=== PATIENT | male | born 1965 | race Caucasian/White ===

== ENCOUNTER → 2023-01-14 | Outpatient (CLI) | payer OTHER ==
--- NOTE | 2023-01-14 11:31 | CA ---
Exercise Stress Test Report Name: Anup Carson Exam Date: 01/14/2023 09:12 Exam Location: [place] Stress Ht (in): 67 Wt (lb): 200 BSA: 2.02 Ordering Phys: Mansoor Ramon DO Referring Phys: BO, Technologist: Mansoor Carlos Age: 57 Gender: M : 1965 Procedure CPT: Indications: R07.9 CHEST PAIN, UNSPECIFIED ICD-10 Codes: Patient History: Medications: METAMUCIL Meds past 24 hrs: Pretest Chest Pain: STRESS TEST Solomon Protocol Exercise Duration (min:sec): 09:[address] Depressions (mm): 1.5 Angina Score: 0 Keene Score: 2.33 Resting HR (bpm): 112 Peak HR (bpm): 177 Resting BP (mmHg): 122 / 81 Peak BP (mmHg): 143 / 79 MPHR: 165 Target HR: 140 % MPHR: 107 METS: 11.8 Total Dose: Peak Dose: Atropine: Double Product: 42840 BP Response: Stress Termination: Fatigue,TARGET HR REACHED/MAX EXERTION Stress Symptoms: FATIGUE Stress Summary: ECG ANALYSIS Resting ECG: Sinus rhythm. Normal conduction. No arrhythmias. Normal repolarization. Stress EC.[address] downsloping change. His EKG changes persisted in recovery CONCLUSIONS 1. Good exercise tolerance 2. Moderately Positive echocardiographic stress testing with 1.[address] segment depression that persisted in recovery ST segment changes consistent with ischemia. Dr. Maryse Mixon MD (Electronically Signed) Final Date: 14 Jan 2023 11:30
== END | disposition home or self-care (01) ==
LOC: RADNMMAIN 08:34
PROVIDERS: ATTEND Family Medicine
DX: F32.A Depression, unspecified (principal); R07.9 Chest pain, unspecified; I49.9 Cardiac arrhythmia, unspecified
CPT/HCPCS: 93017

== ENCOUNTER → 2023-05-09 | Day surgery (SDC) | payer OTHER ==
[2023-05-06 12:02] VITALS: BMI 30.5
[~2023-05-09] MED LIST: ALPRAZolam 0.25 MG TAB PO PRN; ALPRAZolam 0.5 MG TAB PO PRN; ASPIRIN 325 MG TAB PO STA; ASPIRIN 81 MG PO SCH; ATORVASTATIN 80 MG TAB PO SCH; ATORVASTATIN 80 MG TAB PO STA; HEPARIN SODIUM 1,000 UN/ML (10ML VL) IV ONE; HEPARIN SODIUM,PORCINE (1 ML) 2,500 UNIT in SODIUM CHLORIDE 0.9% 250 ML IRRIGATION PRN; HEPARIN SODIUM,PORCINE 10,000 UNIT in SODIUM CHLORIDE 0.9% 1,000 ML IRRIGATION PRN; IOPAMIDOL-370 100ML BTL INJ ONE; LIDOCAINE 1% INJ 10MG/ML (5 ML VIAL-PF) SQ ONE; METOPROLOL TARTRATE 25 MG TAB PO SCH; NITROGLYCERIN SL TABS 0.4 MG TAB SUBLINGUAL PRN; NON FORMULARY DRUG (Tirzepatide [Mounjaro] 2.5 MG/0.5 ML Pen.Injctr) SQ SCH; RX INFO: IV CONTRAST WAS GIVEN 1 EACH MISC MISCELLANE PRN; SODIUM CHLORIDE 0.9% 1,000 ML IV SCH; SODIUM CHLORIDE 0.9% 1,000 ML in EMPTY BAG 1 BAG IV SCH; VERAPAMIL SYRINGE (5 MG/10 ML) INTRAARTER ONE; fentaNYL (PF) 50 MCG/ML 2 ML AMP IVP ONE
[2023-05-09 08:05] LABS: Glucose,Whole Blood 168 mg/dL (70-110)
--- NOTE | 2023-05-09 08:59 | P.CARDCATH ---
Date of Procedure: 05/09/23 Description of Procedure: Cardiac Catheterization: The patient is a 57-year-old male with a known history of diabetes, hyperlipidemia who has been complaining of progressive dyspnea on exertion. He had an abnormal stress test. Recommendations were made regarding cardiac catheterization, the risks and the complications were discussed with the patient who is in full understanding and agreement. Procedure Description: Patient was brought to cathode builder in fasting semi-sedated state after receiving Fentanyl and Benadryl achieiving moderate conscious sedated state. Using Xylocaine Anesthesia and Seldinger technique, a 6-Kittitian sheath was introduced in the right radial artery . Subsequently, selective coronary angiography was performed using a 5-Kittitian 3.5 bend Mana catheter. Multiple views of the coronary artery including hemiaxial views were obtained. The 5-Kittitian pigtail catheter was used to cross the aortic valve and LVEDP was calculated. Following that, catheter and sheath were removed. Hemostasis was obtained with deployment of TR band . There was no immediate complication. Patient was returned to room in stable condition. Of note, the patient received a total of 5000 units of intravenous heparin as well as intra-arterial verapamil. Findings: Fluoroscopy: Calcification of the left main and LAD was noted Left main: This is a large size vessel, trifurcating into left circumflex, ramus intermedius and LAD, the distal left main has 30-40 % plaque LAD: This is a large size vessel, reaching to the apex giving rise to small diagonal branch. The proximal LAD has a 90% stenosis there is another plaque of 95% stenosis in the midsegment and another one in the mid distal segment of 90%. Left circumflex: This is a small nondominant vessel giving rise to small obtuse marginal branch and the third obtuse marginal branch is small in caliber and subtotally occluded Ramus intermedius: This is a large branching vessel, the proximal segment of the ramus intermedius has a 90% stenosis in one of the branch has a 99% stenosis there is single-vessel has no high-grade stenosis RCA: This is a large size vessel, bifurcating into PDA and PLV, dominant. The right coronary artery proximally has a 70% stenosis, the midsegment has an eccentric 85-90% stenosis and distally has a 99% stenosis. Left Ventriculogram: Not performed Hemodynamics: There was no gradient across the aortic valve , LVEDP was 20-25 mmHg Conclusion: 1. Calcified left main and proximal LAD 2. Severe triple-vessel disease 3. Right dominance 4. Mildly elevated LVEDP Recommendations: In view of the findings, the multivessel disease, the history of diabetes I have recommended to proceed with evaluation for CABG. The findings and the recommendations were discussed with the patient and the family and they were in full understanding and agreement. Duration of sedation is 17 minutes.
--- NOTE | 2023-05-09 10:01 | P.GSCN ---
History of Present Illness Consult date: 05/09/23 Reason for Consult: Multivessel CAD Requesting physician: Maryse Mixon History of present illness: This is a 57 year old male patient who follow outpatient with Dr. Hemanth Sy for primary care. He has a previous medical history of type 2 diabetes, hyperlipidemia, and is a lifelong nonsmoker. 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 For the last 1-1.5 years the patient reports a noticeable decrease in his activity level with increased exertional dyspnea. He denies any chest pain or pressure, dizziness, diaphoresis, palpitations, or any other symptomatology. Initially he thought this was just part of getting older, however it has been affecting his quality of life so he presented to his primary care physician who recommended a stress test. The stress test revealsed 1.[address] segment depression which persisted long into recovery suggesting ischemia. Due to this finding he was sent to Dr. Mixon who recommended echocardiogram and heart catheterization. Echocardiogram was completed in the cardiology office on 05/06/2023, results are not yet available to us. Heart catheterization was completed today demonstrating distal left main stenosis 30-40%, proximal LAD stenosis 90%, mid to distal LAD 95-90%, small nondominant left circumflex with subtotally occluded third obtuse marginal branch, 90% proximal ramus stenosis with a 99% branch lesion, proximal RCA stenosis 70%, mid RCA stenosis 85-90%, and distal RCA stenosis 99%. Left ventriculogram was completed with no gradient across the aortic valve, LVEDP 20- 25 mmHg. Due to findings on heart catheterization consultation was placed to cardiothoracic surgery for surgical revascularization recommendations. Review of Systems Review of systems was completed and was negative except as noted - Cardiovascular Reports as per HPI, Reports decreased exercise tolerance, Reports dyspnea on exertion Past Medical History Past Medical History: Coronary Artery Disease (CAD), Diabetes Mellitus, Hyperlipidemia Additional Past Medical History / Comment(s): hx of covid x2, remains unvaccinated History of Any Multi-Drug Resistant Organisms: None Reported Additional Past Surgical History / Comment(s): right cataract, wisdom teeth. Past Anesthesia/Blood Transfusion Reactions: No Reported Reaction Past Psychological History: No Psychological Hx Reported Smoking Status: Never smoker Past Alcohol Use History: Occasional Additional Past Alcohol Use History / Comment(s): Drinks approximately 1 drink 5 times per week Past Drug Use History: None Reported - Past Family History Mother Family Medical History: Congestive Heart Failure (CHF), Diabetes Mellitus Additional Family Medical History / Comment(s): Mom Father Family Medical History: Hypertension Medications and Allergies Home Medications Medication Instructions Recorded Confirmed Type Aspirin [Adult Low Dose Aspirin EC] 81 mg PO DAILY 05/06/23 05/09/23 History Metoprolol Tartrate [Lopressor] 25 mg PO BID 05/06/23 05/09/23 History Rosuvastatin Calcium [Crestor] 40 mg PO DAILY 05/06/23 05/09/23 History Tirzepatide [Mounjaro] 2.5 mg SQ SA 05/06/23 05/09/23 History Allergies Allergy/AdvReac Type Severity Reaction Status Date / Time No Known Allergies Allergy Verified 05/06/23 11:49 Surgical - Exam CONSTITUTIONAL: Awake and alert, appears comfortable, cooperative, well- developed, well-nourished, no pain, no acute distress EYES: Pupils equal, round, reactive to light, normal ocular movement ENT: Moist mucous membranes without oral lesions present NECK: No masses, no bruits, trachea midline RESPIRATORY: Lungs sounds clear to auscultation bilaterally. Respirations even, nonlabored. Currently on room air with oxygen saturation 99%. Strong cough. No chest wall deformities. No clubbing or cyanosis present CARDIOVASCULAR: S1, S2 present. Regular rate and rhythm, sinus rhythm on telemetry. Palpable peripheral pulses bilaterally. No edema present. No calf pain or tenderness noted. No significant lower extremity varicosities noted. Left radial Jonathan's test less than 8 seconds. Right radial T band in place GASTROINTESTINAL: Abdomen soft, nontender, nondistended without masses or organomegaly noted. There is no rebound or guarding present. Active bowel soun ds present 4 quadrants. GENITOURINARY: Deferred INTEGUMENTARY: Skin is warm and dry with evidence of good perfusion. NEUROLOGIC: Cranial nerves II through XII intact, normal coordination, no o bvious motor or sensory deficits, speech is normal MUSKULOSKELETAL: Able to move all extremities, strength equal bilaterally, normal posture PSYCHIATRIC: Alert and oriented to person place and time, appropriate affect, intact judgment and insight Results - Labs Abnormal Lab Results - Last 24 Hours (Table) 05/09/23 Range/Units 08:01 POC Glucose (mg/dL) 168 H (70-110) mg/dL - Imaging Additional studies: Heart catheterization films reviewed Assessment and Plan Assessment: Triple-vessel coronary artery disease Dyspnea on exertion, secondary to above Hyperlipidemia, cholesterol 330, triglycerides 184, LDL 242, recently started on Crestor Type 2 diabetes, hemoglobin A1c 9.7%, recently started on Mounjaro Lifetime nonsmoker Plan: The patient was seen and examined in the extended stay unit with present. Chart/diagnostics were reviewed. The case will be discussed in detail with Dr. Mcdaniel. The usual perioperative course of open heart surgery was discussed in detail with the patient and his , risks and benefits were reviewed, all questions were answered. Preoperative testing was initiated. Once completed will calculate STS risk score and discuss with the patient. Recommend continuing aspirin, statin, beta zhou therapy. Cardiology office called for echocardiogram report. More recommendations to follow regarding surgical revascularization once seen by surgeon. Thank you Dr. Mixon for this consult. I have personally seen and examined the patient, performed the documentation and the assessment and plan as written. Number of minutes spent on the visit: 30. MARÍA ELENA Danielle Attending Addendum: The patient was seen and evaluated with the DATA ENTRY MACHINE OPERATOR above. Agree with her assessment and plan. This is a 57 year-old active M with a hx of DM who presents for elective cardiac cath for anginal equivalent symptomology over the last 1.5 years. He is found to have significant 3v CAD. He is a good candidate for CABG, which was recommended. We will perform all pre-operative testing now and plan for myocardial revascularization within the next week or so. I spent 45 minutes reviewing the data and discussing plan of care with the patient and the care team. Time with Patient: Greater than 30
--- NOTE | 2023-05-09 11:06 | US ---
EXAMINATION TYPE: US carotid duplex BILAT DATE OF EXAM: 05/09/2023 COMPARISON: NONE CLINICAL INDICATION: Male, 57 years old with history of preop cardiac surgery; pre open heart TECHNIQUE: Carotid duplex ultrasound examination. Indirect Doppler criteria was utilized. FINDINGS: EXAM MEASUREMENTS: RIGHT: Peak Systolic Velocity (PSV) cm/sec ----- Right CCA: 74.0 ----- Right ICA: 88.4 ----- Right ECA: 110.0 ICA/CCA ratio: 1.2 RIGHT: End Diastole cm/sec ----- Right CCA: 17.2 ----- Right ICA: 28.1 ----- Right ECA: 13.2 LEFT: Peak Systolic Velocity (PSV) cm/sec ----- Left CCA: 68.9 ----- Left ICA: 108.0 ----- Left ECA: 108.0 ICA/CCA ratio: 1.6 LEFT: End Diastole cm/sec ----- Left CCA: 21.2 ----- Left ICA: 33.1 ----- Left ECA: 10.3 VERTEBRALS (direction of flow): Right Vertebral: Antegrade Left Vertebral: Antegrade Rhythm: Normal BOLT THREADER NOTES: Mild homogeneous plaque with no significant stenosis IMPRESSION: Mild plaque without hemodynamically significant stenosis. Criteria for Assigning % of Stenosis / Diameter reduction (Estimation based on the indirect measurements of the internal carotid artery velocities (ICA PSV). 1. Normal (no stenosis)=ICA PSV < 125 cm/s: ratio < 2.0: ICA EDV<40 cm/s. 2. Less than 50% stenosis=ICA PSV < 125 cm/s: ratio < 2.0: ICA EDV<40 cm/s. 3. 50 to 69% stenosis=ICA PSV of 125 to 230 cm/s: ration 2.0 ? 4.0: ICA EDV 40-100 cm/s. 4. Greater than 70% stenosis to near occlusion= ICA PSV > 230 cm/s: ratio > 4.0: ICA EDV > 100 cm/s. 5. Near occlusion= ICA PSV velocities may be low or undetectable: variable ratio and ICA EDV. 6. Total occlusion=unable to detect flow.
--- NOTE | 2023-05-09 11:10 | US ---
EXAMINATION TYPE: Pre-Operative Non-Invasive Evaluation of the hand for Potential Radial Artery Sruthi bethea, Measurements only DATE OF EXAM: 05/09/2023 10:35 AM CLINICAL INDICATION: Male, 57 years old with history of measurements only; pre open heart SIDE PERFORMED: Left TECHNIQUE: Radial artery is measured utilizing real time linear array sonography. Dominant hand: Right Duplex Findings: Radial Artery: Color flow seen Measurements in mm, transverse view: Left Radial: Proximal: 4.1 x 3.5 mm Mid: 2.2 x 2.2 mm Distal: 2.8 x 3.2 mm IMPRESSION: 1. Left radial measurements listed above. 2. Performing surgeon to determine viability as conduit.
--- NOTE | 2023-05-09 11:10 | US ---
EXAMINATION TYPE: US vein mapping BILAT DATE OF EXAM: 05/09/2023 10:35 AM COMPARISON: NONE CLINICAL INDICATION: Male, 57 years old with history of preop cardiac surgery; pre op SIDE PERFORMED: Bilateral TECHNIQUE: Lower extremity saphenous vein is examined and measured utilizing real time linear array sonography. DUPLEX FINDINGS: Greater Saphenous: Color flow seen Measurements in mm: Right Greater Saphenous: Groin: 5.4 x 6.8 mm High Thigh: 4.0 x 3.9 mm Mid Thigh: 2.1 x 2.4 mm Above Knee: 2.4 x 2.9 mm Knee: 2.2 x 3.0 mm Below Knee: 2.3 x 3.7 mm Mid Calf: 1.7 x 1.8 mm At Ankle: 2.4 x 2.9 mm Left Greater Saphenous: Groin: 5.2 x 5.5 mm High Thigh: 3.1 x 3.8 mm Mid Thigh: 3.7 x 4.1 mm Above Knee: 4.0 x 4.6 mm Knee: 4.3 x 4.6 mm Below Knee: 5.4 x 5.7 mm Mid Calf: 1.9 x 2.4 mm At Ankle: 3.3 x 4.1 mm IMPRESSION: 1. Bilateral GSV measurements listed above. 2. Performing surgeon to determine viability as conduit.
[2023-05-09 12:07] VITALS: BP 135/81; PULSE 78; RESP 16; TEMP 97.8
--- NOTE | 2023-05-09 12:09 | CT ---
EXAMINATION TYPE: CT chest wo con CT DLP: 450 mGycm, Automated exposure control for dose reduction was used. DATE OF EXAM: 05/09/2023 11:59 AM COMPARISON: None CLINICAL INDICATION:Male, 57 years old with history of eval ascending aorta for calcification; PHH, a bnormal CVL study TECHNIQUE: Multiple axial images were obtained through the chest without IV contrast. Lack of IV or o ral contrast limits evaluation of solid and hollow organ viscera. . Coronal and sagittal reformats re viewed. FINDINGS: LUNGS/ PLEURA: No pleural effusion, focal consolidation, or pneumothorax. No pulmonary nodule or mass . AIRWAY: Patent and unremarkable.. HEART: Size within normal limits. No pericardial effusion. Mild to moderate three-vessel coronary art pablo atherosclerotic disease. Minimal aortic valvular calcifications. Minimal aortic arch calcificatio ns. MEDIASTINUM: No evidence of adenopathy. VASCULATURE: No aortic aneurysm. MUSCULOSKELETAL: Mild disc degeneration changes are present throughout the thoracolumbar spine. No ac yakelin osseous abnormality. SOFT TISSUES/LYMPH NODES: Bilateral gynecomastia. LOWER NECK: No significant findings. UPPER ABDOMEN: Contrast demonstrated within both collecting systems from prior heart catheter. IMPRESSION: 1. No acute thoracic process. 2. Mild to moderate three-vessel coronary artery atherosclerotic disease.
[2023-05-09 12:45] LABS: HCT 40.9 % (39.0-53.0); HGB 14.3 gm/dL (13.0-17.5); MCH 28.3 pg (25.0-35.0); MCV 80.7 fL (80.0-100.0); Mean Platelet Volume 10.5; Platelet Count 159 k/uL (150-450); RBC 5.06 m/uL (4.30-5.90); RDW 12.1 % (11.5-15.5); WBC 7.5 k/uL (3.8-10.6)
[2023-05-09 13:17] LABS: African American GFR (CKD) >90 (>60 ml/min/1.73 sqM); Anion Gap 9 mmol/L; Blood Urea Nitrogen 16 mg/dL (9-20); Calcium 8.6 mg/dL (8.4-10.2); Carbon Dioxide 26 mmol/L (22-30); Chloride 104 mmol/L (98-107); Glucose 140 mg/dL (74-99); Non-African American GFR(CKD) >90 (>60 ml/min/1.73 sqM); Sodium 139 mmol/L (137-145)
[2023-05-09 13:27] LABS: Partial Thromboplastin Time 24.7 sec (22.0-30.0); Prothrombin Time 10.4 sec (9.0-12.0)
--- NOTE | 2023-05-09 14:06 | XR ---
EXAMINATION TYPE: XR chest 2V DATE OF EXAM: 05/09/2023 COMPARISON: NONE HISTORY: Shortness of breath TECHNIQUE: Frontal and lateral views of the chest are obtained. FINDINGS: Scattered senescent parenchymal changes noted. Hyperinflation compatible with COPD. No evidence for infiltrate. No evidence for atelectasis. Heart size is stable. Mediastinal structures are stable and grossly unremarkable. No evidence for hilar prominence. Degenerative changes dorsal spine. IMPRESSION: 1. No evidence for acute pulmonary disease.
[2023-05-09 20:25] LABS: Chol/HDL Ratio 3.16 Ratio; LDL Cholesterol,Calculated 73.2 mg/dL (0.0-131.0); VLDL Calculation 17.66 mg/dL (5.00-40.00)
[2023-05-09 22:52] LABS: Hepatitis A Antibody IgM Nonreactive; Hepatitis B Core IgM Nonreactive; Hepatitis B Surface Antigen Nonreactive; Hepatitis C IgG Antibody Nonreactive
== END | disposition home or self-care (01) ==
LOC: CATHCVL 07:44
PROVIDERS: ATTEND Internal Medicine Interventional Cardiology
DX: I25.10 Atherosclerotic heart disease of native coronary artery without angina pectoris (principal); E11.9 Type 2 diabetes mellitus without complications; E78.5 Hyperlipidemia, unspecified; F10.90 Alcohol use, unspecified, uncomplicated; Z87.891 Personal history of nicotine dependence; Z86.16 Personal history of COVID-19; Z98.890 Other specified postprocedural states; Z82.49 Family history of ischemic heart disease and other diseases of the circulatory system; Z79.82 Long term (current) use of aspirin
CPT/HCPCS: 94150; 93458; 80061; 80048; 80074; 83735; 85027; 85610; 85730; 87070; 83036; 71046; 93931; 93970; 93880; 71250; C1769 ×2; C1894; J2001; J3010; J1644; Q9967; 86850; 86900; 86901

== ENCOUNTER 2023-05-14 05:35 | Inpatient (IN) | payer OTHER ==
[~2023-05-14 05:35] MED LIST changes: +ALBUMIN HUMAN 25% 50 ML IV ONE; +ALBUMIN HUMAN 5% 500 ML IVPB ONE; -ALPRAZolam 0.25 MG TAB PO PRN; -ALPRAZolam 0.5 MG TAB PO PRN; +ASPIRIN 325 MG TAB PO ONE; -ASPIRIN 325 MG TAB PO STA; -ASPIRIN 81 MG PO SCH; +ATORVASTATIN 10 MG TAB PO ONE; -ATORVASTATIN 80 MG TAB PO SCH; -ATORVASTATIN 80 MG TAB PO STA; +CALCIUM CHLORIDE 100 MG/ML 10 ML SYRINGE IV ONE; +CHLORHEXIDINE GLUCONATE 15 ML CUP MUCOUS MEM ONE; +CLEVIDIPINE BUTYRATE 25 MG in EMPTY BAG 1 BAG IV ONE; +DILTIAZEM 125 MG in SODIUM CHLORIDE 0.9% 100 ML IV ONE; +ELECTROLYTE-A SOLUTION 1,000 ML with POTASSIUM CHLORIDE 100 MEQ, MAGNESIUM SULFATE 16 M... IV ONE; +ELECTROLYTE-A SOLUTION 1,000 ML with POTASSIUM CHLORIDE 40 MEQ, MAGNESIUM SULFATE 16 ME... IV ONE; -HEPARIN SODIUM,PORCINE (1 ML) 2,500 UNIT in SODIUM CHLORIDE 0.9% 250 ML IRRIGATION PRN; +HEPARIN SODIUM,PORCINE (1 ML) 5,000 UNIT in SODIUM CHLORIDE 0.9% 500 ML 500 ML IV ONE; -HEPARIN SODIUM,PORCINE 10,000 UNIT in SODIUM CHLORIDE 0.9% 1,000 ML IRRIGATION PRN; +INSULIN REGULAR 100 UNIT in SODIUM CHLORIDE 0.9% 100 ML IV ONE; -IOPAMIDOL-370 100ML BTL INJ ONE; +LACTATED RINGERS 1,000 ML IV ONE; -LIDOCAINE 1% INJ 10MG/ML (5 ML VIAL-PF) SQ ONE; +MAGNESIUM SULFATE 16.24 MEQ in EMPTY SYRINGE 1 SYR IV ONE; +MANNITOL 25% 12.5 GM/50 ML VIAL IV ONE; +METOPROLOL TARTRATE 12.5 MG TAB PO ONE; -METOPROLOL TARTRATE 25 MG TAB PO SCH; +NITROGLYCERIN SL TABS 0.4 MG TAB SUBLINGUAL ONE; -NITROGLYCERIN SL TABS 0.4 MG TAB SUBLINGUAL PRN; +NITROGLYCERIN-D5W PMX 25 MG/250 ML BTL IV ONE; +NITROGLYCERIN-D5W PMX 50 MG in DEXTROSE/WATER 1 250ML.BAG IV ONE; -NON FORMULARY DRUG (Tirzepatide [Mounjaro] 2.5 MG/0.5 ML Pen.Injctr) SQ SCH; +NOREPINEPHRINE 4 MG in SODIUM CHLORIDE 0.9% 250 ML IV ONE; +PAPAVERINE 360 MG in SODIUM CHLORIDE 0.9% 90 ML IV ONE; +PHENYLEPHRINE 10 MG/ML VIAL IV ONE; +PHENYLEPHRINE 40 MG in SODIUM CHLORIDE 0.9% 250 ML IV ONE; +PROTAMINE SULFATE 10 MG/ML 25 ML VIAL IV ONE; +PROTAMINE SULFATE 250 MG in EMPTY BAG 1 BAG IV ONE; -RX INFO: IV CONTRAST WAS GIVEN 1 EACH MISC MISCELLANE PRN; +SODIUM BICARB 8.4% 50 ML SYR (1 MEQ/ML) IV ONE; +SODIUM CHLORIDE 0.9% 1,000 ML IV ONE; -SODIUM CHLORIDE 0.9% 1,000 ML IV SCH; -SODIUM CHLORIDE 0.9% 1,000 ML in EMPTY BAG 1 BAG IV SCH; +TRANEXAMIC ACID 2,000 MG in SODIUM CHLORIDE 0.9% 80 ML IV ONE; -VERAPAMIL SYRINGE (5 MG/10 ML) INTRAARTER ONE; +ceFAZolin 1,000 MG in SODIUM CHLORIDE 0.9% IRRIGATIO 1,000 ML IRRIGATION ONE; -fentaNYL (PF) 50 MCG/ML 2 ML AMP IVP ONE; +propofoL 1,000 MG/100 ML VIAL IV ONE
[2023-05-14 06:38] LABS: Glucose,Whole Blood 146 mg/dL (70-110)
[2023-05-14] MEDS ORDERED: MIDAZOLAM HCL 10 MG/10 ML VIAL ONE (07:38)
[2023-05-14] MEDS ORDERED: fentaNYL (PF) 50 MCG/ML 50 ML VIAL ONE (07:38)
[2023-05-14] MEDS ORDERED: ALBUMIN HUMAN 5% (12.5gm) 250 ML BOTTLE IVPB ONE (07:38)
[2023-05-14] MEDS ORDERED: INSULIN REGULAR 100 UNIT/ML VIAL (IM/SQ) ONE (07:38)
[2023-05-14] MEDS ORDERED: PROTAMINE SULFATE 10 MG/ML 5 ML VIAL IV ONE (07:38)
[2023-05-14] MEDS ORDERED: TRANEXAMIC 1,000 MG/100ML-NACL PREMIX BAG ONE (07:38)
[2023-05-14] MEDS ORDERED: VECURONIUM 10 MG VIAL IV ONE (07:38)
[2023-05-14] MEDS ORDERED: HEPARIN SODIUM,PORCINE 5,000 UNIT/ML 1 ML VIAL ONE (07:38)
--- NOTE | 2023-05-14 08:04 | P.ANPRN ---
Procedure Note - Anesthesia - Invasive Line Right [place] Ange Time Out Performed: Yes Date of Procedure: 05/14/23 Time of Procedure: 07:30 Location of Patient: PreOp Preparation: Sterile Prep, Sterile Dressing Central Line Location: Internal Jugular Ultrasound Used: No Purpose - Visualization and Identification of Vasculature: No Image Stored and Saved: No Narrative: Central line placement per sterile protocol utilized.
[2023-05-14 13:25] LABS: ABG Glucose Whole Blood 127 mg/dL (75-99); ABG HCO3 27 mmol/L (21-25); ABG Hematocrit 27 % (34.0-46.0); ABG Ionized Calcium 4.2 mg/dL (4.5-5.3); ABG Lactic Acid Whole Blood 0.9 mmol/L (0.5-1.6); ABG Oxygen Saturation 99.7 % (94-97); ABG PCO2 40 mmHg (35-45); ABG PH 7.45 (7.35-7.45); ABG Potassium Whole Blood 4.3 mmol/L (3.4-4.5); ABG Sodium Whole Blood 143 mmol/L (135-146); ABG TCO2 29 mmol/L (19-24)
--- NOTE | 2023-05-14 14:06 | P.PN ---
Progress Note - Text Progress Note Date: 05/14/23 5 m walk test was completed at 6:45 AM this morning, patient tolerated well, time 1: 1.98 seconds, time 2: 2.11 seconds, time 3: 2.11 seconds.
[2023-05-14 14:09] LABS: ABG PO2 >420 mmHg (83-108)
[2023-05-14] MEDS ORDERED: IPRATROPIUM-ALBUTEROL 3 ML NEB INHALATION PRN (14:56)
[2023-05-14] MEDS ORDERED: DEXTROSE 50% SYRINGE 50 ML IVP PRN ×2 (14:56)
[2023-05-14] MEDS ORDERED: Potassium Replacement Protocol 1 EACH MISC MISCELLANE PRN (14:56)
[2023-05-14] MEDS ORDERED: METOCLOPRAMIDE 5 MG/ML 2 ML VIAL IVP PRN (14:56)
[2023-05-14] MEDS ORDERED: CALCIUM GLUCONATE IN NACL 2 GM in SALINE 1 100ML.BAG IVPB PRN (14:56)
[2023-05-14] MEDS ORDERED: Magnesium Replacement Protocol 1 EACH MISC MISCELLANE PRN (14:56)
[2023-05-14] MEDS ORDERED: ONDANSETRON 4 MG/2 ML VIAL IVP PRN (14:56)
[2023-05-14] MEDS ORDERED: Phosphorus Replacement Protoco 1 EACH MISC MISCELLANE PRN (14:56)
[2023-05-14] MEDS ORDERED: HYDROcodone/APAP 10-325MG 1 EACH TAB PO PRN (14:56)
[2023-05-14] MEDS ORDERED: BENZOCAINE/MENTHOL LOZENG 1 EACH LOZENGE MUCOUS MEM PRN (14:56)
[2023-05-14] MEDS ORDERED: AMIODARONE 450 MG in DEXTROSE 5% IN WATER 250 ML IV PRN ×2 (14:56)
[2023-05-14] MEDS ORDERED: AMIODARONE 360 MG in DEXTROSE 5% IN WATER 200 ML IV PRN ×2 (14:56)
[2023-05-14] MEDS ORDERED: DEXTROSE 5% IN WATER 100 ML with AMIODARONE 150 MG IV PRN (14:56)
[2023-05-14 15:27] LABS: Glucose,Whole Blood 126 mg/dL (70-110)
--- NOTE | 2023-05-14 15:41 | P.CNPUL ---
History of Present Illness Consult date: 05/14/23 Requesting physician: Agusto Best Reason for consult: other (Ventilator/critical care management) Chief complaint: Coronary artery disease History of present illness: This is a 57-year-old male patient with a known history of hyperlipidemia, diabetes mellitus, lifelong nonsmoker who had undergone a cardiac catheterization on 05/09/2023 and was found to have significant triple-vessel coronary artery disease and was recommended surgical revascularization. He was brought in today 05/14/2023 for surgery. He is seen in the immediate postoperative period in the intensive care unit. He is intubated and on mechanical ventilator rate of 14, tidal volume 500, FiO2 100% and a PEEP of 5. He has a mediastinal chest tube, left pleural chest tube. [place]-Ange catheter in place via the right IJ. Pacer wires in place. Cardiac output 4.7. Cardiac index 2.4. PA pressures 32/20. CVP 13. Currently in sinus rhythm. He has a nitroglycerin drip at 5 mcg/m. Insulin drip at 2 units per hour. Chest x-ray shows proper positioning of tubes and lines. No acute opacities or infiltrates. Labs pending. ABGs pending. Review of Systems ROS unobtainable: due to endotracheal tube Past Medical History Past Medical History: Coronary Artery Disease (CAD), Diabetes Mellitus, Hyperlipidemia Additional Past Medical History / Comment(s): hx of covid x2, remains unvaccinated History of Any Multi-Drug Resistant Organisms: None Reported Past Surgical History: Heart Catheterization Additional Past Surgical History / Comment(s): right cataract, wisdom teeth. Past Anesthesia/Blood Transfusion Reactions: No Reported Reaction Smoking Status: Never smoker - Past Family History Mother Family Medical History: Congestive Heart Failure (CHF), Diabetes Mellitus Additional Family Medical History / Comment(s): Mom Father Family Medical History: Hypertension Medications and Allergies Home Medications Medication Instructions Recorded Confirmed Type Aspirin [Adult Low Dose Aspirin EC] 81 mg PO DAILY 05/06/23 05/14/23 History Metoprolol Tartrate [Lopressor] 25 mg PO BID 05/06/23 05/14/23 History Rosuvastatin Calcium [Crestor] 40 mg PO DAILY 05/06/23 05/14/23 History Tirzepatide [Mounjaro] 2.5 mg SQ SA 05/06/23 05/14/23 History Allergies Allergy/AdvReac Type Severity Reaction Status Date / Time No Known Allergies Allergy Verified 05/14/23 06:08 Physical Exam Vitals: Vital Signs Temp Pulse BP BP Pulse Ox 05/14/23 06:15 97.6 F 78 129/71 155/81 98 Intake and Output 05/14/23 05/14/23 05/14/23 06:59 14:59 22:59 Intake Total 200 54 Output Total 2350 Balance 200 -2296 Intake: IV 200 54 Output: Urine 550 Estimated Blood Loss 1800 Other: Weight 88.4 kg GENERAL EXAM: Intubated, sedated 57-year-old male patient on the mechanical ventilator, comfortable in no apparent distress. HEAD: Normocephalic. EYES: Normal reaction of pupils, equal size. NOSE: Clear with pink turbinates. THROAT: No erythema or exudates. NECK: No masses, no JVD. CHEST: Surgical dressing dry and intact. Heart regular in place. Pacer wires in place. Chest tubes in place. LUNGS: Equal air entry with no crackles, wheeze, rhonchi or dullness. CVS: S1 and S2 normal with no audible murmur, regular rhythm. ABDOMEN: No hepatosplenomegaly, hypoactive bowel sounds, no guarding or rigidity. SPINE: No scoliosis or deformity SKIN: No rashes CENTRAL NERVOUS SYSTEM: Sedated, tone is normal in all 4 extremities. EXTREMITIES: There is no peripheral edema. No clubbing, no cyanosis. Peripheral pulses are intact. Results - Laboratory Findings ABG ABG pH 7.45 (7.35-7.45) 05/14/23 08:45 ABG pH Cancelled 05/14/23 08:45 ABG pH Cancelled 05/14/23 08:45 ABG pH Cancelled 05/14/23 08:45 ABG pH Cancelled 05/14/23 08:45 ABG pH Cancelled 05/14/23 08:45 ABG pCO2 40 mmHg (35-45) 05/14/23 08:45 ABG pCO2 Cancelled 05/14/23 08:45 ABG pCO2 Cancelled 05/14/23 08:45 ABG pCO2 Cancelled 05/14/23 08:45 ABG pCO2 Cancelled 05/14/23 08:45 ABG pCO2 Cancelled 05/14/23 08:45 ABG pO2 >420 mmHg (83-108) H 05/14/23 08:45 ABG pO2 Cancelled 05/14/23 08:45 ABG pO2 Cancelled 05/14/23 08:45 ABG pO2 Cancelled 05/14/23 08:45 ABG pO2 Cancelled 05/14/23 08:45 ABG pO2 Cancelled 05/14/23 08:45 ABG O2 Saturation 99.7 % (94-97) H 05/14/23 08:45 ABG O2 Saturation Cancelled 05/14/23 08:45 ABG O2 Saturation Cancelled 05/14/23 08:45 ABG O2 Saturation Cancelled 05/14/23 08:45 ABG O2 Saturation Cancelled 05/14/23 08:45 ABG O2 Saturation Cancelled 05/14/23 08:45 Abnormal lab findings: Abnormal Labs 05/09/23 05/14/23 05/14/23 12:51 06:37 08:45 ABG pO2 >420 H ABG HCO3 27 H ABG Total CO2 29 H ABG O2 Saturation 99.7 H ABG Hematocrit 27 L ABG Ionized Calcium 4.2 L ABG Glucose 127 H Hemoglobin 8.7 L POC Glucose (mg/dL) 146 H Arterial Blood Glucose 127 H Crossmatch See Detail - Diagnostic Findings Chest x-ray: image reviewed Assessment and Plan Assessment: Coronary artery disease, status post coronary artery bypass grafting x 5 with a PELAYO to the diagonal 2 to the LAD, left radial to the OM1 to the Diag 1, saphenous vein graft to the RCA. Postoperative day #0 Diabetes mellitus Hyperlipidemia Lifelong nonsmoker Plan: The patient was seen and evaluated Chest x-ray and medications reviewed Labs and ABGs are pending We'll plan for early extubation protocol if tolerated We will continue to follow and make further recommendations based on his clinical status I have personally seen and examined the patient, performed the documentation and the assessment and plan as written. Number of minutes spent on the visit: 20.
--- NOTE | 2023-05-14 15:44 | XR ---
EXAMINATION TYPE: XR chest 1V portable DATE OF EXAM: 05/14/2023 COMPARISON: 05/09/2023 HISTORY: Postop cardiac surgery TECHNIQUE: Single frontal view of the chest is obtained. FINDINGS: Bilateral lower lobe infiltrate and small effusion. There is postsurgical change within th e adrenal gland. ET tube is seen with tip approximately 2.9 cm above duc. [place]-Ange catheter with the tip overlying the proximal pulmonary outflow tract. NG tube seen to the level of the gastric fund us. Suggestion of a mediastinal drain. No sizable pneumothorax. Mild central venous congestion. IMPRESSION: 1. Postoperative changes with left lower lobe consolidation and small effusion. Mild central venous c ongestion. No sizable pneumothorax.
[2023-05-14 15:52] LABS: ABG Base Excess 1.1 mmol/L; ABG HCO3 26 mmol/L (21-25); ABG Oxygen Saturation 99.3 % (94-97); ABG PCO2 45 mmHg (35-45); ABG PH 7.38 (7.35-7.45); ABG PO2 313 mmHg (83-108); ABG TCO2 28 mmol/L (19-24)
[2023-05-14] MEDS ORDERED: INSULIN REGULAR 100 UNIT in SODIUM CHLORIDE 0.9% 100 ML IV SCH (16:00)
[2023-05-14] MEDS ORDERED: IPRATROPIUM-ALBUTEROL 3 ML NEB INHALATION SCH (16:00)
[2023-05-14 16:03] LABS: Glucose,Whole Blood 138 mg/dL (70-110)
[2023-05-14 16:07] LABS: Basophils % (A) 0 %; Eosinophils # (A) 0.1 k/uL (0-0.7); Eosinophils % (A) 1 %; HCT 32.8 % (39.0-53.0); HGB 11.5 gm/dL (13.0-17.5); Lymphocytes # (A) 1.3 k/uL (1.0-4.8); Lymphocytes % (A) 9 %; MCH 28.4 pg (25.0-35.0); MCHC 35.1 g/dL (31.0-37.0); MCV 80.9 fL (80.0-100.0); Mean Platelet Volume 10.7; Monocytes # (A) 0.6 k/uL (0-1.0); Monocytes % (A) 4 %; Neutrophils # (A) 12.5 k/uL (1.3-7.7); Neutrophils % (A) 86 %; Platelet Count 112 k/uL (150-450); RBC 4.06 m/uL (4.30-5.90); RDW 12.3 % (11.5-15.5); WBC 14.6 k/uL (3.8-10.6)
[2023-05-14] MEDS: HEPARIN SODIUM,PORCINE 5,000 UNIT/ML 1 ML VIAL SQ SCH (16:11)
[2023-05-14 16:21] LABS: Ionized Calcium 4.9 mg/dL (4.5-5.3)
[2023-05-14 16:27] LABS: INR 1.2 (<1.2); Partial Thromboplastin Time 26.8 sec (22.0-30.0); Prothrombin Time 11.9 sec (9.0-12.0)
[2023-05-14 16:33] LABS: ALT 21 U/L (4-49); AST 40 U/L (17-59); African American GFR (CKD) >90 (>60 ml/min/1.73 sqM); Albumin 2.8 g/dL (3.5-5.0); Alkaline Phosphatase 45 U/L (38-126); Anion Gap 3 mmol/L; Blood Urea Nitrogen 15 mg/dL (9-20); Calcium 8.1 mg/dL (8.4-10.2); Carbon Dioxide 27 mmol/L (22-30); Chloride 110 mmol/L (98-107); Glucose 116 mg/dL (74-99); Magnesium 2.8 mg/dL (1.6-2.3); Non-African American GFR(CKD) >90 (>60 ml/min/1.73 sqM); Potassium 4.7 mmol/L (3.5-5.1); Sodium 140 mmol/L (137-145); Total Bilirubin 0.9 mg/dL (0.2-1.3); Total Protein 4.7 g/dL (6.3-8.2)
[2023-05-14 17:05] LABS: Glucose,Whole Blood 156 mg/dL (70-110)
[2023-05-14] MEDS: ACETAMINOPHEN IV (For NPO) 1,000 MG in EMPTY BAG 1 BAG IVPB SCH ×2 (17:30→23:40)
[2023-05-14 17:32] LABS: Basophils % (A) 0 %; Eosinophils % (A) 0 %; HCT 33.3 % (39.0-53.0); HGB 11.9 gm/dL (13.0-17.5); Lymphocytes # (A) 1.2 k/uL (1.0-4.8); Lymphocytes % (A) 7 %; MCHC 35.7 g/dL (31.0-37.0); MCV 81.4 fL (80.0-100.0); Mean Platelet Volume 10.6; Monocytes % (A) 6 %; Neutrophils # (A) 14.1 k/uL (1.3-7.7); Neutrophils % (A) 86 %; Platelet Count 107 k/uL (150-450); RBC 4.09 m/uL (4.30-5.90); RDW 12.3 % (11.5-15.5); WBC 16.5 k/uL (3.8-10.6)
--- NOTE | 2023-05-14 17:34 | P.CRDCN ---
History of Present Illness Consult date: 05/14/23 History of present illness: History of Present Illness: The patient is a 57-year-old male who underwent CABG today. He was recently seen in our office with newly diagnosed hyperlipidemia, he had diabetes not treated for many years and presented with symptoms of progressive fatigue, dyspnea and had an abnormal stress test. He underwent cardiac catheterization and was found to have calcified left main and proximal LAD with severe triple- vessel CAD. His intubated, sedated but starting to wake up, in sinus mechanism. Hemodynamically stable. There is no evidence of atrial fibrillation or ventricular tachyarrhythmia. His systolic function preoperatively was mildly impaired. Medications: Rosuvastatin 40 mg daily, metoprolol 25 mg twice a day, aspirin once a day, Mounjaro Review of Systems: Could not be obtained, the patient is intubated Physical Examination: 57-year-old male, intubated starting to wake up,Blood pressure 106/50, Heart rate 9 Head: Normocephalic. Eyes: Sclerae nonicteric. Neck: Good carotid upstroke, no bruit, no jugular venous distention, Nocona-Ange catheter in place. Lungs: Clear to auscultation, anteriorly. Heart: Regular rate and rhythm, S1-S2, no S3, no rub. No murmur. Abdomen: Soft nontender, positive bowel sounds no organomegaly. Extremities: No edema, intact distal pulses. Labs: Hemoglobin 11.9, BUN 15, creatinine 0.63 EKG: Pending Impression: 1. Status post CABG for severe triple-vessel disease 2. Diabetes 3. Hyperlipidemia 4. Mild cardiomyopathy preoperatively Plan: 1. Wean and extubate per protocol 2. Restart beta zhou and statin 3. Depending on the blood pressure add an VIKI inhibitor 4. Depending on his progress further recommendations will be made 5. Thank you for this consult we will follow with you Past Medical History Past Medical History: Coronary Artery Disease (CAD), Diabetes Mellitus, Hyperlipidemia Additional Past Medical History / Comment(s): hx of covid x2, remains unvaccinated History of Any Multi-Drug Resistant Organisms: None Reported Past Surgical History: Heart Catheterization Additional Past Surgical History / Comment(s): right cataract, wisdom teeth. Past Anesthesia/Blood Transfusion Reactions: No Reported Reaction Smoking Status: Never smoker - Past Family History Mother Family Medical History: Congestive Heart Failure (CHF), Diabetes Mellitus Additional Family Medical History / Comment(s): Mom Father Family Medical History: Hypertension Medications and Allergies Home Medications Medication Instructions Recorded Confirmed Type Aspirin [Adult Low Dose Aspirin EC] 81 mg PO DAILY 05/06/23 05/14/23 History Metoprolol Tartrate [Lopressor] 25 mg PO BID 05/06/23 05/14/23 History Rosuvastatin Calcium [Crestor] 40 mg PO DAILY 05/06/23 05/14/23 History Tirzepatide [Mounjaro] 2.5 mg SQ SA 05/06/23 05/14/23 History Allergies Allergy/AdvReac Type Severity Reaction Status Date / Time No Known Allergies Allergy Verified 05/14/23 06:08 Physical Exam Vitals: Vital Signs Temp Pulse Pulse Resp BP BP Pulse Ox 05/14/23 17:15 96 15 100 05/14/23 17:00 98.6 F 104 H 19 99 05/14/23 16:56 94 05/14/23 16:47 92 05/14/23 16:45 92 14 100 05/14/23 16:30 94 17 100 05/14/23 16:20 94 17 100 05/14/23 16:10 89 14 100 05/14/23 16:00 87 14 99 05/14/23 15:55 05/14/23 15:50 87 14 99 05/14/23 15:40 86 14 100 05/14/23 15:30 89 14 99 05/14/23 15:20 98.1 F 82 14 99 05/14/23 15:19 84 15 05/14/23 15:15 05/14/23 06:15 97.6 F 78 129/71 155/81 98 FiO2 05/14/23 17:15 05/14/23 17:00 40 05/14/23 16:56 05/14/23 16:47 05/14/23 16:45 05/14/23 16:30 05/14/23 16:20 05/14/23 16:10 05/14/23 16:00 50 05/14/23 15:55 50 05/14/23 15:50 05/14/23 15:40 05/14/23 15:30 100 05/14/23 15:20 100 05/14/23 15:19 05/14/23 15:15 100 05/14/23 06:15 Intake and Output 05/14/23 05/14/23 05/14/23 06:59 14:59 22:59 Intake Total 200 54 288.176 Output Total 2350 405 Balance 200 -2296 -116.824 Intake: IV 200 54 258 CO/CI 40 LR 100 Pressure bags 18 ceFAZolin 2 gm In Sodium 100 Chloride 0.9% 50 ml @ 100 mls/hr IVPB Q8HR [facility] Rx# :[id number] Intake, IV Titration 30.176 Amount Insulin Regular 100 unit 1.667 In Sodium Chloride 0.9% 100 ml @ Per Protocol IV .Q0M JE[facility] PAUL Rx#:[id number] propofoL 1,000 mg In 28.509 Empty Bag 1 bag @ Titrate IV .Q0M JEAN PAUL Rx#: [id number] Output: Chest Tube Drainage 360 Chest Tube Left 190 Chest Tube Right Pleural/ 170 Mediastinal Drainage 0 L. leg FARHAT 0 L. wrist FARHAT 0 Urine 550 45 Estimated Blood Loss 1800 Other: Voiding Method Indwelling Catheter Weight 88.4 kg ABP, PAP, CO, CI - Last 8 Hours Arterial Blood Pressure 106/53 Arterial Blood Pressure 102/56 Arterial Blood Pressure 122/66 Arterial Blood Pressure 120/67 Arterial Blood Pressure 108/69 Arterial Blood Pressure 123/65 Arterial Blood Pressure 122/62 Arterial Blood Pressure 111/61 Arterial Blood Pressure 118/65 Arterial Blood Pressure 115/47 Arterial Blood Pressure 105/59 Pulmonary Artery Pressure 34/22 Pulmonary Artery Pressure 34/22 Pulmonary Artery Pressure 33/23 Pulmonary Artery Pressure 35/20 Pulmonary Artery Pressure 32/22 Pulmonary Artery Pressure 34/20 Pulmonary Artery Pressure 33/19 Pulmonary Artery Pressure 29/19 Pulmonary Artery Pressure 30/17 Pulmonary Artery Pressure 35/22 Pulmonary Artery Pressure 36/17 Pulmonary Artery Pressure 36/19 Cardiac Output 5.1 Cardiac Output 5.3 Cardiac Output 5.3 Cardiac Output 4.7 Cardiac Index 2.6 Cardiac Index 2.7 Cardiac Index 2.7 Cardiac Index 2.4 Results 05/14/23 15:17 05/14/23 15:17 Cardiac Enzymes 05/14/23 Range/Units 15:17 AST 40 (17-59) U/L Coagulation 05/14/23 Range/Units 15:17 PT 11.9 (9.0-12.0) sec APTT 26.8 (22.0-30.0) sec CBC 05/14/23 Range/Units 15:17 WBC 14.6 H (3.8-10.6) k/uL RBC 4.06 L (4.30-5.90) m/uL Hgb 11.5 L (13.0-17.5) gm/dL Hct 32.8 L (39.0-53.0) % Plt Count 112 L (150-450) k/uL Comprehensive Metabolic Panel 05/14/23 Range/Units 15:17 Sodium 140 (137-145) mmol/L Potassium 4.7 (3.5-5.1) mmol/L Chloride 110 H (98-107) mmol/L Carbon Dioxide 27 (22-30) mmol/L BUN 15 (9-20) mg/dL Creatinine 0.63 L (0.66-1.25) mg/dL Glucose 116 H (74-99) mg/dL Calcium 8.1 L (8.4-10.2) mg/dL AST 40 (17-59) U/L ALT 21 (4-49) U/L Alkaline Phosphatase 45 (38-126) U/L Total Protein 4.7 L (6.3-8.2) g/dL Albumin 2.8 L (3.5-5.0) g/dL Current Medications Generic Name Dose Route Start Last Admin Trade Name Freq PRN Reason Stop Dose Admin Hydrocodone Bitart/Acetaminophen 1 each 05/15/23 01:24 Hydrocodone/Apap 5-325mg 1 Each Tab PO Q4HR PRN Moderate Pain (Scale 4 to 6) Hydrocodone Bitart/Acetaminophen 1 each 05/14/23 14:56 Hydrocodone/Apap 10-325mg 1 Each Tab PO Q4HR PRN Severe Pain (Scale 7 to 10) Albuterol/Ipratropium 3 ml 05/14/23 14:56 Ipratropium-Albuterol 3 Ml Neb INHALATION RT-Q2H PRN Shortness Of Breath Or Wheezing Albuterol/Ipratropium 3 ml 05/14/23 16:00 05/14/23 16:47 Ipratropium-Albuterol 3 Ml Neb INHALATION 05/14/23 19:26 3 ml RT-Q4H JEAN PAUL Administration Albuterol/Ipratropium 3 ml 05/14/23 20:00 Ipratropium-Albuterol 3 Ml Neb INHALATION RT-QID JEAN PAUL Aspirin 325 mg 05/15/23 09:00 Aspirin 325 Mg Tab PO DAILY [facility] Atorvastatin Calcium 40 mg 05/15/23 09:00 Atorvastatin 40 Mg Tab PO DAILY [facility] Benzocaine/Menthol 1 each 05/14/23 14:56 Benzocaine/Menthol Lozeng 1 Each Lozenge MUCOUS MEM Q2H PRN Sore Throat Bisacodyl 10 mg 05/15/23 09:00 Bisacodyl 10 Mg Supp RECTAL DAILY PRN Constipation Clopidogrel Bisulfate 75 mg 05/15/23 09:00 Clopidogrel 75 Mg Tab PO DAILY [facility] Dextrose/Water 25 ml 05/14/23 14:56 Dextrose 50% Syringe 50 Ml IVP PER PROTOCOL PRN Hypoglycemia Protocol Dextrose/Water 50 ml 05/14/23 14:56 Dextrose 50% Syringe 50 Ml IVP PER PROTOCOL PRN Hypoglycemia Protocol Heparin Sodium (Porcine) 5,000 unit 05/14/23 16:00 05/14/23 16:11 Heparin Sodium,Porcine 5,000 Unit/Ml 1 Ml Vial SQ 5,000 unit Q8HR [facility] Administration Amiodarone HCl 150 mg/ 103 mls @ 618 mls/hr 05/14/23 14:56 Dextrose/Water IV .Q10M PRN A.FIB/FLUTTER Protocol Amiodarone HCl 360 mg/ 207.2 mls @ 34.533 mls/hr 05/14/23 14:56 Dextrose/Water IV .Q6H PRN A.FIB/FLUTTER Protocol 1 MG/MIN Amiodarone HCl 450 mg/ 250 mls @ 16.667 mls/hr 05/14/23 14:56 Dextrose/Water IV .Q15H PRN A.FIB/FLUTTER Protocol 0.5 MG/MIN Albumin Human 250 ml/ IV 250 mls @ 250 mls/hr 05/14/23 14:56 Solution IVPB 05/16/23 14:57 Q1HR PRN For Volume Protocol Propofol 1,000 mg/ IV Solution 100 mls @ 0 mls/hr 05/14/23 14:56 05/14/23 17:24 IV 0 mcg/kg/min .Q0M [facility] 0 mls/hr Titration Protocol Titrate Acetaminophen 1,000 mg/ IV 100 mls @ 400 mls/hr 05/14/23 18:00 Solution IVPB 05/15/23 00:14 Q6HR JEAN PAUL Cefazolin Sodium 2 gm/ Sodium 50 mls @ 100 mls/hr 05/14/23 16:00 05/14/23 16:11 Chloride IVPB 05/15/23 08:29 100 mls/hr Q8HR [facility] Administration Protocol Calcium Gluconate/Sodium 100 mls @ 100 mls/hr 05/14/23 14:56 Chloride 2 gm/ IV Solution IVPB 05/18/23 14:57 ONCE PRN Ionized Calcium less than 4.4 Insulin Human Regular 100 unit 101 mls @ 0 mls/hr 05/14/23 16:00 05/14/23 17:06 / Sodium Chloride IV 1.5 units/hr .Q0M JEAN PAUL 1.515 mls/hr Titration Protocol Per Protocol Magnesium Hydroxide 2,400 mg 05/15/23 09:00 Magnesium Hydroxide 2,400 Mg/30 Ml Cup PO BID PRN Constipation Metoclopramide HCl 10 mg 05/14/23 14:56 Metoclopramide 5 Mg/Ml 2 Ml Vial IVP Q4H PRN Nausea And Vomiting Metoprolol Tartrate 12.5 mg 05/15/23 09:00 Metoprolol Tartrate 12.5 Mg Tab PO BID [facility] Miscellaneous Information 1 each 05/14/23 14:56 Potassium Replacement Protocol 1 Each Misc MISCELLANE DAILY PRN Per Protocol Protocol Miscellaneous Information 1 each 05/14/23 14:56 Magnesium Replacement Protocol 1 Each Misc MISCELLANE DAILY PRN Per Protocol Protocol Miscellaneous Information 1 each 05/14/23 14:56 Phosphorus Replacement Protoco 1 Each Misc MISCELLANE DAILY PRN Per Protocol Protocol Ondansetron HCl 4 mg 05/14/23 14:56 Ondansetron 4 Mg/2 Ml Vial IVP Q6HR PRN Nausea And Vomiting Oxycodone HCl 5 mg 05/15/23 01:24 Oxycodone Hcl 5 Mg Tab PO Q6HR PRN Moderate Pain (Scale 4 to 6) Oxycodone HCl 10 mg 05/14/23 14:56 Oxycodone Hcl 5 Mg Tab PO Q4HR PRN Severe Pain (Scale 7 to 10) Pantoprazole Sodium 40 mg 05/15/23 09:00 Pantoprazole 40 Mg/10 Ml Vial IVP DAILY [facility] Senna/Docusate Sodium 2 each 05/15/23 21:00 Sennosides-Docusate Sodium 1 Each Tab PO HS JEAN PAUL Sodium Chloride 10 ml 05/14/23 21:00 Sodium Chloride 0.9% Flush 10 Ml Syringe IV BID JEAN PAUL Intake and Output 05/14/23 05/14/23 05/14/23 06:59 14:59 22:59 Intake Total 200 54 288.176 Output Total 2350 405 Balance 200 -2296 -116.824 Intake: IV 200 54 258 CO/CI 40 LR 100 Pressure bags 18 ceFAZolin 2 gm In Sodium 100 Chloride 0.9% 50 ml @ 100 mls/hr IVPB Q8HR [facility] Rx# :[id number] Intake, IV Titration 30.176 Amount Insulin Regular 100 unit 1.667 In Sodium Chloride 0.9% 100 ml @ Per Protocol IV .Q0M [facility] Rx#:[id number] propofoL 1,000 mg In 28.509 Empty Bag 1 bag @ Titrate IV .Q0M [facility] Rx#: [id number] Output: Chest Tube Drainage 360 Chest Tube Left 190 Chest Tube Right Pleural/ 170 Mediastinal Drainage 0 L. leg FARHAT 0 L. wrist FARHAT 0 Urine 550 45 Estimated Blood Loss 1800 Other: Voiding Method Indwelling Catheter Weight 88.4 kg 05/14/23 15:17 05/14/23 15:17
[2023-05-14 17:54] LABS: Glucose,Whole Blood 163 mg/dL (70-110)
[2023-05-14 18:10] LABS: ABG Base Excess -2.4 mmol/L; ABG HCO3 24 mmol/L (21-25); ABG Oxygen Saturation 98.7 % (94-97); ABG PCO2 47 mmHg (35-45); ABG PH 7.31 (7.35-7.45); ABG PO2 158 mmHg (83-108); ABG TCO2 25 mmol/L (19-24)
[2023-05-14 18:48] LABS: Glucose,Whole Blood 164 mg/dL (70-110)
[2023-05-14 18:50] LABS: ABG Base Excess -2.3 mmol/L; ABG HCO3 24 mmol/L (21-25); ABG Oxygen Saturation 98.9 % (94-97); ABG PCO2 44 mmHg (35-45); ABG PH 7.34 (7.35-7.45); ABG PO2 177 mmHg (83-108); ABG TCO2 25 mmol/L (19-24)
[2023-05-14] MEDS ORDERED: MUPIROCIN 2% OINT 22 GM TUBE NASAL ONE (19:00)
[2023-05-14 19:41] LABS: Glucose,Whole Blood 161 mg/dL (70-110)
[2023-05-14 20:26] LABS: Basophils % (A) 0 %; Eosinophils % (A) 0 %; HCT 31.9 % (39.0-53.0); HGB 11.5 gm/dL (13.0-17.5); Lymphocytes # (A) 0.6 k/uL (1.0-4.8); Lymphocytes % (A) 4 %; MCH 29.2 pg (25.0-35.0); MCV 81.1 fL (80.0-100.0); Mean Platelet Volume 11.2; Monocytes # (A) 0.7 k/uL (0-1.0); Monocytes % (A) 4 %; Neutrophils # (A) 14.2 k/uL (1.3-7.7); Neutrophils % (A) 91 %; Platelet Count 112 k/uL (150-450); RBC 3.93 m/uL (4.30-5.90); RDW 12.5 % (11.5-15.5); WBC 15.6 k/uL (3.8-10.6)
[2023-05-14] MEDS: ALBUMIN HUMAN 5% 250 ML in EMPTY BAG 1 BAG IVPB PRN (20:28)
[2023-05-14] MEDS: IPRATROPIUM-ALBUTEROL 3 ML NEB INHALATION SCH (20:58)
[2023-05-14 21:15] LABS: Glucose,Whole Blood 143 mg/dL (70-110)
[2023-05-14] MEDS: METOPROLOL TARTRATE 12.5 MG TAB PO SCH (21:22)
[2023-05-14 22:08] LABS: Glucose,Whole Blood 139 mg/dL (70-110)
[2023-05-14 23:01] LABS: Glucose,Whole Blood 144 mg/dL (70-110)
[2023-05-15 00:12] LABS: Glucose,Whole Blood 141 mg/dL (70-110)
[2023-05-15] MEDS: HEPARIN SODIUM,PORCINE 5,000 UNIT/ML 1 ML VIAL SQ SCH ×3 (00:26→16:34)
[2023-05-15 01:15] LABS: Glucose,Whole Blood 135 mg/dL (70-110)
[2023-05-15 02:05] LABS: Glucose,Whole Blood 131 mg/dL (70-110)
[2023-05-15 03:01] LABS: Glucose,Whole Blood 122 mg/dL (70-110)
[2023-05-15 04:11] LABS: Glucose,Whole Blood 115 mg/dL (70-110)
[2023-05-15 05:01] LABS: Glucose,Whole Blood 108 mg/dL (70-110)
[2023-05-15] MEDS: HYDROcodone/APAP 5-325MG 1 EACH TAB PO PRN ×2 (05:18→14:39)
[2023-05-15 05:30] LABS: Basophils % (A) 0 %; Eosinophils % (A) 0 %; HCT 27.5 % (39.0-53.0); Lymphocytes # (A) 1.2 k/uL (1.0-4.8); Lymphocytes % (A) 10 %; MCH 28.7 pg (25.0-35.0); MCHC 35.5 g/dL (31.0-37.0); Mean Platelet Volume 11.3; Monocytes # (A) 0.8 k/uL (0-1.0); Monocytes % (A) 6 %; Neutrophils # (A) 10.5 k/uL (1.3-7.7); Neutrophils % (A) 83 %; Platelet Count 113 k/uL (150-450); RDW 12.4 % (11.5-15.5); WBC 12.6 k/uL (3.8-10.6)
[2023-05-15 05:34] LABS: Ionized Calcium 4.6 mg/dL (4.5-5.3)
[2023-05-15 05:43] LABS: ALT 18 U/L (4-49); AST 40 U/L (17-59); African American GFR (CKD) >90 (>60 ml/min/1.73 sqM); Albumin 2.8 g/dL (3.5-5.0); Alkaline Phosphatase 44 U/L (38-126); Anion Gap 3 mmol/L; Blood Urea Nitrogen 17 mg/dL (9-20); Calcium 7.7 mg/dL (8.4-10.2); Carbon Dioxide 26 mmol/L (22-30); Chloride 108 mmol/L (98-107); Glucose 96 mg/dL (74-99); Magnesium 2.2 mg/dL (1.6-2.3); Non-African American GFR(CKD) >90 (>60 ml/min/1.73 sqM); Potassium 4.1 mmol/L (3.5-5.1); Sodium 137 mmol/L (137-145); Total Bilirubin 0.7 mg/dL (0.2-1.3); Total Protein 4.7 g/dL (6.3-8.2)
[2023-05-15 05:59] LABS: HGB 9.8 gm/dL (13.0-17.5)
[2023-05-15] MEDS: ALBUMIN HUMAN 5% 250 ML in EMPTY BAG 1 BAG IVPB PRN ×4 (06:27→11:15)
[2023-05-15 06:50] LABS: Glucose,Whole Blood 125 mg/dL (70-110)
--- NOTE | 2023-05-15 07:47 | P.PN ---
Subjective Progress Note Date: 05/15/23 PROGRESS NOTE The patient is a 57-year-old male who underwent CABG today. He was recently seen in our office with newly diagnosed hyperlipidemia, he had diabetes not treated for many years and presented with symptoms of progressive fatigue, dyspnea and had an abnormal stress test. He underwent cardiac catheterization and was found to have calcified left main and proximal LAD with severe triple- vessel CAD. His intubated, sedated but starting to wake up, in sinus mechanism. Hemodynamically stable. There is no evidence of atrial fibrillation or ventricular tachyarrhythmia. His systolic function preoperatively was mildly impaired. May 15: The patient underwent CABG yesterday, he is extubated, sitting up in the chair. Complaining of soreness in the chest. He is in sinus mechanism. He denies any dizziness or palpitations, no nausea. He is on no vasopressors . Urinary output is good. Medications: Metoprolol 12.5 mg twice a day, aspirin, Lasix 75 mg daily, Lipitor 40 mg daily PHYSICAL EXAMINATION: Blood pressure 94/40 heart rate 90 LUNGS: Mild decreased breath sounds at the base HEART: Regular rate and rhythm, S1, S2. No S3. No systolic murmur ABDOMEN: Soft, nontender, no organomegaly EXTREMETIES: No edema LAB: Hemoglobin 9.8, WBC 12.6, BUN 17 creatinine 0.71 IMPRESSION: 1. Status post CABG, stable, extubated 2. Hyperlipidemia 3. And diabetes mellitus 4. Mild cardiomyopathy preoperatively PLAN: 1. Continue present therapy 2. Follow blood pressure and if stable add VIKI inhibitor 3. Increase physical activity 4. Incentive spirometry Objective - Vital Signs Vital signs: Vital Signs Temp 99.9 F H 05/15/23 04:00 Pulse 98 05/15/23 07:00 Resp 21 05/15/23 07:00 BP 83/48 05/15/23 06:45 Pulse Ox 95 05/15/23 07:00 FiO2 50 05/14/23 17:38 Intake & Output 05/14/23 05/15/23 05/15/23 18:59 06:59 18:59 Intake Total 540.506 3066.725 279 Output Total 2975 690 50 Balance -2071.348 1620.725 229 Weight 92 kg Intake: IV 870 1808 59 ACETAMINOPHEN IV (For NPO 400 100 ) 1,000 mg In Empty Bag 1 bag @ 400 mls/hr IVPB Q6HR JE[facility] Rx#:[id number] Albumin Human 5% 250 ml 750 In Empty Bag 1 bag @ 250 mls/hr IVPB Q1HR PRN Rx#: [id number] CO/CI 80 200 LR 200 600 50 Pressure bags 36 108 9 ceFAZolin 2 gm In Sodium 100 50 Chloride 0.9% 50 ml @ 100 mls/hr IVPB Q8HR [facility] Rx# :[id number] Intake, IV Titration 33.652 32.725 Amount Insulin Regular 100 unit 5.143 32.725 In Sodium Chloride 0.9% 100 ml @ Per Protocol IV .Q0M JE[facility] PAUL Rx#:[id number] propofoL 1,000 mg In 28.509 Empty Bag 1 bag @ Titrate IV .Q0M JE[facility] PAUL Rx#: [id number] Oral 470 220 Output: Chest Tube Drainage 380 200 30 Chest Tube Left 200 55 15 Chest Tube Right Pleural/ 180 145 15 Mediastinal Drainage 20 45 L. leg FARHAT 10 40 L. wrist FARHAT 10 5 Urine 775 445 20 Estimated Blood Loss 1800 Other: Voiding Method Indwelling Catheter Indwelling Catheter ABP, PAP, CO, CI - Last Documented Arterial Blood Pressure 94/42 Pulmonary Artery Pressure 29/8 Cardiac Output 6.3 Cardiac Index 3.2 - Labs CBC & Chem 7: 05/15/23 05:08 05/15/23 05:08 Labs: Abnormal Lab Results - Last 24 Hours (Table) 05/09/23 05/14/23 05/14/23 Range/Units 12:51 08:45 15:17 WBC 14.6 H (3.8-10.6) k/uL RBC 4.06 L (4.30-5.90) m/uL Hgb 11.5 L (13.0-17.5) gm/dL Hct 32.8 L (39.0-53.0) % Plt Count 112 L (150-450) k/uL Neutrophils # 12.5 H (1.3-7.7) k/uL Lymphocytes # (1.0-4.8) k/uL INR (<1.2) ABG pH (7.35-7.45) ABG pCO2 (35-45) mmHg ABG pO2 >420 H (83-108) mmHg ABG HCO3 27 H (21-25) mmol/L ABG Total CO2 29 H (19-24) mmol/L ABG O2 Saturation 99.7 H (94-97) % ABG Hematocrit 27 L (34.0-46.0) % ABG Ionized Calcium 4.2 L (4.5-5.3) mg/dL ABG Glucose 127 H (75-99) mg/dL Hemoglobin 8.7 L (13.0-17.5) gm/dL Chloride (98-107) mmol/L Creatinine (0.66-1.25) mg/dL Glucose (74-99) mg/dL POC Glucose (mg/dL) (70-110) mg/dL Calcium (8.4-10.2) mg/dL Magnesium (1.6-2.3) mg/dL Total Protein (6.3-8.2) g/dL Albumin (3.5-5.0) g/dL Arterial Blood Glucose 127 H (75-99) mg/dL Crossmatch See Detail 05/14/23 05/14/23 05/14/23 Range/Units 15:17 15:17 15:24 WBC (3.8-10.6) k/uL RBC (4.30-5.90) m/uL Hgb (13.0-17.5) gm/dL Hct (39.0-53.0) % Plt Count (150-450) k/uL Neutrophils # (1.3-7.7) k/uL Lymphocytes # (1.0-4.8) k/uL INR 1.2 H (<1.2) ABG pH (7.35-7.45) ABG pCO2 (35-45) mmHg ABG pO2 (83-108) mmHg ABG HCO3 (21-25) mmol/L ABG Total CO2 (19-24) mmol/L ABG O2 Saturation (94-97) % ABG Hematocrit (34.0-46.0) % ABG Ionized Calcium (4.5-5.3) mg/dL ABG Glucose (75-99) mg/dL Hemoglobin (13.0-17.5) gm/dL Chloride 110 H (98-107) mmol/L Creatinine 0.63 L (0.66-1.25) mg/dL Glucose 116 H (74-99) mg/dL POC Glucose (mg/dL) 126 H (70-110) mg/dL Calcium 8.1 L (8.4-10.2) mg/dL Magnesium 2.8 H (1.6-2.3) mg/dL Total Protein 4.7 L (6.3-8.2) g/dL Albumin 2.8 L (3.5-5.0) g/dL Arterial Blood Glucose (75-99) mg/dL Crossmatch 05/14/23 05/14/23 05/14/23 Range/Units 15:50 15:59 17:05 WBC (3.8-10.6) k/uL RBC (4.30-5.90) m/uL Hgb (13.0-17.5) gm/dL Hct (39.0-53.0) % Plt Count (150-450) k/uL Neutrophils # (1.3-7.7) k/uL Lymphocytes # (1.0-4.8) k/uL INR (<1.2) ABG pH (7.35-7.45) ABG pCO2 (35-45) mmHg ABG pO2 313 H (83-108) mmHg ABG HCO3 26 H (21-25) mmol/L ABG Total CO2 28 H (19-24) mmol/L ABG O2 Saturation 99.3 H (94-97) % ABG Hematocrit (34.0-46.0) % ABG Ionized Calcium (4.5-5.3) mg/dL ABG Glucose (75-99) mg/dL Hemoglobin (13.0-17.5) gm/dL Chloride (98-107) mmol/L Creatinine (0.66-1.25) mg/dL Glucose (74-99) mg/dL POC Glucose (mg/dL) 138 H 156 H (70-110) mg/dL Calcium (8.4-10.2) mg/dL Magnesium (1.6-2.3) mg/dL Total Protein (6.3-8.2) g/dL Albumin (3.5-5.0) g/dL Arterial Blood Glucose (75-99) mg/dL Crossmatch 05/14/23 05/14/23 05/14/23 Range/Units 17:15 17:53 17:56 WBC 16.5 H (3.8-10.6) k/uL RBC 4.09 L (4.30-5.90) m/uL Hgb 11.9 L (13.0-17.5) gm/dL Hct 33.3 L (39.0-53.0) % Plt Count 107 L (150-450) k/uL Neutrophils # 14.1 H (1.3-7.7) k/uL Lymphocytes # (1.0-4.8) k/uL INR (<1.2) ABG pH 7.31 L (7.35-7.45) ABG pCO2 47 H (35-45) mmHg ABG pO2 158 H (83-108) mmHg ABG HCO3 (21-25) mmol/L ABG Total CO2 25 H (19-24) mmol/L ABG O2 Saturation 98.7 H (94-97) % ABG Hematocrit (34.0-46.0) % ABG Ionized Calcium (4.5-5.3) mg/dL ABG Glucose (75-99) mg/dL Hemoglobin (13.0-17.5) gm/dL Chloride (98-107) mmol/L Creatinine (0.66-1.25) mg/dL Glucose (74-99) mg/dL POC Glucose (mg/dL) 163 H (70-110) mg/dL Calcium (8.4-10.2) mg/dL Magnesium (1.6-2.3) mg/dL Total Protein (6.3-8.2) g/dL Albumin (3.5-5.0) g/dL Arterial Blood Glucose (75-99) mg/dL Crossmatch 05/14/23 05/14/23 05/14/23 Range/Units 18:47 18:48 19:38 WBC (3.8-10.6) k/uL RBC (4.30-5.90) m/uL Hgb (13.0-17.5) gm/dL Hct (39.0-53.0) % Plt Count (150-450) k/uL Neutrophils # (1.3-7.7) k/uL Lymphocytes # (1.0-4.8) k/uL INR (<1.2) ABG pH 7.34 L (7.35-7.45) ABG pCO2 (35-45) mmHg ABG pO2 177 H (83-108) mmHg ABG HCO3 (21-25) mmol/L ABG Total CO2 25 H (19-24) mmol/L ABG O2 Saturation 98.9 H (94-97) % ABG Hematocrit (34.0-46.0) % ABG Ionized Calcium (4.5-5.3) mg/dL ABG Glucose (75-99) mg/dL Hemoglobin (13.0-17.5) gm/dL Chloride (98-107) mmol/L Creatinine (0.66-1.25) mg/dL Glucose (74-99) mg/dL POC Glucose (mg/dL) 164 H 161 H (70-110) mg/dL Calcium (8.4-10.2) mg/dL Magnesium (1.6-2.3) mg/dL Total Protein (6.3-8.2) g/dL Albumin (3.5-5.0) g/dL Arterial Blood Glucose (75-99) mg/dL Crossmatch 05/14/23 05/14/23 05/14/23 Range/Units 20:03 21:13 22:07 WBC 15.6 H (3.8-10.6) k/uL RBC 3.93 L (4.30-5.90) m/uL Hgb 11.5 L (13.0-17.5) gm/dL Hct 31.9 L (39.0-53.0) % Plt Count 112 L (150-450) k/uL Neutrophils # 14.2 H (1.3-7.7) k/uL Lymphocytes # 0.6 L (1.0-4.8) k/uL INR (<1.2) ABG pH (7.35-7.45) ABG pCO2 (35-45) mmHg ABG pO2 (83-108) mmHg ABG HCO3 (21-25) mmol/L ABG Total CO2 (19-24) mmol/L ABG O2 Saturation (94-97) % ABG Hematocrit (34.0-46.0) % ABG Ionized Calcium (4.5-5.3) mg/dL ABG Glucose (75-99) mg/dL Hemoglobin (13.0-17.5) gm/dL Chloride (98-107) mmol/L Creatinine (0.66-1.25) mg/dL Glucose (74-99) mg/dL POC Glucose (mg/dL) 143 H 139 H (70-110) mg/dL Calcium (8.4-10.2) mg/dL Magnesium (1.6-2.3) mg/dL Total Protein (6.3-8.2) g/dL Albumin (3.5-5.0) g/dL Arterial Blood Glucose (75-99) mg/dL Crossmatch 05/14/23 05/15/23 05/15/23 Range/Units 22:59 00:07 01:13 WBC (3.8-10.6) k/uL RBC (4.30-5.90) m/uL Hgb (13.0-17.5) gm/dL Hct (39.0-53.0) % Plt Count (150-450) k/uL Neutrophils # (1.3-7.7) k/uL Lymphocytes # (1.0-4.8) k/uL INR (<1.2) ABG pH (7.35-7.45) ABG pCO2 (35-45) mmHg ABG pO2 (83-108) mmHg ABG HCO3 (21-25) mmol/L ABG Total CO2 (19-24) mmol/L ABG O2 Saturation (94-97) % ABG Hematocrit (34.0-46.0) % ABG Ionized Calcium (4.5-5.3) mg/dL ABG Glucose (75-99) mg/dL Hemoglobin (13.0-17.5) gm/dL Chloride (98-107) mmol/L Creatinine (0.66-1.25) mg/dL Glucose (74-99) mg/dL POC Glucose (mg/dL) 144 H 141 H 135 H (70-110) mg/dL Calcium (8.4-10.2) mg/dL Magnesium (1.6-2.3) mg/dL Total Protein (6.3-8.2) g/dL Albumin (3.5-5.0) g/dL Arterial Blood Glucose (75-99) mg/dL Crossmatch 05/15/23 05/15/23 05/15/23 Range/Units 02:04 03:00 04:08 WBC (3.8-10.6) k/uL RBC (4.30-5.90) m/uL Hgb (13.0-17.5) gm/dL Hct (39.0-53.0) % Plt Count (150-450) k/uL Neutrophils # (1.3-7.7) k/uL Lymphocytes # (1.0-4.8) k/uL INR (<1.2) ABG pH (7.35-7.45) ABG pCO2 (35-45) mmHg ABG pO2 (83-108) mmHg ABG HCO3 (21-25) mmol/L ABG Total CO2 (19-24) mmol/L ABG O2 Saturation (94-97) % ABG Hematocrit (34.0-46.0) % ABG Ionized Calcium (4.5-5.3) mg/dL ABG Glucose (75-99) mg/dL Hemoglobin (13.0-17.5) gm/dL Chloride (98-107) mmol/L Creatinine (0.66-1.25) mg/dL Glucose (74-99) mg/dL POC Glucose (mg/dL) 131 H 122 H 115 H (70-110) mg/dL Calcium (8.4-10.2) mg/dL Magnesium (1.6-2.3) mg/dL Total Protein (6.3-8.2) g/dL Albumin (3.5-5.0) g/dL Arterial Blood Glucose (75-99) mg/dL Crossmatch 05/15/23 05/15/23 05/15/23 Range/Units 05:08 05:08 06:48 WBC 12.6 H (3.8-10.6) k/uL RBC 3.40 L (4.30-5.90) m/uL Hgb 9.8 L D (13.0-17.5) gm/dL Hct 27.5 L (39.0-53.0) % Plt Count 113 L (150-450) k/uL Neutrophils # 10.5 H (1.3-7.7) k/uL Lymphocytes # (1.0-4.8) k/uL INR (<1.2) ABG pH (7.35-7.45) ABG pCO2 (35-45) mmHg ABG pO2 (83-108) mmHg ABG HCO3 (21-25) mmol/L ABG Total CO2 (19-24) mmol/L ABG O2 Saturation (94-97) % ABG Hematocrit (34.0-46.0) % ABG Ionized Calcium (4.5-5.3) mg/dL ABG Glucose (75-99) mg/dL Hemoglobin (13.0-17.5) gm/dL Chloride 108 H (98-107) mmol/L Creatinine (0.66-1.25) mg/dL Glucose (74-99) mg/dL POC Glucose (mg/dL) 125 H (70-110) mg/dL Calcium 7.7 L (8.4-10.2) mg/dL Magnesium (1.6-2.3) mg/dL Total Protein 4.7 L (6.3-8.2) g/dL Albumin 2.8 L (3.5-5.0) g/dL Arterial Blood Glucose (75-99) mg/dL Crossmatch
[2023-05-15] MEDS ORDERED: ALBUMIN HUMAN 25% 50 ML in EMPTY BAG 1 BAG IVPB ONE (07:56)
--- NOTE | 2023-05-15 08:02 | XR ---
EXAMINATION TYPE: XR chest 1V portable DATE OF EXAM: 05/15/2023 Comparison: 05/14/2023 Clinical History: 57-year-old male Post Operative Cardiac Surgery Findings: Right IJ M[place]annon-Ange catheter tip in the region of the right main pulmonary outflow tract. Mediastinal drain. Interval extubation and removal of NG tube. There is a trace 2 mm left apical pneumothorax. Heart upper limits of normal in size. Median sternoto my wires and post-CABG clips. Mild interstitial prominence. Impression: 1. Trace 2 mm left apical pneumothorax. 2. Post-CABG changes. Correlate for underlying mild pulmonary vascular congestion.
[2023-05-15] MEDS: SODIUM CHLORIDE 0.9% 1,000 ML IV SCH (08:32)
[2023-05-15] MEDS: CLOPIDOGREL 75 MG TAB PO SCH (08:33)
[2023-05-15] MEDS: ATORVASTATIN 40 MG TAB PO SCH (08:33)
[2023-05-15] MEDS: ASPIRIN 325 MG TAB PO SCH (08:33)
[2023-05-15] MEDS: IPRATROPIUM-ALBUTEROL 3 ML NEB INHALATION SCH ×3 (08:43→21:41)
[2023-05-15] MEDS ORDERED: bisacodyL 10 MG SUPP RECTAL PRN (09:00)
[2023-05-15] MEDS ORDERED: METOPROLOL TARTRATE 12.5 MG TAB PO SCH (09:00)
[2023-05-15] MEDS ORDERED: MAGNESIUM HYDROXIDE 2,400 MG/30 ML CUP PO PRN (09:00)
[2023-05-15] MEDS ORDERED: PANTOPRAZOLE 40 MG/10 ML VIAL IVP SCH (09:00)
[2023-05-15 10:03] LABS: Glucose,Whole Blood 158 mg/dL (70-110)
[2023-05-15 10:06] LABS: Glucose,Whole Blood 157 mg/dL (70-110)
[2023-05-15 11:03] VITALS: BMI 31.7
[2023-05-15 11:15] LABS: Glucose,Whole Blood 148 mg/dL (70-110)
--- NOTE | 2023-05-15 12:44 | P.PN ---
Subjective Progress Note Date: 05/15/23 Principal diagnosis: Multivessel coronary artery disease, status post CABG, postoperative day #1 This is a 57-year-old male patient with a known history of hyperlipidemia, diabetes mellitus, lifelong nonsmoker who had undergone a cardiac catheterization on 05/09/2023 and was found to have significant triple-vessel coronary artery disease and was recommended surgical revascularization. He was brought in today 05/14/2023 for surgery. He is seen in the immediate postoperative period in the intensive care unit. He is intubated and on mechanical ventilator rate of 14, tidal volume 500, FiO2 100% and a PEEP of 5. He has a mediastinal chest tube, left pleural chest tube. [place] catheter in place via the right IJ. Pacer wires in place. Cardiac output 4.7. Cardiac i ndex 2.4. PA pressures 32/20. CVP 13. Currently in sinus rhythm. He has a nitroglycerin drip at 5 mcg/m. Insulin drip at 2 units per hour. Chest x-ray shows proper positioning of tubes and lines. No acute opacities or infiltrates. Labs pending. ABGs pending. Patient was reevaluated today on 05/15/2023, patient was extubated last night a few hours after he arrived to the ICU uneventfully, he is on 3 L nasal cannula with O2 saturation 99%, blood pressure seems to be a bit soft 94/38. Patient does not seem to be in any distress. Continues to have mediastinal and chest tube in place. He is on insulin drip at 3 units per hour chest x-ray today is reassuring. Post CABG changes, could not appreciate any pneumothorax as noted by the radiologist he does have a bit of a mild pulmonary vascular congestion. WBC count is 12.6 and 9.8 electrolytes are normal renal profile is normal Objective - Vital Signs Vital signs: Vital Signs Temp 99.7 F H 05/15/23 08:00 Pulse 86 05/15/23 11:15 Resp 22 05/15/23 11:15 BP 83/48 05/15/23 09:00 Pulse Ox 99 05/15/23 11:15 FiO2 50 05/14/23 17:38 Intake & Output 05/14/23 05/15/23 05/15/23 18:59 06:59 18:59 Intake Total 415.940 7132.725 865.767 Output Total 2975 690 150 Balance -2071.348 1620.725 715.767 Weight 92 kg 92 kg Intake: IV 870 1808 639 ACETAMINOPHEN IV (For NPO 400 100 ) 1,000 mg In Empty Bag 1 bag @ 400 mls/hr IVPB Q6HR JEAN PAUL Rx#:[id number] Albumin Human 5% 250 ml 750 300 In Empty Bag 1 bag @ 250 mls/hr IVPB Q1HR PRN Rx#: [id number] CO/CI 80 200 20 LR 200 600 150 Pressure bags 36 108 39 Sodium Chloride 0.9% 1, 80 000 ml @ 50 mls/hr IV . Q20H JEAN PAUL Rx#:[id number] ceFAZolin 2 gm In Sodium 100 50 50 Chloride 0.9% 50 ml @ 100 mls/hr IVPB Q8HR JEAN PAUL Rx# :[id number] Intake, IV Titration 33.652 32.725 6.767 Amount Insulin Regular 100 unit 5.143 32.725 6.767 In Sodium Chloride 0.9% 100 ml @ Per Protocol IV .Q0M JEAN PAUL Rx#:[id number] propofoL 1,000 mg In 28.509 Empty Bag 1 bag @ Titrate IV .Q0M JEAN PAUL Rx#: [id number] Oral 470 220 Output: Chest Tube Drainage 380 200 30 Chest Tube Left 200 55 15 Chest Tube Right Pleural/ 180 145 15 Mediastinal Drainage 20 45 L. leg FARHAT 10 40 L. wrist FARHAT 10 5 Urine 775 445 120 Estimated Blood Loss 1800 Other: Voiding Method Indwelling Catheter Indwelling Catheter Indwelling Catheter ABP, PAP, CO, CI - Last Documented Arterial Blood Pressure 94/38 Pulmonary Artery Pressure 28/15 Cardiac Output 5.8 Cardiac Index 2.9 - Exam GENERAL EXAM: Revealed 57-year-old white male pleasant in no distress on 3 L nasal cannula HEAD: Normocephalic. EENT: PERRLA, EOMI, nonicteric, no neck masses, no JVD. CHEST: Surgical dressing dry and intact. Heart regular in place. Pacer wires in place. Chest tubes in place. LUNGS: Diminished breath sounds and crackles at the bases CVS: S1 and S2 normal with no audible murmur, regular rhythm. Positive pericardial rub ABDOMEN: Soft nontender no megaly no rebound no guarding. SKIN: No rashes CENTRAL NERVOUS SYSTEM: Alert and oriented 3 no gross focal deficit EXTREMITIES: No clubbing edema or cyanosis. Psychiatric: Normal mood affect and normal mental status examination - Labs CBC & Chem 7: 05/15/23 05:08 05/15/23 05:08 Labs: Abnormal Lab Results - Last 24 Hours (Table) 05/09/23 05/14/23 05/14/23 Range/Units 12:51 08:45 15:17 WBC 14.6 H (3.8-10.6) k/uL RBC 4.06 L (4.30-5.90) m/uL Hgb 11.5 L (13.0-17.5) gm/dL Hct 32.8 L (39.0-53.0) % Plt Count 112 L (150-450) k/uL Neutrophils # 12.5 H (1.3-7.7) k/uL Lymphocytes # (1.0-4.8) k/uL INR (<1.2) ABG pH (7.35-7.45) ABG pCO2 (35-45) mmHg ABG pO2 >420 H (83-108) mmHg ABG HCO3 27 H (21-25) mmol/L ABG Total CO2 29 H (19-24) mmol/L ABG O2 Saturation 99.7 H (94-97) % ABG Hematocrit 27 L (34.0-46.0) % ABG Ionized Calcium 4.2 L (4.5-5.3) mg/dL ABG Glucose 127 H (75-99) mg/dL Hemoglobin 8.7 L (13.0-17.5) gm/dL Chloride (98-107) mmol/L Creatinine (0.66-1.25) mg/dL Glucose (74-99) mg/dL POC Glucose (mg/dL) (70-110) mg/dL Calcium (8.4-10.2) mg/dL Magnesium (1.6-2.3) mg/dL Total Protein (6.3-8.2) g/dL Albumin (3.5-5.0) g/dL Arterial Blood Glucose 127 H (75-99) mg/dL Crossmatch See Detail 05/14/23 05/14/23 05/14/23 Range/Units 15:17 15:17 15:24 WBC (3.8-10.6) k/uL RBC (4.30-5.90) m/uL Hgb (13.0-17.5) gm/dL Hct (39.0-53.0) % Plt Count (150-450) k/uL Neutrophils # (1.3-7.7) k/uL Lymphocytes # (1.0-4.8) k/uL INR 1.2 H (<1.2) ABG pH (7.35-7.45) ABG pCO2 (35-45) mmHg ABG pO2 (83-108) mmHg ABG HCO3 (21-25) mmol/L ABG Total CO2 (19-24) mmol/L ABG O2 Saturation (94-97) % ABG Hematocrit (34.0-46.0) % ABG Ionized Calcium (4.5-5.3) mg/dL ABG Glucose (75-99) mg/dL Hemoglobin (13.0-17.5) gm/dL Chloride 110 H (98-107) mmol/L Creatinine 0.63 L (0.66-1.25) mg/dL Glucose 116 H (74-99) mg/dL POC Glucose (mg/dL) 126 H (70-110) mg/dL Calcium 8.1 L (8.4-10.2) mg/dL Magnesium 2.8 H (1.6-2.3) mg/dL Total Protein 4.7 L (6.3-8.2) g/dL Albumin 2.8 L (3.5-5.0) g/dL Arterial Blood Glucose (75-99) mg/dL Crossmatch 05/14/23 05/14/23 05/14/23 Range/Units 15:50 15:59 17:05 WBC (3.8-10.6) k/uL RBC (4.30-5.90) m/uL Hgb (13.0-17.5) gm/dL Hct (39.0-53.0) % Plt Count (150-450) k/uL Neutrophils # (1.3-7.7) k/uL Lymphocytes # (1.0-4.8) k/uL INR (<1.2) ABG pH (7.35-7.45) ABG pCO2 (35-45) mmHg ABG pO2 313 H (83-108) mmHg ABG HCO3 26 H (21-25) mmol/L ABG Total CO2 28 H (19-24) mmol/L ABG O2 Saturation 99.3 H (94-97) % ABG Hematocrit (34.0-46.0) % ABG Ionized Calcium (4.5-5.3) mg/dL ABG Glucose (75-99) mg/dL Hemoglobin (13.0-17.5) gm/dL Chloride (98-107) mmol/L Creatinine (0.66-1.25) mg/dL Glucose (74-99) mg/dL POC Glucose (mg/dL) 138 H 156 H (70-110) mg/dL Calcium (8.4-10.2) mg/dL Magnesium (1.6-2.3) mg/dL Total Protein (6.3-8.2) g/dL Albumin (3.5-5.0) g/dL Arterial Blood Glucose (75-99) mg/dL Crossmatch 05/14/23 05/14/23 05/14/23 Range/Units 17:15 17:53 17:56 WBC 16.5 H (3.8-10.6) k/uL RBC 4.09 L (4.30-5.90) m/uL Hgb 11.9 L (13.0-17.5) gm/dL Hct 33.3 L (39.0-53.0) % Plt Count 107 L (150-450) k/uL Neutrophils # 14.1 H (1.3-7.7) k/uL Lymphocytes # (1.0-4.8) k/uL INR (<1.2) ABG pH 7.31 L (7.35-7.45) ABG pCO2 47 H (35-45) mmHg ABG pO2 158 H (83-108) mmHg ABG HCO3 (21-25) mmol/L ABG Total CO2 25 H (19-24) mmol/L ABG O2 Saturation 98.7 H (94-97) % ABG Hematocrit (34.0-46.0) % ABG Ionized Calcium (4.5-5.3) mg/dL ABG Glucose (75-99) mg/dL Hemoglobin (13.0-17.5) gm/dL Chloride (98-107) mmol/L Creatinine (0.66-1.25) mg/dL Glucose (74-99) mg/dL POC Glucose (mg/dL) 163 H (70-110) mg/dL Calcium (8.4-10.2) mg/dL Magnesium (1.6-2.3) mg/dL Total Protein (6.3-8.2) g/dL Albumin (3.5-5.0) g/dL Arterial Blood Glucose (75-99) mg/dL Crossmatch 05/14/23 05/14/23 05/14/23 Range/Units 18:47 18:48 19:38 WBC (3.8-10.6) k/uL RBC (4.30-5.90) m/uL Hgb (13.0-17.5) gm/dL Hct (39.0-53.0) % Plt Count (150-450) k/uL Neutrophils # (1.3-7.7) k/uL Lymphocytes # (1.0-4.8) k/uL INR (<1.2) ABG pH 7.34 L (7.35-7.45) ABG pCO2 (35-45) mmHg ABG pO2 177 H (83-108) mmHg ABG HCO3 (21-25) mmol/L ABG Total CO2 25 H (19-24) mmol/L ABG O2 Saturation 98.9 H (94-97) % ABG Hematocrit (34.0-46.0) % ABG Ionized Calcium (4.5-5.3) mg/dL ABG Glucose (75-99) mg/dL Hemoglobin (13.0-17.5) gm/dL Chloride (98-107) mmol/L Creatinine (0.66-1.25) mg/dL Glucose (74-99) mg/dL POC Glucose (mg/dL) 164 H 161 H (70-110) mg/dL Calcium (8.4-10.2) mg/dL Magnesium (1.6-2.3) mg/dL Total Protein (6.3-8.2) g/dL Albumin (3.5-5.0) g/dL Arterial Blood Glucose (75-99) mg/dL Crossmatch 05/14/23 05/14/23 05/14/23 Range/Units 20:03 21:13 22:07 WBC 15.6 H (3.8-10.6) k/uL RBC 3.93 L (4.30-5.90) m/uL Hgb 11.5 L (13.0-17.5) gm/dL Hct 31.9 L (39.0-53.0) % Plt Count 112 L (150-450) k/uL Neutrophils # 14.2 H (1.3-7.7) k/uL Lymphocytes # 0.6 L (1.0-4.8) k/uL INR (<1.2) ABG pH (7.35-7.45) ABG pCO2 (35-45) mmHg ABG pO2 (83-108) mmHg ABG HCO3 (21-25) mmol/L ABG Total CO2 (19-24) mmol/L ABG O2 Saturation (94-97) % ABG Hematocrit (34.0-46.0) % ABG Ionized Calcium (4.5-5.3) mg/dL ABG Glucose (75-99) mg/dL Hemoglobin (13.0-17.5) gm/dL Chloride (98-107) mmol/L Creatinine (0.66-1.25) mg/dL Glucose (74-99) mg/dL POC Glucose (mg/dL) 143 H 139 H (70-110) mg/dL Calcium (8.4-10.2) mg/dL Magnesium (1.6-2.3) mg/dL Total Protein (6.3-8.2) g/dL Albumin (3.5-5.0) g/dL Arterial Blood Glucose (75-99) mg/dL Crossmatch 05/14/23 05/15/23 05/15/23 Range/Units 22:59 00:07 01:13 WBC (3.8-10.6) k/uL RBC (4.30-5.90) m/uL Hgb (13.0-17.5) gm/dL Hct (39.0-53.0) % Plt Count (150-450) k/uL Neutrophils # (1.3-7.7) k/uL Lymphocytes # (1.0-4.8) k/uL INR (<1.2) ABG pH (7.35-7.45) ABG pCO2 (35-45) mmHg ABG pO2 (83-108) mmHg ABG HCO3 (21-25) mmol/L ABG Total CO2 (19-24) mmol/L ABG O2 Saturation (94-97) % ABG Hematocrit (34.0-46.0) % ABG Ionized Calcium (4.5-5.3) mg/dL ABG Glucose (75-99) mg/dL Hemoglobin (13.0-17.5) gm/dL Chloride (98-107) mmol/L Creatinine (0.66-1.25) mg/dL Glucose (74-99) mg/dL POC Glucose (mg/dL) 144 H 141 H 135 H (70-110) mg/dL Calcium (8.4-10.2) mg/dL Magnesium (1.6-2.3) mg/dL Total Protein (6.3-8.2) g/dL Albumin (3.5-5.0) g/dL Arterial Blood Glucose (75-99) mg/dL Crossmatch 05/15/23 05/15/23 05/15/23 Range/Units 02:04 03:00 04:08 WBC (3.8-10.6) k/uL RBC (4.30-5.90) m/uL Hgb (13.0-17.5) gm/dL Hct (39.0-53.0) % Plt Count (150-450) k/uL Neutrophils # (1.3-7.7) k/uL Lymphocytes # (1.0-4.8) k/uL INR (<1.2) ABG pH (7.35-7.45) ABG pCO2 (35-45) mmHg ABG pO2 (83-108) mmHg ABG HCO3 (21-25) mmol/L ABG Total CO2 (19-24) mmol/L ABG O2 Saturation (94-97) % ABG Hematocrit (34.0-46.0) % ABG Ionized Calcium (4.5-5.3) mg/dL ABG Glucose (75-99) mg/dL Hemoglobin (13.0-17.5) gm/dL Chloride (98-107) mmol/L Creatinine (0.66-1.25) mg/dL Glucose (74-99) mg/dL POC Glucose (mg/dL) 131 H 122 H 115 H (70-110) mg/dL Calcium (8.4-10.2) mg/dL Magnesium (1.6-2.3) mg/dL Total Protein (6.3-8.2) g/dL Albumin (3.5-5.0) g/dL Arterial Blood Glucose (75-99) mg/dL Crossmatch 05/15/23 05/15/23 05/15/23 Range/Units 05:08 05:08 06:48 WBC 12.6 H (3.8-10.6) k/uL RBC 3.40 L (4.30-5.90) m/uL Hgb 9.8 L D (13.0-17.5) gm/dL Hct 27.5 L (39.0-53.0) % Plt Count 113 L (150-450) k/uL Neutrophils # 10.5 H (1.3-7.7) k/uL Lymphocytes # (1.0-4.8) k/uL INR (<1.2) ABG pH (7.35-7.45) ABG pCO2 (35-45) mmHg ABG pO2 (83-108) mmHg ABG HCO3 (21-25) mmol/L ABG Total CO2 (19-24) mmol/L ABG O2 Saturation (94-97) % ABG Hematocrit (34.0-46.0) % ABG Ionized Calcium (4.5-5.3) mg/dL ABG Glucose (75-99) mg/dL Hemoglobin (13.0-17.5) gm/dL Chloride 108 H (98-107) mmol/L Creatinine (0.66-1.25) mg/dL Glucose (74-99) mg/dL POC Glucose (mg/dL) 125 H (70-110) mg/dL Calcium 7.7 L (8.4-10.2) mg/dL Magnesium (1.6-2.3) mg/dL Total Protein 4.7 L (6.3-8.2) g/dL Albumin 2.8 L (3.5-5.0) g/dL Arterial Blood Glucose (75-99) mg/dL Crossmatch 05/15/23 05/15/23 05/15/23 Range/Units 08:30 10:03 11:14 WBC (3.8-10.6) k/uL RBC (4.30-5.90) m/uL Hgb (13.0-17.5) gm/dL Hct (39.0-53.0) % Plt Count (150-450) k/uL Neutrophils # (1.3-7.7) k/uL Lymphocytes # (1.0-4.8) k/uL INR (<1.2) ABG pH (7.35-7.45) ABG pCO2 (35-45) mmHg ABG pO2 (83-108) mmHg ABG HCO3 (21-25) mmol/L ABG Total CO2 (19-24) mmol/L ABG O2 Saturation (94-97) % ABG Hematocrit (34.0-46.0) % ABG Ionized Calcium (4.5-5.3) mg/dL ABG Glucose (75-99) mg/dL Hemoglobin (13.0-17.5) gm/dL Chloride (98-107) mmol/L Creatinine (0.66-1.25) mg/dL Glucose (74-99) mg/dL POC Glucose (mg/dL) 158 H 157 H 148 H (70-110) mg/dL Calcium (8.4-10.2) mg/dL Magnesium (1.6-2.3) mg/dL Total Protein (6.3-8.2) g/dL Albumin (3.5-5.0) g/dL Arterial Blood Glucose (75-99) mg/dL Crossmatch Assessment and Plan Assessment: Impression: Coronary artery disease, status post coronary artery bypass grafting x 5 with a PELAYO to the diagonal 2 to the LAD, left radial to the OM1 to the Diag 1, saphenous vein graft to the RCA. Postoperative day #1 Type 2 diabetes Dyslipidemia Lifelong nonsmoker Recommendation: Continue incentive spirometry Early ambulation Maximize medical therapy including aspirin statins and Plavix and beta blockers Discontinue unnecessary catheters, and lines. Continue insulin Continue GI and DVT prophylaxis We'll continue to follow Time with Patient: Less than 30
[2023-05-15 12:53] LABS: Glucose,Whole Blood 135 mg/dL (70-110)
--- NOTE | 2023-05-15 13:14 | P.PN ---
Subjective Progress Note Date: 05/15/23 Principal diagnosis: Multivessel coronary artery disease. Past medical history significant for type 2 diabetes mellitus, hyperlipidemia and is a lifetime nonsmoker. POD #1 coronary artery bypass grafting 5 vessels with left internal mammary artery as a sequential to the diagonal coronary artery and left anterior descending coronary artery, left radial artery as a sequential to the diagonal #1 coronary artery and to the obtuse marginal #1 coronary artery, and a reverse saphenous vein graft to the right coronary artery. Endoscopic harvesting of the left radial artery and left greater saphenous vein, exclusion of the left atrial appendage using a 35 mm Atriclip, intraoperative epi-aortic ultrasound, graft flow measurements using the Ek[employer] Bionicsstim flowmeter system, and intraoperative transesophageal echocardiogram performed by anesthesia. Postoperative acute blood loss anemia, expected given hemodilution and cardiopulmonary bypass. The patient was seen and examined in follow-up today 05/15/2023 at his bedside in the intensive care unit. Currently he is sitting up to the bedside chair, is awake, alert, oriented 3 and is in no acute distress. He denies any complaints of shortness of breath, although is complaining of some pain to his chest tube insertion sites with taking a deep breath currently rating his pain 9 out of 10 on the pain scale. He was successfully extubated at 6:55 PM last evening, is currently on 2 L nasal cannula oxygen and his oxygen saturations are 95%. He is achieving 500 mL on his incentive spirometry with encouragement. He remains h emodynamically stable and is currently on no inotropic or pressor support. Right IJ cordis remains in place with current hemodynamic showing a cardiac output 6.3, cardiac index 3.2, PA pressures 26/10 and CVP 3 mmHg. Bedside telemetry showing sinus tachycardia heart rate 105 BPM. Mediastinal and left pleural chest tubes remain in place to low continuous wall suction -20 cm H2O. No air leak is present. Draining thin serosanguineous drainage. Chest x-ray and laboratory results reviewed. Objective - Vital Signs Vital signs: Vital Signs Temp 99.7 F H 05/15/23 08:00 Pulse 86 05/15/23 11:15 Resp 22 05/15/23 11:15 BP 83/48 05/15/23 09:00 Pulse Ox 99 05/15/23 11:15 FiO2 50 05/14/23 17:38 Intake & Output 08/05/15/23 05/15/23 18:59 06:59 18:59 Intake Total 912.823 3071.725 879.200 Output Total 2975 690 150 Balance -2071.348 1620.725 729.200 Weight 92 kg 92 kg Intake: IV 870 1808 639 ACETAMINOPHEN IV (For NPO 400 100 ) 1,000 mg In Empty Bag 1 bag @ 400 mls/hr IVPB Q6HR JEAN PAUL Rx#:[id number] Albumin Human 5% 250 ml 750 300 In Empty Bag 1 bag @ 250 mls/hr IVPB Q1HR PRN Rx#: [id number] CO/CI 80 200 20 LR 200 600 150 Pressure bags 36 108 39 Sodium Chloride 0.9% 1, 80 000 ml @ 50 mls/hr IV . Q20H JEAN PAUL Rx#:[id number] ceFAZolin 2 gm In Sodium 100 50 50 Chloride 0.9% 50 ml @ 100 mls/hr IVPB Q8HR JEAN PAUL Rx# :[id number] Intake, IV Titration 33.652 32.725 20.200 Amount Insulin Regular 100 unit 5.143 32.725 20.200 In Sodium Chloride 0.9% 100 ml @ Per Protocol IV .Q0M JEAN PAUL Rx#:[id number] propofoL 1,000 mg In 28.509 Empty Bag 1 bag @ Titrate IV .Q0M JEAN PAUL Rx#: [id number] Oral 470 220 Output: Chest Tube Drainage 380 200 30 Chest Tube Left 200 55 15 Chest Tube Right Pleural/ 180 145 15 Mediastinal Drainage 20 45 L. leg FARHAT 10 40 L. wrist FARHAT 10 5 Urine 775 445 120 Estimated Blood Loss 1800 Other: Voiding Method Indwelling Catheter Indwelling Catheter Indwelling Catheter ABP, PAP, CO, CI - Last Documented Arterial Blood Pressure 94/38 Pulmonary Artery Pressure 28/15 Cardiac Output 5.8 Cardiac Index 2.9 - Exam CONSTITUTIONAL: Sitting up to the bedside chair in the intensive care unit, appears comfortable, cooperative, no apparent acute distress. HEENT: Neck is supple, no JVD, no lymphadenopathy. Right IJ Cordis and Taylor-Moni z catheter in place and functioning. RESPIRATORY: Lungs sounds essentially clear throughout, diminished to his bilateral bases. Respirations are symmetrical and nonlabored. Currently on 2 L nasal cannula with oxygen saturations 95%. Able to achieve 500 mL on their incentive spirometry. Strong cough. CARDIOVASCULAR: Regular rhythm and rate. S1 and S2 present, negative for S3, gallop or murmur. Sternum is stable. Palpable peripheral pulses bilaterally, trace edema to his bilateral lower extremities. No calf pain or tenderness noted. Heart hugger in place with patient demonstrating appropriate use. Knee- high CHARLES hose and sequential compression devices in place to his bilateral lower extremities. GASTROINTESTINAL: Abdomen soft, nontender, nondistended. Hypoactive bowel sounds present 4 quadrants. Tolerating diet. Passing flatus. No guarding or rigidity. GENITOURINARY: Pena present draining clear, yellow urine. 270 mL of urine output in the last 8 hours. INTEGUMENTARY: Skin is warm and dry with no evidence of clubbing or cyanosis. Midline sternal incision clean dry and well approximated, covered with dry intact dressing. Left lower extremity EVH sites well approximated without redness or drainage. Left arm radial artery harvest sites clean, dry and approximated. No drainage or redness is present. NEUROLOGIC: Cranial nerves II through XII intact. No focal deficits. MUSKULOSKELETAL: Able to move all extremities, strength equal bilaterally. PSYCHIATRIC: Alert and oriented to person place and time, appropriate affect, intact judgment and insight. INVASIVE LINES AND TUBES: Mediastinal/left pleural chest tubes present and connected to low continuous wall suction, no air leaks present. Mediastinal tube with 85 mL of thin serosanguineous drainage overnight, 330 mL output in the last 24 hours. Left pleural chest tube with 45 mL of thin serosanguineous drainage overnight, 250 mL output in the last 24 hours. Atrial and ventricular epicardial pacemaker wires present, connected to generator, VVI backup rate 50 bpm. Right internal jugular Taylor/Cordis, right radial arterial line present. Last CO 6.3, CI 3.2, PA 26/10 and CVP 3 mmHg. Left arm FARHAT drain in place with scant thin serosanguineous drainage, 15 mL output in the last 8 hours. Left lo wer extremity FARHAT drain in place with scant thin serosanguineous drainage with 40 mL output in the last 8 hours. - Allied health notes Allied health notes reviewed: nursing - Labs CBC & Chem 7: 05/15/23 05:08 05/15/23 05:08 Labs: Abnormal Lab Results - Last 24 Hours (Table) 05/09/23 05/14/23 05/14/23 Range/Units 12:51 08:45 15:17 WBC 14.6 H (3.8-10.6) k/uL RBC 4.06 L (4.30-5.90) m/uL Hgb 11.5 L (13.0-17.5) gm/dL Hct 32.8 L (39.0-53.0) % Plt Count 112 L (150-450) k/uL Neutrophils # 12.5 H (1.3-7.7) k/uL Lymphocytes # (1.0-4.8) k/uL INR (<1.2) ABG pH (7.35-7.45) ABG pCO2 (35-45) mmHg ABG pO2 >420 H (83-108) mmHg ABG HCO3 27 H (21-25) mmol/L ABG Total CO2 29 H (19-24) mmol/L ABG O2 Saturation 99.7 H (94-97) % ABG Hematocrit 27 L (34.0-46.0) % ABG Ionized Calcium 4.2 L (4.5-5.3) mg/dL ABG Glucose 127 H (75-99) mg/dL Hemoglobin 8.7 L (13.0-17.5) gm/dL Chloride (98-107) mmol/L Creatinine (0.66-1.25) mg/dL Glucose (74-99) mg/dL POC Glucose (mg/dL) (70-110) mg/dL Calcium (8.4-10.2) mg/dL Magnesium (1.6-2.3) mg/dL Total Protein (6.3-8.2) g/dL Albumin (3.5-5.0) g/dL Arterial Blood Glucose 127 H (75-99) mg/dL Crossmatch See Detail 05/14/23 05/14/23 05/14/23 Range/Units 15:17 15:17 15:24 WBC (3.8-10.6) k/uL RBC (4.30-5.90) m/uL Hgb (13.0-17.5) gm/dL Hct (39.0-53.0) % Plt Count (150-450) k/uL Neutrophils # (1.3-7.7) k/uL Lymphocytes # (1.0-4.8) k/uL INR 1.2 H (<1.2) ABG pH (7.35-7.45) ABG pCO2 (35-45) mmHg ABG pO2 (83-108) mmHg ABG HCO3 (21-25) mmol/L ABG Total CO2 (19-24) mmol/L ABG O2 Saturation (94-97) % ABG Hematocrit (34.0-46.0) % ABG Ionized Calcium (4.5-5.3) mg/dL ABG Glucose (75-99) mg/dL Hemoglobin (13.0-17.5) gm/dL Chloride 110 H (98-107) mmol/L Creatinine 0.63 L (0.66-1.25) mg/dL Glucose 116 H (74-99) mg/dL POC Glucose (mg/dL) 126 H (70-110) mg/dL Calcium 8.1 L (8.4-10.2) mg/dL Magnesium 2.8 H (1.6-2.3) mg/dL Total Protein 4.7 L (6.3-8.2) g/dL Albumin 2.8 L (3.5-5.0) g/dL Arterial Blood Glucose (75-99) mg/dL Crossmatch 05/14/23 05/14/23 05/14/23 Range/Units 15:50 15:59 17:05 WBC (3.8-10.6) k/uL RBC (4.30-5.90) m/uL Hgb (13.0-17.5) gm/dL Hct (39.0-53.0) % Plt Count (150-450) k/uL Neutrophils # (1.3-7.7) k/uL Lymphocytes # (1.0-4.8) k/uL INR (<1.2) ABG pH (7.35-7.45) ABG pCO2 (35-45) mmHg ABG pO2 313 H (83-108) mmHg ABG HCO3 26 H (21-25) mmol/L ABG Total CO2 28 H (19-24) mmol/L ABG O2 Saturation 99.3 H (94-97) % ABG Hematocrit (34.0-46.0) % ABG Ionized Calcium (4.5-5.3) mg/dL ABG Glucose (75-99) mg/dL Hemoglobin (13.0-17.5) gm/dL Chloride (98-107) mmol/L Creatinine (0.66-1.25) mg/dL Glucose (74-99) mg/dL POC Glucose (mg/dL) 138 H 156 H (70-110) mg/dL Calcium (8.4-10.2) mg/dL Magnesium (1.6-2.3) mg/dL Total Protein (6.3-8.2) g/dL Albumin (3.5-5.0) g/dL Arterial Blood Glucose (75-99) mg/dL Crossmatch 05/14/23 05/14/23 05/14/23 Range/Units 17:15 17:53 17:56 WBC 16.5 H (3.8-10.6) k/uL RBC 4.09 L (4.30-5.90) m/uL Hgb 11.9 L (13.0-17.5) gm/dL Hct 33.3 L (39.0-53.0) % Plt Count 107 L (150-450) k/uL Neutrophils # 14.1 H (1.3-7.7) k/uL Lymphocytes # (1.0-4.8) k/uL INR (<1.2) ABG pH 7.31 L (7.35-7.45) ABG pCO2 47 H (35-45) mmHg ABG pO2 158 H (83-108) mmHg ABG HCO3 (21-25) mmol/L ABG Total CO2 25 H (19-24) mmol/L ABG O2 Saturation 98.7 H (94-97) % ABG Hematocrit (34.0-46.0) % ABG Ionized Calcium (4.5-5.3) mg/dL ABG Glucose (75-99) mg/dL Hemoglobin (13.0-17.5) gm/dL Chloride (98-107) mmol/L Creatinine (0.66-1.25) mg/dL Glucose (74-99) mg/dL POC Glucose (mg/dL) 163 H (70-110) mg/dL Calcium (8.4-10.2) mg/dL Magnesium (1.6-2.3) mg/dL Total Protein (6.3-8.2) g/dL Albumin (3.5-5.0) g/dL Arterial Blood Glucose (75-99) mg/dL Crossmatch 05/14/23 05/14/23 05/14/23 Range/Units 18:47 18:48 19:38 WBC (3.8-10.6) k/uL RBC (4.30-5.90) m/uL Hgb (13.0-17.5) gm/dL Hct (39.0-53.0) % Plt Count (150-450) k/uL Neutrophils # (1.3-7.7) k/uL Lymphocytes # (1.0-4.8) k/uL INR (<1.2) ABG pH 7.34 L (7.35-7.45) ABG pCO2 (35-45) mmHg ABG pO2 177 H (83-108) mmHg ABG HCO3 (21-25) mmol/L ABG Total CO2 25 H (19-24) mmol/L ABG O2 Saturation 98.9 H (94-97) % ABG Hematocrit (34.0-46.0) % ABG Ionized Calcium (4.5-5.3) mg/dL ABG Glucose (75-99) mg/dL Hemoglobin (13.0-17.5) gm/dL Chloride (98-107) mmol/L Creatinine (0.66-1.25) mg/dL Glucose (74-99) mg/dL POC Glucose (mg/dL) 164 H 161 H (70-110) mg/dL Calcium (8.4-10.2) mg/dL Magnesium (1.6-2.3) mg/dL Total Protein (6.3-8.2) g/dL Albumin (3.5-5.0) g/dL Arterial Blood Glucose (75-99) mg/dL Crossmatch 05/14/23 05/14/23 05/14/23 Range/Units 20:03 21:13 22:07 WBC 15.6 H (3.8-10.6) k/uL RBC 3.93 L (4.30-5.90) m/uL Hgb 11.5 L (13.0-17.5) gm/dL Hct 31.9 L (39.0-53.0) % Plt Count 112 L (150-450) k/uL Neutrophils # 14.2 H (1.3-7.7) k/uL Lymphocytes # 0.6 L (1.0-4.8) k/uL INR (<1.2) ABG pH (7.35-7.45) ABG pCO2 (35-45) mmHg ABG pO2 (83-108) mmHg ABG HCO3 (21-25) mmol/L ABG Total CO2 (19-24) mmol/L ABG O2 Saturation (94-97) % ABG Hematocrit (34.0-46.0) % ABG Ionized Calcium (4.5-5.3) mg/dL ABG Glucose (75-99) mg/dL Hemoglobin (13.0-17.5) gm/dL Chloride (98-107) mmol/L Creatinine (0.66-1.25) mg/dL Glucose (74-99) mg/dL POC Glucose (mg/dL) 143 H 139 H (70-110) mg/dL Calcium (8.4-10.2) mg/dL Magnesium (1.6-2.3) mg/dL Total Protein (6.3-8.2) g/dL Albumin (3.5-5.0) g/dL Arterial Blood Glucose (75-99) mg/dL Crossmatch 05/14/23 05/15/23 05/15/23 Range/Units 22:59 00:07 01:13 WBC (3.8-10.6) k/uL RBC (4.30-5.90) m/uL Hgb (13.0-17.5) gm/dL Hct (39.0-53.0) % Plt Count (150-450) k/uL Neutrophils # (1.3-7.7) k/uL Lymphocytes # (1.0-4.8) k/uL INR (<1.2) ABG pH (7.35-7.45) ABG pCO2 (35-45) mmHg ABG pO2 (83-108) mmHg ABG HCO3 (21-25) mmol/L ABG Total CO2 (19-24) mmol/L ABG O2 Saturation (94-97) % ABG Hematocrit (34.0-46.0) % ABG Ionized Calcium (4.5-5.3) mg/dL ABG Glucose (75-99) mg/dL Hemoglobin (13.0-17.5) gm/dL Chloride (98-107) mmol/L Creatinine (0.66-1.25) mg/dL Glucose (74-99) mg/dL POC Glucose (mg/dL) 144 H 141 H 135 H (70-110) mg/dL Calcium (8.4-10.2) mg/dL Magnesium (1.6-2.3) mg/dL Total Protein (6.3-8.2) g/dL Albumin (3.5-5.0) g/dL Arterial Blood Glucose (75-99) mg/dL Crossmatch 05/15/23 05/15/23 05/15/23 Range/Units 02:04 03:00 04:08 WBC (3.8-10.6) k/uL RBC (4.30-5.90) m/uL Hgb (13.0-17.5) gm/dL Hct (39.0-53.0) % Plt Count (150-450) k/uL Neutrophils # (1.3-7.7) k/uL Lymphocytes # (1.0-4.8) k/uL INR (<1.2) ABG pH (7.35-7.45) ABG pCO2 (35-45) mmHg ABG pO2 (83-108) mmHg ABG HCO3 (21-25) mmol/L ABG Total CO2 (19-24) mmol/L ABG O2 Saturation (94-97) % ABG Hematocrit (34.0-46.0) % ABG Ionized Calcium (4.5-5.3) mg/dL ABG Glucose (75-99) mg/dL Hemoglobin (13.0-17.5) gm/dL Chloride (98-107) mmol/L Creatinine (0.66-1.25) mg/dL Glucose (74-99) mg/dL POC Glucose (mg/dL) 131 H 122 H 115 H (70-110) mg/dL Calcium (8.4-10.2) mg/dL Magnesium (1.6-2.3) mg/dL Total Protein (6.3-8.2) g/dL Albumin (3.5-5.0) g/dL Arterial Blood Glucose (75-99) mg/dL Crossmatch 05/15/23 05/15/2323 Range/Units 05:08 05:08 06:48 WBC 12.6 H (3.8-10.6) k/uL RBC 3.40 L (4.30-5.90) m/uL Hgb 9.8 L D (13.0-17.5) gm/dL Hct 27.5 L (39.0-53.0) % Plt Count 113 L (150-450) k/uL Neutrophils # 10.5 H (1.3-7.7) k/uL Lymphocytes # (1.0-4.8) k/uL INR (<1.2) ABG pH (7.35-7.45) ABG pCO2 (35-45) mmHg ABG pO2 (83-108) mmHg ABG HCO3 (21-25) mmol/L ABG Total CO2 (19-24) mmol/L ABG O2 Saturation (94-97) % ABG Hematocrit (34.0-46.0) % ABG Ionized Calcium (4.5-5.3) mg/dL ABG Glucose (75-99) mg/dL Hemoglobin (13.0-17.5) gm/dL Chloride 108 H (98-107) mmol/L Creatinine (0.66-1.25) mg/dL Glucose (74-99) mg/dL POC Glucose (mg/dL) 125 H (70-110) mg/dL Calcium 7.7 L (8.4-10.2) mg/dL Magnesium (1.6-2.3) mg/dL Total Protein 4.7 L (6.3-8.2) g/dL Albumin 2.8 L (3.5-5.0) g/dL Arterial Blood Glucose (75-99) mg/dL Crossmatch 05/15/23 05/15/23 05/15/23 Range/Units 08:30 10:03 11:14 WBC (3.8-10.6) k/uL RBC (4.30-5.90) m/uL Hgb (13.0-17.5) gm/dL Hct (39.0-53.0) % Plt Count (150-450) k/uL Neutrophils # (1.3-7.7) k/uL Lymphocytes # (1.0-4.8) k/uL INR (<1.2) ABG pH (7.35-7.45) ABG pCO2 (35-45) mmHg ABG pO2 (83-108) mmHg ABG HCO3 (21-25) mmol/L ABG Total CO2 (19-24) mmol/L ABG O2 Saturation (94-97) % ABG Hematocrit (34.0-46.0) % ABG Ionized Calcium (4.5-5.3) mg/dL ABG Glucose (75-99) mg/dL Hemoglobin (13.0-17.5) gm/dL Chloride (98-107) mmol/L Creatinine (0.66-1.25) mg/dL Glucose (74-99) mg/dL POC Glucose (mg/dL) 158 H 157 H 148 H (70-110) mg/dL Calcium (8.4-10.2) mg/dL Magnesium (1.6-2.3) mg/dL Total Protein (6.3-8.2) g/dL Albumin (3.5-5.0) g/dL Arterial Blood Glucose (75-99) mg/dL Crossmatch 05/15/23 Range/Units 12:52 WBC (3.8-10.6) k/uL RBC (4.30-5.90) m/uL Hgb (13.0-17.5) gm/dL Hct (39.0-53.0) % Plt Count (150-450) k/uL Neutrophils # (1.3-7.7) k/uL Lymphocytes # (1.0-4.8) k/uL INR (<1.2) ABG pH (7.35-7.45) ABG pCO2 (35-45) mmHg ABG pO2 (83-108) mmHg ABG HCO3 (21-25) mmol/L ABG Total CO2 (19-24) mmol/L ABG O2 Saturation (94-97) % ABG Hematocrit (34.0-46.0) % ABG Ionized Calcium (4.5-5.3) mg/dL ABG Glucose (75-99) mg/dL Hemoglobin (13.0-17.5) gm/dL Chloride (98-107) mmol/L Creatinine (0.66-1.25) mg/dL Glucose (74-99) mg/dL POC Glucose (mg/dL) 135 H (70-110) mg/dL Calcium (8.4-10.2) mg/dL Magnesium (1.6-2.3) mg/dL Total Protein (6.3-8.2) g/dL Albumin (3.5-5.0) g/dL Arterial Blood Glucose (75-99) mg/dL Crossmatch - Imaging and Cardiology Chest x-ray: report reviewed, image reviewed Assessment and Plan Assessment: Triple-vessel coronary artery disease, status post coronary artery bypass graft ing surgery 5 vessels Dyspnea on exertion, secondary to above Hyperlipidemia, cholesterol 330, triglycerides 184, LDL 242, recently started on Crestor Type 2 diabetes, hemoglobin A1c 9.7%, recently started on Mounjaro Lifetime nonsmoker Postoperative acute blood loss anemia, expected given hemodilution and cardiopulmonary bypass Plan: Continue to maximize medical therapy with aspirin, Plavix, statin, beta zhou. Will increase beta zhou therapy as tolerated. Discontinue IV nitroglycerin. Will start oral calcium channel zhou for radial artery spasm prophylaxis when blood pressure is able to tolerate. Wean O2 as tolerated. Encourage incentive spirometry use 10 times every hour while awake. Bronchodilators per pulmonology. Increase activity, ambulate as tolerated. PT/OT/cardiac rehab consulted. Will monitor daily labs and x-rays. Electrolyte replacement per protocol. GI/DVT prophylaxis. Pain control with current medication regimen. Toradol added Insulin management per internal medicine. Patient is diabetic, preoperative hemoglobin A1c 9.6%. Needs tight blood sugar control to promote healing and prevent infection Discontinue Taylor. Connect Cordis to continuous CVP monitoring. Continue mediastinal/left pleural chest tubes for another 24 hours. Will discontinue FARHAT drain to his left wrist, continue FARHAT drain to his left lower leg. Continue Pena catheter for another 24 hours for strict accurate intake and output. Daily weights. More recommendations to follow based on patient's clinical course. Time with Patient: Greater than 30
--- NOTE | 2023-05-15 13:18 | P.CONS ---
History of Present Illness - Reason for Consult Consult date: 05/15/23 Medical management - History of Present Illness History of present illness; patient is a 57-year-old gentleman with past medical history significant for hyperlipidemia, diabetes mellitus, lifelong nonsmoker who presented to the hospital for elective CABG on 05/14. Patient underwent cardiac catheterization on 05/09/2023 and was found to have significant triple- vessel coronary artery disease and was recommended surgical revascularization. Patient underwent CABG on 05/14. Postoperatively patient was monitored in the ICU, initially was intubated and was on mechanical ventilation. Patient was extubated yesterday. Medicine team was consulted for medical management REVIEW OF SYSTEMS: CONSTITUTIONAL: No fever, no malaise, no fatigue. HEENT: No recent visual problems or hearing problems. Denied any sore throat. CARDIOVASCULAR: Complaining of pain at site of surgery. Denies any palpitations PULMONARY: No shortness of breath, no cough, no hemoptysis. GASTROINTESTINAL: No diarrhea, no nausea, no vomiting, no abdominal pain. NEUROLOGICAL: No headaches, no weakness, no numbness. HEMATOLOGICAL: Denies any bleeding or petechiae. GENITOURINARY: Denies any burning micturition, frequency, or urgency. MUSCULOSKELETAL/RHEUMATOLOGICAL: Denies any joint pain, swelling, or any muscle pain. ENDOCRINE: Denies any polyuria or polydipsia. The rest of the 14-point review of systems is negative. PHYSICAL EXAMINATION: GENERAL: The patient is alert and oriented x3, not in any acute distress. Well developed, well nourished. HEENT: Pupils are round and equally reacting to light. EOMI. No scleral icterus. No conjunctival pallor. Normocephalic, atraumatic. No pharyngeal erythema. No thyromegaly. CARDIOVASCULAR: S1 and S2 present. No murmurs, rubs, or gallops. PULMONARY: Diminished breath sounds at bases bilaterally, chest tubes in place ABDOMEN: Soft, nontender, nondistended, normoactive bowel sounds. No palpable organomegaly. MUSCULOSKELETAL: No joint swelling or deformity. EXTREMITIES: No cyanosis, clubbing, or pedal edema. NEUROLOGICAL: Gross neurological examination did not reveal any focal deficits. SKIN: No rashes. Assessment and plan Coronary artery disease, status post CABG with a PELAYO to the diagonal 2 to the LAD, left radial to the OM1 to the Diag 1, saphenous vein graft to the RCA. Diabetes mellitus Hyperlipidemia Lifelong nonsmoker Monitor vital signs Monitor CBC Monitor CMP Continue telemetry monitoring Aggressive bronchopulmonary hygiene Encourage use of I-S Continue chest tube management per cardiac surgery Continue postop care per cardiac surgery Critical care following Labs and medication were reviewed.. Continue same treatment. Continue with symptomatic treatment. Resume home medication. Monitor labs and vitals. DVT and GI prophylaxis. Further recommendations as per clinical course of the patient Dictation was produced using [employer] dictation software. please excuse any grammatical, word or spelling errors. Past Medical History Past Medical History: Coronary Artery Disease (CAD), Diabetes Mellitus, Hyperlipidemia Additional Past Medical History / Comment(s): hx of covid x2, remains u nvaccinated History of Any Multi-Drug Resistant Organisms: None Reported Past Surgical History: Heart Catheterization Additional Past Surgical History / Comment(s): right cataract, wisdom teeth. Past Anesthesia/Blood Transfusion Reactions: No Reported Reaction Smoking Status: Never smoker - Past Family History Mother Family Medical History: Congestive Heart Failure (CHF), Diabetes Mellitus Additional Family Medical History / Comment(s): Mom Father Family Medical History: Hypertension Medications and Allergies Home Medications Medication Instructions Recorded Confirmed Type Aspirin [Adult Low Dose Aspirin EC] 81 mg PO DAILY 05/06/23 05/14/23 History Metoprolol Tartrate [Lopressor] 25 mg PO BID 05/06/23 05/14/23 History Rosuvastatin Calcium [Crestor] 40 mg PO DAILY 05/06/23 05/14/23 History Tirzepatide [Mounjaro] 2.5 mg SQ SA 05/06/23 05/14/23 History Allergies Allergy/AdvReac Type Severity Reaction Status Date / Time No Known Allergies Allergy Verified 05/14/23 06:08 Physical Exam Vitals: Vital Signs Temp Pulse Resp BP Pulse Ox FiO2 05/15/23 10:00 90 24 97 05/15/23 09:45 105 H 31 H 95 05/15/23 09:30 101 H 27 H 95 05/15/23 09:15 106 H 31 H 93 L 05/15/23 09:01 98 05/15/23 09:00 98 25 H 83/48 98 05/15/23 08:45 98 31 H 83/48 94 L 05/15/23 08:44 99 05/15/23 08:30 96 35 H 95 05/15/23 08:15 96 30 H 96 05/15/23 08:00 99.7 F H 99 29 H 95 05/15/23 07:45 109 H 22 95 05/15/23 07:30 105 H 32 H 97 05/15/23 07:15 99 34 H 96 05/15/23 07:00 98 21 95 05/15/23 06:45 98 31 H 83/48 94 L 05/15/23 06:30 106 H 40 H 84/52 95 05/15/23 06:15 104 H 30 H 96 05/15/23 06:00 91 30 H 97 05/15/23 05:45 101 H 30 H 94 L 05/15/23 05:30 92 25 H 96 05/15/23 05:15 87 23 96 05/15/23 05:00 92 23 96 05/15/23 04:45 92 19 94 L 05/15/23 04:30 92 22 94 L 05/15/23 04:15 92 23 95 05/15/23 04:00 99.9 F H 93 25 H 96 05/15/23 03:45 96 24 95 05/15/23 03:30 95 22 95 05/15/23 03:15 96 22 95 05/15/23 03:00 98 23 95 05/15/23 02:45 95 18 95 05/15/23 02:30 93 18 95 05/15/23 02:15 93 22 95 05/15/23 02:00 96 18 95 05/15/23 01:45 98 16 94 L 05/15/23 01:30 96 17 94 L 05/15/23 01:15 101 H 23 95 05/15/23 01:00 98 16 94 L 05/15/23 00:45 98 18 101/58 95 05/15/23 00:30 99 25 H 101/58 95 05/15/23 00:15 104 H 24 97 05/15/23 00:00 99.9 F H 98 32 H 101/58 98 05/14/23 23:45 96 24 98 05/14/23 23:30 99 19 95 05/14/23 23:15 101 H 25 H 96 05/14/23 23:11 108 H 21 97 05/14/23 23:00 97 23 97 05/14/23 22:45 101 H 17 96 05/14/23 22:30 103 H 18 95 05/14/23 22:15 105 H 17 95 05/14/23 22:00 101 H 15 95 05/14/23 21:45 102 H 17 96 05/14/23 21:30 103 H 19 96 05/14/23 21:16 94 05/14/23 21:15 106 H 22 100 05/14/23 21:00 96 19 100 05/14/23 20:58 96 05/14/23 20:45 106 H 20 97 05/14/23 20:30 100 14 98 05/14/23 20:15 101 H 15 99 05/14/23 20:00 99.5 F 101 H 19 89/57 99 05/14/23 19:45 101 H 17 100 05/14/23 19:30 101 H 23 100 05/14/23 19:15 107 H 11 L 100 05/14/23 19:00 112 H 13 99 05/14/23 18:45 105 H 17 100 05/14/23 18:30 104 H 16 100 05/14/23 18:15 101 H 17 100 05/14/23 18:00 97 20 100 05/14/23 17:45 100 20 98 05/14/23 17:38 50 05/14/23 17:30 98 15 100 05/14/23 17:15 96 15 100 05/14/23 17:00 98.6 F 104 H 19 99 40 05/14/23 16:56 94 05/14/23 16:47 92 05/14/23 16:45 92 14 100 05/14/23 16:30 94 17 100 05/14/23 16:20 94 17 100 05/14/23 16:10 89 14 100 05/14/23 16:00 87 14 99 50 05/14/23 15:55 50 05/14/23 15:50 87 14 99 05/14/23 15:40 86 14 100 05/14/23 15:30 89 14 99 100 05/14/23 15:20 98.1 F 82 14 99 100 05/14/23 15:19 84 15 05/14/23 15:15 100 Intake and Output 05/14/23 05/15/23 05/15/23 22:59 06:59 14:59 Intake Total 7768.933 8921.564 523.767 Output Total 895 420 110 Balance 606.987 4368.564 413.767 Intake: IV 1382 1242 297 ACETAMINOPHEN IV (For NPO 400 100 ) 1,000 mg In Empty Bag 1 bag @ 400 mls/hr IVPB Q6HR [facility] Rx#:[id number] Albumin Human 5% 250 ml 250 500 50 In Empty Bag 1 bag @ 250 mls/hr IVPB Q1HR PRN Rx#: [id number] CO/CI 160 120 20 LR 400 400 150 Pressure bags 72 72 27 ceFAZolin 2 gm In Sodium 100 50 50 Chloride 0.9% 50 ml @ 100 mls/hr IVPB Q8HR [facility] Rx# :[id number] Intake, IV Titration 44.813 21.564 6.767 Amount Insulin Regular 100 unit 16.304 21.564 6.767 In Sodium Chloride 0.9% 100 ml @ Per Protocol IV .Q0M [facility] Rx#:[id number] propofoL 1,000 mg In 28.509 Empty Bag 1 bag @ Titrate IV .Q0M [facility] Rx#: [id number] Oral 250 220 220 Output: Chest Tube Drainage 450 130 30 Chest Tube Left 210 45 15 Chest Tube Right Pleural/ 240 85 15 Mediastinal Drainage 20 45 L. leg FARHAT 10 40 L. wrist FARHAT 10 5 Urine 425 245 80 Other: Voiding Method Indwelling Catheter Indwelling Catheter Indwelling Catheter Weight 92 kg ABP, PAP, CO, CI - Last 8 Hours Arterial Blood Pressure 81/34 Arterial Blood Pressure 88/42 Arterial Blood Pressure 93/42 Arterial Blood Pressure 95/44 Arterial Blood Pressure 92/45 Arterial Blood Pressure 90/48 Arterial Blood Pressure 100/51 Arterial Blood Pressure 76/41 Arterial Blood Pressure 82/43 Arterial Blood Pressure 92/47 Arterial Blood Pressure 96/46 Arterial Blood Pressure 94/42 Arterial Blood Pressure 94/42 Arterial Blood Pressure 77/39 Arterial Blood Pressure 83/51 Arterial Blood Pressure 84/45 Arterial Blood Pressure 102/45 Arterial Blood Pressure 112/52 Arterial Blood Pressure 101/48 Arterial Blood Pressure 98/49 Arterial Blood Pressure 99/49 Arterial Blood Pressure 97/49 Arterial Blood Pressure 95/49 Arterial Blood Pressure 104/51 Arterial Blood Pressure 103/50 Arterial Blood Pressure 106/52 Arterial Blood Pressure 99/48 Arterial Blood Pressure 99/47 Arterial Blood Pressure 97/46 Arterial Blood Pressure 96/46 Arterial Blood Pressure 100/47 Pulmonary Artery Pressure 28/15 Pulmonary Artery Pressure 22/9 Pulmonary Artery Pressure 22/8 Pulmonary Artery Pressure 28/10 Pulmonary Artery Pressure 29/9 Pulmonary Artery Pressure 27/8 Pulmonary Artery Pressure 29/8 Pulmonary Artery Pressure 26/7 Pulmonary Artery Pressure 37/20 Pulmonary Artery Pressure 37/17 Pulmonary Artery Pressure 35/16 Pulmonary Artery Pressure 36/17 Pulmonary Artery Pressure 33/16 Pulmonary Artery Pressure 29/14 Pulmonary Artery Pressure 27/13 Pulmonary Artery Pressure 27/12 Pulmonary Artery Pressure 28/13 Pulmonary Artery Pressure 27/14 Pulmonary Artery Pressure 28/15 Pulmonary Artery Pressure 29/16 Pulmonary Artery Pressure 26/12 Pulmonary Artery Pressure 24/13 Pulmonary Artery Pressure 24/11 Pulmonary Artery Pressure 24/10 Pulmonary Artery Pressure 24/10 Pulmonary Artery Pressure 25/11 Cardiac Output 5.8 Cardiac Output 5.8 Cardiac Output 5.8 Cardiac Output 5.8 Cardiac Output 6.3 Cardiac Output 6.2 Cardiac Index 2.9 Cardiac Index 2.9 Cardiac Index 2.9 Cardiac Index 2.9 Cardiac Index 3.2 Cardiac Index 3.1 Results CBC & Chem 7: 05/15/23 05:08 05/15/23 05:08 Labs: Abnormal Lab Results - Last 24 Hours (Table) 05/09/23 05/14/23 05/14/23 Range/Units 12:51 08:45 15:17 WBC 14.6 H (3.8-10.6) k/uL RBC 4.06 L (4.30-5.90) m/uL Hgb 11.5 L (13.0-17.5) gm/dL Hct 32.8 L (39.0-53.0) % Plt Count 112 L (150-450) k/uL Neutrophils # 12.5 H (1.3-7.7) k/uL Lymphocytes # (1.0-4.8) k/uL INR (<1.2) ABG pH (7.35-7.45) ABG pCO2 (35-45) mmHg ABG pO2 >420 H (83-108) mmHg ABG HCO3 27 H (21-25) mmol/L ABG Total CO2 29 H (19-24) mmol/L ABG O2 Saturation 99.7 H (94-97) % ABG Hematocrit 27 L (34.0-46.0) % ABG Ionized Calcium 4.2 L (4.5-5.3) mg/dL ABG Glucose 127 H (75-99) mg/dL Hemoglobin 8.7 L (13.0-17.5) gm/dL Chloride (98-107) mmol/L Creatinine (0.66-1.25) mg/dL Glucose (74-99) mg/dL POC Glucose (mg/dL) (70-110) mg/dL Calcium (8.4-10.2) mg/dL Magnesium (1.6-2.3) mg/dL Total Protein (6.3-8.2) g/dL Albumin (3.5-5.0) g/dL Arterial Blood Glucose 127 H (75-99) mg/dL Crossmatch See Detail 05/14/23 05/14/23 05/14/23 Range/Units 15:17 15:17 15:24 WBC (3.8-10.6) k/uL RBC (4.30-5.90) m/uL Hgb (13.0-17.5) gm/dL Hct (39.0-53.0) % Plt Count (150-450) k/uL Neutrophils # (1.3-7.7) k/uL Lymphocytes # (1.0-4.8) k/uL INR 1.2 H (<1.2) ABG pH (7.35-7.45) ABG pCO2 (35-45) mmHg ABG pO2 (83-108) mmHg ABG HCO3 (21-25) mmol/L ABG Total CO2 (19-24) mmol/L ABG O2 Saturation (94-97) % ABG Hematocrit (34.0-46.0) % ABG Ionized Calcium (4.5-5.3) mg/dL ABG Glucose (75-99) mg/dL Hemoglobin (13.0-17.5) gm/dL Chloride 110 H (98-107) mmol/L Creatinine 0.63 L (0.66-1.25) mg/dL Glucose 116 H (74-99) mg/dL POC Glucose (mg/dL) 126 H (70-110) mg/dL Calcium 8.1 L (8.4-10.2) mg/dL Magnesium 2.8 H (1.6-2.3) mg/dL Total Protein 4.7 L (6.3-8.2) g/dL Albumin 2.8 L (3.5-5.0) g/dL Arterial Blood Glucose (75-99) mg/dL Crossmatch 05/14/23 05/14/23 05/14/23 Range/Units 15:50 15:59 17:05 WBC (3.8-10.6) k/uL RBC (4.30-5.90) m/uL Hgb (13.0-17.5) gm/dL Hct (39.0-53.0) % Plt Count (150-450) k/uL Neutrophils # (1.3-7.7) k/uL Lymphocytes # (1.0-4.8) k/uL INR (<1.2) ABG pH (7.35-7.45) ABG pCO2 (35-45) mmHg ABG pO2 313 H (83-108) mmHg ABG HCO3 26 H (21-25) mmol/L ABG Total CO2 28 H (19-24) mmol/L ABG O2 Saturation 99.3 H (94-97) % ABG Hematocrit (34.0-46.0) % ABG Ionized Calcium (4.5-5.3) mg/dL ABG Glucose (75-99) mg/dL Hemoglobin (13.0-17.5) gm/dL Chloride (98-107) mmol/L Creatinine (0.66-1.25) mg/dL Glucose (74-99) mg/dL POC Glucose (mg/dL) 138 H 156 H (70-110) mg/dL Calcium (8.4-10.2) mg/dL Magnesium (1.6-2.3) mg/dL Total Protein (6.3-8.2) g/dL Albumin (3.5-5.0) g/dL Arterial Blood Glucose (75-99) mg/dL Crossmatch 05/14/23 05/14/23 05/14/23 Range/Units 17:15 17:53 17:56 WBC 16.5 H (3.8-10.6) k/uL RBC 4.09 L (4.30-5.90) m/uL Hgb 11.9 L (13.0-17.5) gm/dL Hct 33.3 L (39.0-53.0) % Plt Count 107 L (150-450) k/uL Neutrophils # 14.1 H (1.3-7.7) k/uL Lymphocytes # (1.0-4.8) k/uL INR (<1.2) ABG pH 7.31 L (7.35-7.45) ABG pCO2 47 H (35-45) mmHg ABG pO2 158 H (83-108) mmHg ABG HCO3 (21-25) mmol/L ABG Total CO2 25 H (19-24) mmol/L ABG O2 Saturation 98.7 H (94-97) % ABG Hematocrit (34.0-46.0) % ABG Ionized Calcium (4.5-5.3) mg/dL ABG Glucose (75-99) mg/dL Hemoglobin (13.0-17.5) gm/dL Chloride (98-107) mmol/L Creatinine (0.66-1.25) mg/dL Glucose (74-99) mg/dL POC Glucose (mg/dL) 163 H (70-110) mg/dL Calcium (8.4-10.2) mg/dL Magnesium (1.6-2.3) mg/dL Total Protein (6.3-8.2) g/dL Albumin (3.5-5.0) g/dL Arterial Blood Glucose (75-99) mg/dL Crossmatch 05/14/23 05/14/23 05/14/23 Range/Units 18:47 18:48 19:38 WBC (3.8-10.6) k/uL RBC (4.30-5.90) m/uL Hgb (13.0-17.5) gm/dL Hct (39.0-53.0) % Plt Count (150-450) k/uL Neutrophils # (1.3-7.7) k/uL Lymphocytes # (1.0-4.8) k/uL INR (<1.2) ABG pH 7.34 L (7.35-7.45) ABG pCO2 (35-45) mmHg ABG pO2 177 H (83-108) mmHg ABG HCO3 (21-25) mmol/L ABG Total CO2 25 H (19-24) mmol/L ABG O2 Saturation 98.9 H (94-97) % ABG Hematocrit (34.0-46.0) % ABG Ionized Calcium (4.5-5.3) mg/dL ABG Glucose (75-99) mg/dL Hemoglobin (13.0-17.5) gm/dL Chloride (98-107) mmol/L Creatinine (0.66-1.25) mg/dL Glucose (74-99) mg/dL POC Glucose (mg/dL) 164 H 161 H (70-110) mg/dL Calcium (8.4-10.2) mg/dL Magnesium (1.6-2.3) mg/dL Total Protein (6.3-8.2) g/dL Albumin (3.5-5.0) g/dL Arterial Blood Glucose (75-99) mg/dL Crossmatch 05/14/23 05/14/23 05/14/23 Range/Units 20:03 21:13 22:07 WBC 15.6 H (3.8-10.6) k/uL RBC 3.93 L (4.30-5.90) m/uL Hgb 11.5 L (13.0-17.5) gm/dL Hct 31.9 L (39.0-53.0) % Plt Count 112 L (150-450) k/uL Neutrophils # 14.2 H (1.3-7.7) k/uL Lymphocytes # 0.6 L (1.0-4.8) k/uL INR (<1.2) ABG pH (7.35-7.45) ABG pCO2 (35-45) mmHg ABG pO2 (83-108) mmHg ABG HCO3 (21-25) mmol/L ABG Total CO2 (19-24) mmol/L ABG O2 Saturation (94-97) % ABG Hematocrit (34.0-46.0) % ABG Ionized Calcium (4.5-5.3) mg/dL ABG Glucose (75-99) mg/dL Hemoglobin (13.0-17.5) gm/dL Chloride (98-107) mmol/L Creatinine (0.66-1.25) mg/dL Glucose (74-99) mg/dL POC Glucose (mg/dL) 143 H 139 H (70-110) mg/dL Calcium (8.4-10.2) mg/dL Magnesium (1.6-2.3) mg/dL Total Protein (6.3-8.2) g/dL Albumin (3.5-5.0) g/dL Arterial Blood Glucose (75-99) mg/dL Crossmatch 05/14/23 05/15/23 05/15/23 Range/Units 22:59 00:07 01:13 WBC (3.8-10.6) k/uL RBC (4.30-5.90) m/uL Hgb (13.0-17.5) gm/dL Hct (39.0-53.0) % Plt Count (150-450) k/uL Neutrophils # (1.3-7.7) k/uL Lymphocytes # (1.0-4.8) k/uL INR (<1.2) ABG pH (7.35-7.45) ABG pCO2 (35-45) mmHg ABG pO2 (83-108) mmHg ABG HCO3 (21-25) mmol/L ABG Total CO2 (19-24) mmol/L ABG O2 Saturation (94-97) % ABG Hematocrit (34.0-46.0) % ABG Ionized Calcium (4.5-5.3) mg/dL ABG Glucose (75-99) mg/dL Hemoglobin (13.0-17.5) gm/dL Chloride (98-107) mmol/L Creatinine (0.66-1.25) mg/dL Glucose (74-99) mg/dL POC Glucose (mg/dL) 144 H 141 H 135 H (70-110) mg/dL Calcium (8.4-10.2) mg/dL Magnesium (1.6-2.3) mg/dL Total Protein (6.3-8.2) g/dL Albumin (3.5-5.0) g/dL Arterial Blood Glucose (75-99) mg/dL Crossmatch 05/15/23 05/15/23 05/15/23 Range/Units 02:04 03:00 04:08 WBC (3.8-10.6) k/uL RBC (4.30-5.90) m/uL Hgb (13.0-17.5) gm/dL Hct (39.0-53.0) % Plt Count (150-450) k/uL Neutrophils # (1.3-7.7) k/uL Lymphocytes # (1.0-4.8) k/uL INR (<1.2) ABG pH (7.35-7.45) ABG pCO2 (35-45) mmHg ABG pO2 (83-108) mmHg ABG HCO3 (21-25) mmol/L ABG Total CO2 (19-24) mmol/L ABG O2 Saturation (94-97) % ABG Hematocrit (34.0-46.0) % ABG Ionized Calcium (4.5-5.3) mg/dL ABG Glucose (75-99) mg/dL Hemoglobin (13.0-17.5) gm/dL Chloride (98-107) mmol/L Creatinine (0.66-1.25) mg/dL Glucose (74-99) mg/dL POC Glucose (mg/dL) 131 H 122 H 115 H (70-110) mg/dL Calcium (8.4-10.2) mg/dL Magnesium (1.6-2.3) mg/dL Total Protein (6.3-8.2) g/dL Albumin (3.5-5.0) g/dL Arterial Blood Glucose (75-99) mg/dL Crossmatch 05/15/23 05/15/23 05/15/23 Range/Units 05:08 05:08 06:48 WBC 12.6 H (3.8-10.6) k/uL RBC 3.40 L (4.30-5.90) m/uL Hgb 9.8 L D (13.0-17.5) gm/dL Hct 27.5 L (39.0-53.0) % Plt Count 113 L (150-450) k/uL Neutrophils # 10.5 H (1.3-7.7) k/uL Lymphocytes # (1.0-4.8) k/uL INR (<1.2) ABG pH (7.35-7.45) ABG pCO2 (35-45) mmHg ABG pO2 (83-108) mmHg ABG HCO3 (21-25) mmol/L ABG Total CO2 (19-24) mmol/L ABG O2 Saturation (94-97) % ABG Hematocrit (34.0-46.0) % ABG Ionized Calcium (4.5-5.3) mg/dL ABG Glucose (75-99) mg/dL Hemoglobin (13.0-17.5) gm/dL Chloride 108 H (98-107) mmol/L Creatinine (0.66-1.25) mg/dL Glucose (74-99) mg/dL POC Glucose (mg/dL) 125 H (70-110) mg/dL Calcium 7.7 L (8.4-10.2) mg/dL Magnesium (1.6-2.3) mg/dL Total Protein 4.7 L (6.3-8.2) g/dL Albumin 2.8 L (3.5-5.0) g/dL Arterial Blood Glucose (75-99) mg/dL Crossmatch 05/15/23 05/15/23 Range/Units 08:30 10:03 WBC (3.8-10.6) k/uL RBC (4.30-5.90) m/uL Hgb (13.0-17.5) gm/dL Hct (39.0-53.0) % Plt Count (150-450) k/uL Neutrophils # (1.3-7.7) k/uL Lymphocytes # (1.0-4.8) k/uL INR (<1.2) ABG pH (7.35-7.45) ABG pCO2 (35-45) mmHg ABG pO2 (83-108) mmHg ABG HCO3 (21-25) mmol/L ABG Total CO2 (19-24) mmol/L ABG O2 Saturation (94-97) % ABG Hematocrit (34.0-46.0) % ABG Ionized Calcium (4.5-5.3) mg/dL ABG Glucose (75-99) mg/dL Hemoglobin (13.0-17.5) gm/dL Chloride (98-107) mmol/L Creatinine (0.66-1.25) mg/dL Glucose (74-99) mg/dL POC Glucose (mg/dL) 158 H 157 H (70-110) mg/dL Calcium (8.4-10.2) mg/dL Magnesium (1.6-2.3) mg/dL Total Protein (6.3-8.2) g/dL Albumin (3.5-5.0) g/dL Arterial Blood Glucose (75-99) mg/dL Crossmatch
[2023-05-15 14:12] LABS: Glucose,Whole Blood 111 mg/dL (70-110)
[2023-05-15] MEDS: METOPROLOL TARTRATE 12.5 MG TAB PO SCH ×2 (14:39→20:52)
[2023-05-15] MEDS: KETOROLAC 15 MG/ML 1 ML VIAL IVP SCH ×2 (14:39→17:33)
[2023-05-15 15:14] LABS: Glucose,Whole Blood 94 mg/dL (70-110)
--- NOTE | 2023-05-15 15:31 | OP ---
OPERATIVE REPORT DATE OF SERVICE : 05/14/2023 ASSISTANTS: Marcell Salinas and Ronald Ornelas, physician assistant manager pt. PREOPERATIVE DIAGNOSES: Triple-vessel coronary artery disease, mild left ventricular dysfunction, diabetes, hypertension. POSTOPERATIVE DIAGNOSES: Triple-vessel coronary artery disease, mild left ventricular dysfunction, diabetes, hypertension, diffuse coronary artery disease. PROCEDURES PERFORMED: 1. Quintuple multiple arterial coronary artery bypass grafting using the left internal mammary artery sequentially to the medial branching of the diagonal artery in a [id number]-[id number]-midf fashion, then to the left anterior descending artery in an end-to-side fashion, the left radial artery from the aorta anastomosed in a [id number]-btwr fashion to the first obtuse marginal artery, then in an end-to-side fashion to the lateral branching of the diagonal artery, reverse saphenous vein graft from the aorta to the right coronary artery. 2. Exclusion of the left atrial appendage using a 35 mm AtriClip. 3. Endoscopic harvesting of the left radial artery. 4. Endoscopic harvesting of the left greater saphenous vein. 5. Intraoperative graft flow measurements using the HCI system. 6. Intraoperative transesophageal echocardiogram and epiaortic scanning. INDICATION FOR SURGERY: The patient is a 57-year-old gentleman, who was worked up as an outpatient and found to have triple-vessel coronary artery disease on his cardiac catheterization last week. His echo had showed an ejection fraction of 45% to 50%. His HbA1c was above 9; however, in view of the severity of the coronary artery disease, we did not have the luxury to wait longer before operating. The patient is brought in today for coronary artery bypass grafting using multiple arterial grafting in view of his age. The STS risk was discussed with him. He understood it and agreed to proceed. DESCRIPTION OF THE PROCEDURE: The patient in supine position. Right internal jugular [place]-Ange catheter and a right radial arterial line were placed. His PA pressure was 30/14 and his cardiac index was 2.6. Subsequently, general endotracheal anesthesia was induced uneventfully. The patient received 2 g of cefazolin intravenously. The chest, abdomen, both lower extremities and the left upper extremity were prepped and draped using ChloraPrep. Ioban was used to cover the skin. Transesophageal echocardiogram confirmed the preoperative finding of mild left ventricular dysfunction and no significant valvular abnormalities. Midline sternotomy was performed and the bone was moderately osteoporotic. No bone wax was used. The left hemisternum was elevated and the left internal mammary artery was harvested in a somewhat skeletonized fashion. The patient was given 5000 units of heparin. The mammary artery was clipped distally before its bifurcation, had an excellent pulsatile flow in it and was around 1.7 mm in diameter. The left pleura was intentionally opened in this process and was drained with a 19-[place] Island[place] Mike drain. The right pleura remained grossly intact. In the same setting, the left radial artery was exposed at the wrist and clamping trial revealed preserved signal in the left index O2 saturation probe. Subsequently, the radial artery was harvested endoscopically without using a tourniquet. The forearm incisions were closed over a drain. The radial artery was prepared by incising the fascia all along its volar aspect and clipping all its branches. It was of excellent quality around 2 to 3 mm in diameter. Also in the same setting, the left greater saphenous vein was harvested endoscopically after administration of 1500 units of heparin as the patient's baseline ACT was 165. The vein was prepared by tying all its branches. It was of good quality around 4 mm in diameter. The leg incisions were closed over a drain. Ankeney retractor was used. Mediastinal fat was transected between 2 ties and epiaortic scanning revealed no protruding atheroma in the ascending aorta, but evidence of concentric intimal thickening. Pericardium was opened in an inverted T- fashion and a pericardial cradle was created. Findings included a normal soft aorta and a normal size heart, however, with visible and palpable diffuse coronary artery disease. After systemic heparinization and after placement of respective pledgeted pursestring, aortic cannulation in the distal ascending aorta, venous cannulation via the right atrial appendage using a 3-stage 29-[place] Islander cannula was performed. Antegrade as well as retrograde cardioplegia catheter were placed. Cardiopulmonary bypass was initiated and with the heart empty and beating, we looked at the target. The posterior descending artery was diffusely diseased and there was disease also at its takeoff; however, the only spot on the right coronary artery that was bypassable was the right coronary artery before its bifurcation. Looking at the LAD, also it had diffuse disease in its mid aspect and will be bypassed distally. The first diagonal artery that had disease before it bifurcated was identified with its branchings. The high obtuse marginal artery or ramus intermedius artery was also identified. Looking at the lateral wall, there was a very small obtuse marginal artery, non-bypassable, totally occluded as it was not seen on catheterization and there was evidence of an old infarct probably at the posterolateral aspect. Aorta was clamped and during aortic clamping, myocardial protection was achieved and initial dose of 900 mL of antegrade cold blood cardioplegia, followed by 400 mL of retrograde cold blood cardioplegia. All subsequent doses were given retrograde at 15 to 20 minutes interval. We started by excluding the left atrial appendage by deploying a 35 mm AtriClip at its base. The first distal anastomosis was between a segment of vein of good quality and the right coronary artery at the bifurcation where it was around 2 mm in diameter using Prolene 7-0 in continuous fashion. The second distal anastomosis was a grmw-rp-vewu anastomosis between the radial artery and the high obtuse marginal artery in a parallel fashion using Prolene 7-0 in a continuous fashion. The distal end of the radial artery was anastomosed as a third distal anastomosis in an end-to-side fashion to the lateral branching of the diagonal artery, which was also thin-walled around 1.4 mm in diameter using Prolene 7-0 in continuous fashion. The fourth distal anastomosis was between the side of the left internal mammary artery that passed in a deep groove in the left pleura pericardial fat and the medial branching of the diagonal artery which was around 1.4 mm in diameter thin-walled using Prolene 7-0 in continuous fashion. The first and last distal anastomoses were between the end of the left internal mammary artery and the distal left anterior descending artery which was around 1.5 mm in diameter using Prolene 7-0 in continuous fashion. Satisfied with the distal anastomosis, rewarming was started as we punched out 2 buttons of the ascending aorta and performed the 2 proximal anastomoses of the vein graft and the radial artery to the aorta using running Prolene. Rewarming had been started as we performed the proximal anastomosis and we gave a total of 1 L of warm blood via the retrograde route as we performed the last proximal anastomosis, and we had receptor flow into the mammary artery. The patient was placed in Trendelenburg position and after de-airing maneuver, the aortic clamp was removed as the ascending aortic root vent was a maximum. The patient regained spontaneous sinus rhythm soon after. Two monopolar atrial pacing wires were affixed to the respective pursing of the right atrium. No ventricular pacing was placed. Initial signal in all the graft using the Medistim system showed good signal. After around 15 minutes of reperfusion, we were able to wean off cardiac bypass without the need of any inotropic or vasopressor support. Cardiac index was around 2.9. At this point, we proceeded at a formal graft flow measurements using the Medistim system. A 4 mm probe was selected and the flow into the vein to the RCA was 43 mL/minute, pulsatility index of 1.6, diastolic filling of 57% showing excellent functioning graft. The flow into the radial artery that was going to the high obtuse marginal artery as well as the lateral branching of the diagonal artery was 55 mL/minute, pulsatility index 1.8, diastolic filling of 67% showing excellent functioning graft. The flow into the left internal mammary artery that was going to the medial branch and with the diagonal artery and the left anterior descending artery was 60 mL/minute, pulsatility index of 1.5, diastolic filling of 67% showing excellent functioning graft. With that, all pump suckers were stopped as we gave test dose followed by full dose protamine. Decannulation followed. The venous cannulation site required reinforcement with a running 4-0 Prolene. Two 19-[place] Mike drains were left substernally. Mediastinal and pericardial fat were approximated over the heart and over the graft. After ensuring adequate hemostasis, hemodynamic and after correct sponge, instrument, and needle count, the sternum was closed using 5 afqkbv-yd-gcejy pioneer cable after interposing fibular between the sternal edges. Thorough irrigation of cefazolin followed. The rest of the closure proceeded in layers. Skin glue was applied. The patient did not receive any blood bank product, but received 650 mL of Cell Saver blood. He was transferred to the ICU, atrially paced at 74 sinus bradycardia with excellent hemodynamics on low-dose nitroglycerin. The NORMA showed essentially the same based on left ventricle function and no valvular issues. MMODL / IJN: [id number] / MTDD
[2023-05-15] MEDS ORDERED: DEXTROSE 50% SYRINGE 50 ML IVP PRN ×2 (16:26)
[2023-05-15 16:33] LABS: Glucose,Whole Blood 171 mg/dL (70-110)
[2023-05-15] MEDS: INSULIN ASPART (NovoLOG) 100 UNIT/ML VIAL SQ SCH ×2 (16:34→20:53)
[2023-05-15] MEDS ORDERED: METOPROLOL TARTRATE 12.5 MG TAB PO STA (17:09)
[2023-05-15 20:49] LABS: Glucose,Whole Blood 222 mg/dL (70-110)
[2023-05-15] MEDS: SENNOSIDES-DOCUSATE SODIUM 1 EACH TAB PO SCH (20:52)
[2023-05-15 21:12] LABS: ALT 15 U/L (4-49); AST 37 U/L (17-59); African American GFR (CKD) >90 (>60 ml/min/1.73 sqM); Albumin 3.3 g/dL (3.5-5.0); Alkaline Phosphatase 45 U/L (38-126); Anion Gap 8 mmol/L; Blood Urea Nitrogen 25 mg/dL (9-20); Calcium 7.8 mg/dL (8.4-10.2); Carbon Dioxide 23 mmol/L (22-30); Chloride 105 mmol/L (98-107); Glucose 198 mg/dL (74-99); Non-African American GFR(CKD) 80 (>60 ml/min/1.73 sqM); Potassium 4.3 mmol/L (3.5-5.1); Sodium 136 mmol/L (137-145); Total Protein 5.1 g/dL (6.3-8.2)
[2023-05-16] MEDS: KETOROLAC 15 MG/ML 1 ML VIAL IVP SCH ×2 (00:07→07:14)
[2023-05-16] MEDS: HEPARIN SODIUM,PORCINE 5,000 UNIT/ML 1 ML VIAL SQ SCH ×2 (00:08→07:46)
[2023-05-16] MEDS: SODIUM CHLORIDE 0.9% 1,000 ML IV SCH ×2 (04:02→22:50)
[2023-05-16] MEDS ORDERED: KETOROLAC 15 MG/ML 1 ML VIAL IVP STA (04:34)
[2023-05-16 05:42] LABS: Ionized Calcium 4.6 mg/dL (4.5-5.3)
[2023-05-16 05:45] LABS: Basophils % (A) 0 %; Eosinophils % (A) 0 %; HCT 20.8 % (39.0-53.0); Lymphocytes # (A) 0.9 k/uL (1.0-4.8); Lymphocytes % (A) 9 %; MCH 30.8 pg (25.0-35.0); MCHC 37.5 g/dL (31.0-37.0); MCV 82.1 fL (80.0-100.0); Mean Platelet Volume 12.1; Monocytes # (A) 0.6 k/uL (0-1.0); Monocytes % (A) 6 %; Neutrophils # (A) 8.4 k/uL (1.3-7.7); Neutrophils % (A) 83 %; RBC 2.53 m/uL (4.30-5.90); RDW 12.8 % (11.5-15.5); WBC 10.1 k/uL (3.8-10.6)
[2023-05-16 05:49] LABS: ALT 14 U/L (4-49); AST 31 U/L (17-59); African American GFR (CKD) >90 (>60 ml/min/1.73 sqM); Albumin 3.2 g/dL (3.5-5.0); Alkaline Phosphatase 48 U/L (38-126); Anion Gap 9 mmol/L; Blood Urea Nitrogen 28 mg/dL (9-20); Calcium 7.9 mg/dL (8.4-10.2); Carbon Dioxide 21 mmol/L (22-30); Chloride 104 mmol/L (98-107); Glucose 230 mg/dL (74-99); Non-African American GFR(CKD) 83 (>60 ml/min/1.73 sqM); Potassium 4.2 mmol/L (3.5-5.1); Sodium 134 mmol/L (137-145); Total Bilirubin 1.1 mg/dL (0.2-1.3)
[2023-05-16 05:56] LABS: HGB 7.8 gm/dL (13.0-17.5)
[2023-05-16 06:29] LABS: Platelet Count 68 k/uL (150-450)
[2023-05-16 06:45] LABS: Glucose,Whole Blood 259 mg/dL (70-110)
[2023-05-16] MEDS: INSULIN ASPART (NovoLOG) 100 UNIT/ML VIAL SQ SCH ×4 (06:46→20:27)
[2023-05-16] MEDS: PANTOPRAZOLE 40 MG TABLET PO SCH (06:46)
--- NOTE | 2023-05-16 06:57 | XR ---
EXAMINATION TYPE: XR chest 1V portable DATE OF EXAM: 05/16/2023 5:18 AM COMPARISON: Chest radiographs from 05/15/2023 TECHNIQUE: XR chest 1V portable Portable AP radiograph of the chest. CLINICAL INDICATION:Male, 57 years old with history of Post Operative Cardiac Surgery; FINDINGS: Lungs/Pleura: No focal consolidation or pneumothorax. No sizable pneumothorax. Pulmonary vascularity: Unremarkable. Heart/mediastinum: Cardiomediastinal silhouette is enlarged and stable. Post-CABG changes. Left atri al appendage occlusion devices present. Musculoskeletal: No acute osseous pathology. Midline sternotomy wires are noted and stable. Other findings: None Lines/Tubes: Interval removal of [place]-Ange catheter with right IJ sheath left in place. Mediastinal drains remain in place. IMPRESSION: Post-CABG changes without sizable pneumothorax.
--- NOTE | 2023-05-16 07:32 | P.PN ---
Subjective Progress Note Date: 05/16/23 PROGRESS NOTE The patient is a 57-year-old male who underwent CABG today. He was recently seen in our office with newly diagnosed hyperlipidemia, he had diabetes not treated for many years and presented with symptoms of progressive fatigue, dyspnea and had an abnormal stress test. He underwent cardiac catheterization and was found to have calcified left main and proximal LAD with severe triple- vessel CAD. His intubated, sedated but starting to wake up, in sinus mechanism. Hemodynamically stable. There is no evidence of atrial fibrillation or ventricular tachyarrhythmia. His systolic function preoperatively was mildly impaired. May 15: The patient underwent CABG yesterday, he is extubated, sitting up in the chair. Complaining of soreness in the chest. He is in sinus mechanism. He denies any dizziness or palpitations, no nausea. He is on no vasopressors . Urinary output is good. May 16: The patient sitting up in the chair, feels well. He is using his incentive spirometry. He denies any significant chest discomfort. His breathing is stable. He is in sinus mechanism and had multiple PACs earlier, he was started on amiodarone. His EKG shows ST segment elevation consistent with pericarditis. He denies any nausea or vomiting. He is ambulating. Medications: Metoprolol 25 mg twice a day, aspirin, Plavix 75 mg daily, Lipitor 40 mg daily, amiodarone 400 mg twice a day, amlodipine 2.5 mg daily PHYSICAL EXAMINATION: Blood pressure 124/60 heart rate 98 LUNGS: Mild decreased breath sounds at the base HEART: Regular rate and rhythm, S1, S2. No S3. No systolic murmur, plus rub ABDOMEN: Soft, nontender, no organomegaly EXTREMETIES: No edema LAB: Hemoglobin 7.8, WBC 10.1, BUN 28 creatinine 1.02 IMPRESSION: 1. Status post CABG, stable, extubated 2. Hyperlipidemia 3. diabetes mellitus 4. Mild cardiomyopathy preoperatively 5. Probable postoperative pericarditis PLAN: 1. Continue present therapy 2. Follow blood pressure and if stable add VIKI inhibitor 3. Increase physical activity 4. Incentive spirometry Objective - Vital Signs Vital signs: Vital Signs Temp 98.7 F 05/16/23 04:00 Pulse 106 H 05/16/23 07:00 Resp 41 H 05/16/23 07:00 BP 100/61 08/31/23 06:30 Pulse Ox 96 05/16/23 07:00 FiO2 50 05/14/23 17:38 Intake & Output 05/15/23 05/16/23 05/16/23 18:59 06:59 18:59 Intake Total 1205.341 662 56 Output Total 400 490 40 Balance 805.341 172 16 Weight 92 kg 90.6 kg Intake: IV 961 662 56 Albumin Human 5% 250 ml 300 In Empty Bag 1 bag @ 250 mls/hr IVPB Q1HR PRN Rx#: [id number] CO/CI 20 LR 150 Pressure bags 81 72 6 Sodium Chloride 0.9% 1, 360 590 50 000 ml @ 50 mls/hr IV . Q20H [facility] Rx#:[id number] ceFAZolin 2 gm In Sodium 50 Chloride 0.9% 50 ml @ 100 mls/hr IVPB Q8HR ON LICENSE OF [facility] Rx# :[id number] Intake, IV Titration 24.341 Amount Insulin Regular 100 unit 24.341 In Sodium Chloride 0.9% 100 ml @ Per Protocol IV .Q0M ON LICENSE OF [facility] Rx#:[id number] Oral 220 Output: Chest Tube Drainage 80 180 Chest Tube Left 35 100 Chest Tube Right Pleural/ 45 80 Mediastinal Drainage 40 15 L. leg FARHAT 40 15 Urine 280 295 40 Other: Voiding Method Indwelling Catheter Indwelling Catheter ABP, PAP, CO, CI - Last Documented Arterial Blood Pressure 124/58 Pulmonary Artery Pressure 28/15 Cardiac Output 5.8 Cardiac Index 2.9 - Labs CBC & Chem 7: 05/16/23 05:22 05/16/23 05:22 Labs: Abnormal Lab Results - Last 24 Hours (Table) 05/09/23 05/15/23 05/15/23 Range/Units 12:51 08:30 10:03 RBC (4.30-5.90) m/uL Hgb (13.0-17.5) gm/dL Hct (39.0-53.0) % MCHC (31.0-37.0) g/dL Plt Count (150-450) k/uL Neutrophils # (1.3-7.7) k/uL Lymphocytes # (1.0-4.8) k/uL Sodium (137-145) mmol/L Carbon Dioxide (22-30) mmol/L BUN (9-20) mg/dL Glucose (74-99) mg/dL POC Glucose (mg/dL) 158 H 157 H (70-110) mg/dL Calcium (8.4-10.2) mg/dL Magnesium (1.6-2.3) mg/dL Total Protein (6.3-8.2) g/dL Albumin (3.5-5.0) g/dL Crossmatch See Detail 05/15/23 05/15/23 05/15/23 Range/Units 11:14 12:52 14:10 RBC (4.30-5.90) m/uL Hgb (13.0-17.5) gm/dL Hct (39.0-53.0) % MCHC (31.0-37.0) g/dL Plt Count (150-450) k/uL Neutrophils # (1.3-7.7) k/uL Lymphocytes # (1.0-4.8) k/uL Sodium (137-145) mmol/L Carbon Dioxide (22-30) mmol/L BUN (9-20) mg/dL Glucose (74-99) mg/dL POC Glucose (mg/dL) 148 H 135 H 111 H (70-110) mg/dL Calcium (8.4-10.2) mg/dL Magnesium (1.6-2.3) mg/dL Total Protein (6.3-8.2) g/dL Albumin (3.5-5.0) g/dL Crossmatch 05/15/23 05/15/23 05/15/23 Range/Units 16:31 20:09 20:09 RBC (4.30-5.90) m/uL Hgb (13.0-17.5) gm/dL Hct (39.0-53.0) % MCHC (31.0-37.0) g/dL Plt Count (150-450) k/uL Neutrophils # (1.3-7.7) k/uL Lymphocytes # (1.0-4.8) k/uL Sodium 136 L (137-145) mmol/L Carbon Dioxide (22-30) mmol/L BUN 25 H (9-20) mg/dL Glucose 198 H (74-99) mg/dL POC Glucose (mg/dL) 171 H (70-110) mg/dL Calcium 7.8 L (8.4-10.2) mg/dL Magnesium 2.4 H (1.6-2.3) mg/dL Total Protein 5.1 L (6.3-8.2) g/dL Albumin 3.3 L (3.5-5.0) g/dL Crossmatch 05/15/23 05/16/23 05/16/23 Range/Units 20:48 05:22 05:22 RBC 2.53 L (4.30-5.90) m/uL Hgb 7.8 L D (13.0-17.5) gm/dL Hct 20.8 L (39.0-53.0) % MCHC 37.5 H (31.0-37.0) g/dL Plt Count 68 L (150-450) k/uL Neutrophils # 8.4 H (1.3-7.7) k/uL Lymphocytes # 0.9 L (1.0-4.8) k/uL Sodium 134 L (137-145) mmol/L Carbon Dioxide 21 L (22-30) mmol/L BUN 28 H (9-20) mg/dL Glucose 230 H (74-99) mg/dL POC Glucose (mg/dL) 222 H (70-110) mg/dL Calcium 7.9 L (8.4-10.2) mg/dL Magnesium (1.6-2.3) mg/dL Total Protein 5.0 L (6.3-8.2) g/dL Albumin 3.2 L (3.5-5.0) g/dL Crossmatch 05/16/23 Range/Units 06:43 RBC (4.30-5.90) m/uL Hgb (13.0-17.5) gm/dL Hct (39.0-53.0) % MCHC (31.0-37.0) g/dL Plt Count (150-450) k/uL Neutrophils # (1.3-7.7) k/uL Lymphocytes # (1.0-4.8) k/uL Sodium (137-145) mmol/L Carbon Dioxide (22-30) mmol/L BUN (9-20) mg/dL Glucose (74-99) mg/dL POC Glucose (mg/dL) 259 H (70-110) mg/dL Calcium (8.4-10.2) mg/dL Magnesium (1.6-2.3) mg/dL Total Protein (6.3-8.2) g/dL Albumin (3.5-5.0) g/dL Crossmatch
[2023-05-16] MEDS ORDERED: DEXTROSE 5% IN WATER 100 ML with AMIODARONE 150 MG IV ONE (08:15)
[2023-05-16] MEDS: IPRATROPIUM-ALBUTEROL 3 ML NEB INHALATION SCH ×4 (08:42→21:19)
[2023-05-16] MEDS: COLCHICINE 0.6 MG EACH PO SCH ×2 (08:49→20:27)
[2023-05-16] MEDS: METOPROLOL TARTRATE 25 MG TAB PO SCH ×2 (08:49→20:27)
[2023-05-16] MEDS: CLOPIDOGREL 75 MG TAB PO SCH (08:49)
[2023-05-16] MEDS: DILTIAZEM ORAL 30 MG TAB PO SCH ×2 (08:49→17:21)
[2023-05-16] MEDS: ATORVASTATIN 40 MG TAB PO SCH (08:49)
[2023-05-16] MEDS: ASPIRIN 325 MG TAB PO SCH (08:49)
[2023-05-16] MEDS: AMIODARONE 200 MG TAB PO SCH ×2 (08:49→20:27)
[2023-05-16] MEDS: FONDAPARINUX 2.5 MG/0.5 ML SYRINGE SQ SCH (08:50)
[2023-05-16] MEDS ORDERED: amLODIPine 2.5 MG TAB PO SCH (09:00)
[2023-05-16 11:44] LABS: Glucose,Whole Blood 418 mg/dL (70-110)
[2023-05-16 11:44] LABS: Glucose,Whole Blood 444 mg/dL (70-110)
[2023-05-16] MEDS ORDERED: INSULIN DETEMIR (LEVEMIR) 100 UNIT/ML SYR SQ ONE (11:59)
--- NOTE | 2023-05-16 13:09 | P.PN ---
Subjective Progress Note Date: 05/16/23 patient is a 57-year-old gentleman with past medical history significant for hyperlipidemia, diabetes mellitus, lifelong nonsmoker who presented to the hospital for elective CABG on 05/14. Patient underwent cardiac catheterization on 05/09/2023 and was found to have significant triple-vessel coronary artery disease and was recommended surgical revascularization. Patient underwent CABG on 05/14. Postoperatively patient was monitored in the ICU, initially was intubated and was on mechanical ventilation. Patient was extubated yesterday. Medicine team was consulted for medical management 05/16. Patient seen and examined. Patient sitting upright in the chair. States he is passing gas. Tolerating diet. Patient ambulatory in the hallway this morning. REVIEW OF SYSTEMS: CONSTITUTIONAL: No fever, no malaise,. CARDIOVASCULAR: No chest pain, no palpitations, no syncope. PULMONARY: No shortness of breath, no cough, GASTROINTESTINAL: No diarrhea, no nausea, no vomiting, no abdominal pain. NEUROLOGICAL: No headaches, no weakness, PHYSICAL EXAMINATION: GENERAL: The patient is alert and oriented x3, not in any acute distress. Well developed, well nourished. HEENT: Pupils are round and equally reacting to light. EOMI. No scleral icterus. No conjunctival pallor. Normocephalic, atraumatic. No pharyngeal erythema. No thyromegaly. CARDIOVASCULAR: S1 and S2 present. No murmurs, rubs, or gallops. PULMONARY: Diminished breath sounds at the bases bilaterally, chest tubes seen ABDOMEN: Soft, nontender, nondistended, normoactive bowel sounds. No palpable organomegaly. MUSCULOSKELETAL: No joint swelling or deformity. EXTREMITIES: No cyanosis, clubbing, or pedal edema. NEUROLOGICAL: Gross neurological examination did not reveal any focal deficits. SKIN: No rashes. Assessment and plan Coronary artery disease, status post CABG with a PELAYO to the diagonal 2 to the LAD, left radial to the OM1 to the Diag 1, saphenous vein graft to the RCA. Diabetes mellitus Hyperlipidemia Lifelong nonsmoker Monitor vital signs Monitor CBC Monitor CMP Continue telemetry monitoring Aggressive bronchopulmonary hygiene Encourage use of I-S Continue aspirin, Lipitor Continue Plavix Continue Cardizem monitor blood sugar levels, last HbA1c level was 8.7. continue sliding scale insulin, start Lantus 5 units daily Continue chest tube management per cardiac surgery Continue postop care per cardiac surgery Critical care following Labs and medication were reviewed.. Continue same treatment. Continue with s ymptomatic treatment. Resume home medication. Monitor labs and vitals. DVT and GI prophylaxis. Further recommendations as per clinical course of the patient Dictation was produced using [employer] dictation software. please excuse any grammatical, word or spelling errors. Objective - Vital Signs Vital signs: Vital Signs Temp 98 F 05/16/23 08:30 Pulse 83 05/16/23 12:00 Resp 27 H 05/16/23 12:00 BP 102/54 05/16/23 12:00 Pulse Ox 98 05/16/23 12:00 FiO2 50 05/14/23 17:38 Intake & Output 05/15/23 05/16/23 05/16/23 18:59 06:59 18:59 Intake Total 1205.341 662 327 Output Total 400 490 410 Balance 805.341 172 -83 Weight 92 kg 90.6 kg Intake: IV 961 662 327 Albumin Human 5% 250 ml 300 In Empty Bag 1 bag @ 250 mls/hr IVPB Q1HR PRN Rx#: [id number] CO/CI 20 LR 150 Pressure bags 81 72 27 Sodium Chloride 0.9% 1, 360 590 300 000 ml @ 50 mls/hr IV . Q20H [facility] Rx#:[id number] ceFAZolin 2 gm In Sodium 50 Chloride 0.9% 50 ml @ 100 mls/hr IVPB Q8HR [facility] Rx# :[id number] Intake, IV Titration 24.341 Amount Insulin Regular 100 unit 24.341 In Sodium Chloride 0.9% 100 ml @ Per Protocol IV .Q0M [facility] Rx#:[id number] Oral 220 Output: Chest Tube Drainage 80 180 70 Chest Tube Left 35 100 40 Chest Tube Right Pleural/ 45 80 30 Mediastinal Drainage 40 15 L. leg FARHAT 40 15 Urine 280 295 340 Other: Voiding Method Indwelling Catheter Indwelling Catheter Indwelling Catheter ABP, PAP, CO, CI - Last Documented Arterial Blood Pressure 116/48 Pulmonary Artery Pressure 28/15 Cardiac Output 5.8 Cardiac Index 2.9 - Labs CBC & Chem 7: 05/16/23 05:22 05/16/23 05:22 Labs: Abnormal Lab Results - Last 24 Hours (Table) 05/09/23 05/15/23 05/15/23 Range/Units 12:51 14:10 16:31 RBC (4.30-5.90) m/uL Hgb (13.0-17.5) gm/dL Hct (39.0-53.0) % MCHC (31.0-37.0) g/dL Plt Count (150-450) k/uL Neutrophils # (1.3-7.7) k/uL Lymphocytes # (1.0-4.8) k/uL Sodium (137-145) mmol/L Carbon Dioxide (22-30) mmol/L BUN (9-20) mg/dL Glucose (74-99) mg/dL POC Glucose (mg/dL) 111 H 171 H (70-110) mg/dL Hemoglobin A1c (<=6.0) % Calcium (8.4-10.2) mg/dL Magnesium (1.6-2.3) mg/dL Total Protein (6.3-8.2) g/dL Albumin (3.5-5.0) g/dL Crossmatch See Detail 05/15/23 05/15/23 05/15/23 Range/Units 20:09 20:09 20:48 RBC (4.30-5.90) m/uL Hgb (13.0-17.5) gm/dL Hct (39.0-53.0) % MCHC (31.0-37.0) g/dL Plt Count (150-450) k/uL Neutrophils # (1.3-7.7) k/uL Lymphocytes # (1.0-4.8) k/uL Sodium 136 L (137-145) mmol/L Carbon Dioxide (22-30) mmol/L BUN 25 H (9-20) mg/dL Glucose 198 H (74-99) mg/dL POC Glucose (mg/dL) 222 H (70-110) mg/dL Hemoglobin A1c (<=6.0) % Calcium 7.8 L (8.4-10.2) mg/dL Magnesium 2.4 H (1.6-2.3) mg/dL Total Protein 5.1 L (6.3-8.2) g/dL Albumin 3.3 L (3.5-5.0) g/dL Crossmatch 05/16/23 05/16/23 05/16/23 Range/Units 05:22 05:22 05:22 RBC 2.53 L (4.30-5.90) m/uL Hgb 7.8 L D (13.0-17.5) gm/dL Hct 20.8 L (39.0-53.0) % MCHC 37.5 H (31.0-37.0) g/dL Plt Count 68 L (150-450) k/uL Neutrophils # 8.4 H (1.3-7.7) k/uL Lymphocytes # 0.9 L (1.0-4.8) k/uL Sodium 134 L (137-145) mmol/L Carbon Dioxide 21 L (22-30) mmol/L BUN 28 H (9-20) mg/dL Glucose 230 H (74-99) mg/dL POC Glucose (mg/dL) (70-110) mg/dL Hemoglobin A1c 8.7 H (<=6.0) % Calcium 7.9 L (8.4-10.2) mg/dL Magnesium (1.6-2.3) mg/dL Total Protein 5.0 L (6.3-8.2) g/dL Albumin 3.2 L (3.5-5.0) g/dL Crossmatch 05/16/23 05/16/23 05/16/23 Range/Units 06:43 11:41 11:42 RBC (4.30-5.90) m/uL Hgb (13.0-17.5) gm/dL Hct (39.0-53.0) % MCHC (31.0-37.0) g/dL Plt Count (150-450) k/uL Neutrophils # (1.3-7.7) k/uL Lymphocytes # (1.0-4.8) k/uL Sodium (137-145) mmol/L Carbon Dioxide (22-30) mmol/L BUN (9-20) mg/dL Glucose (74-99) mg/dL POC Glucose (mg/dL) 259 H 418 H 444 H (70-110) mg/dL Hemoglobin A1c (<=6.0) % Calcium (8.4-10.2) mg/dL Magnesium (1.6-2.3) mg/dL Total Protein (6.3-8.2) g/dL Albumin (3.5-5.0) g/dL Crossmatch
--- NOTE | 2023-05-16 14:29 | P.PN ---
Subjective Progress Note Date: 05/16/23 Principal diagnosis: Multivessel coronary artery disease, status post CABG, postoperative day #2 This is a 57-year-old male patient with a known history of hyperlipidemia, diabetes mellitus, lifelong nonsmoker who had undergone a cardiac catheterization on 05/09/2023 and was found to have significant triple-vessel coronary artery disease and was recommended surgical revascularization. He was brought in today 05/14/2023 for surgery. He is seen in the immediate postoperative period in the intensive care unit. He is intubated and on mechanical ventilator rate of 14, tidal volume 500, FiO2 100% and a PEEP of 5. He has a mediastinal chest tube, left pleural chest tube. [place]-Ange catheter in place via the right IJ. Pacer wires in place. Cardiac output 4.7. Cardiac i ndex 2.4. PA pressures 32/20. CVP 13. Currently in sinus rhythm. He has a nitroglycerin drip at 5 mcg/m. Insulin drip at 2 units per hour. Chest x-ray shows proper positioning of tubes and lines. No acute opacities or infiltrates. Labs pending. ABGs pending. Patient was reevaluated today on 05/15/2023, patient was extubated last night a few hours after he arrived to the ICU uneventfully, he is on 3 L nasal cannula with O2 saturation 99%, blood pressure seems to be a bit soft 94/38. Patient does not seem to be in any distress. Continues to have mediastinal and chest tube in place. He is on insulin drip at 3 units per hour chest x-ray today is reassuring. Post CABG changes, could not appreciate any pneumothorax as noted by the radiologist he does have a bit of a mild pulmonary vascular congestion. WBC count is 12.6 and 9.8 electrolytes are normal renal profile is normal Reevaluated today on 05/16/2023, patient is still in ICU, doing well, he is on 2 L nasal cannula, on amiodarone drip denies any shortness of breath or wheezing, noted to have some ST elevation, and felt that the patient may have some component of pericarditis and colchicine was started. His IV fluids at KVO, his chest x-ray is showing postoperative changes, minimal left basilar atelectasis, no evidence of congestive heart failure. CBC is relatively normal except for hemoglobin of 7.8 and left lites are normal renal profile is normal patient has been ambulating today in the hallway, however he had difficulty with incentive spirometry. Objective - Vital Signs Vital signs: Vital Signs Temp 98 F 05/16/23 08:30 Pulse 80 05/16/23 14:00 Resp 26 H 05/16/23 14:00 BP 103/60 05/16/23 14:00 Pulse Ox 97 05/16/23 14:00 FiO2 50 05/14/23 17:38 Intake & Output 05/15/23 05/16/23 05/16/23 18:59 06:59 18:59 Intake Total 1205.341 662 380 Output Total 400 490 450 Balance 805.341 172 -70 Weight 92 kg 90.6 kg Intake: IV 961 662 380 Albumin Human 5% 250 ml 300 In Empty Bag 1 bag @ 250 mls/hr IVPB Q1HR PRN Rx#: [id number] CO/CI 20 LR 150 Pressure bags 81 72 30 Sodium Chloride 0.9% 1, 360 590 350 000 ml @ 50 mls/hr IV . Q20H [facility] Rx#:[id number] ceFAZolin 2 gm In Sodium 50 Chloride 0.9% 50 ml @ 100 mls/hr IVPB Q8HR [facility] Rx# :[id number] Intake, IV Titration 24.341 Amount Insulin Regular 100 unit 24.341 In Sodium Chloride 0.9% 100 ml @ Per Protocol IV .Q0M [facility] Rx#:[id number] Oral 220 Output: Chest Tube Drainage 80 180 70 Chest Tube Left 35 100 40 Chest Tube Right Pleural/ 45 80 30 Mediastinal Drainage 40 15 L. leg FARHAT 40 15 Urine 280 295 380 Other: Voiding Method Indwelling Catheter Indwelling Catheter Indwelling Catheter ABP, PAP, CO, CI - Last Documented Arterial Blood Pressure 116/48 Pulmonary Artery Pressure 28/15 Cardiac Output 5.8 Cardiac Index 2.9 - Exam GENERAL EXAM: Revealed 57-year-old white male pleasant in no distress on 2 L nasal cannula HEAD: Normocephalic. EENT: PERRLA, EOMI, nonicteric, no neck masses, no JVD. CHEST: Surgical dressing dry and intact. Heart regular in place. Pacer wires in place. Chest tubes in place. LUNGS: Diminished breath sounds and crackles at the bases CVS: S1 and S2 normal with no audible murmur, regular rhythm. Positive pericardial rub ABDOMEN: Soft nontender no megaly no rebound no guarding. SKIN: No rashes CENTRAL NERVOUS SYSTEM: Alert and oriented 3 no gross focal deficit EXTREMITIES: No clubbing edema or cyanosis. Psychiatric: Normal mood affect and normal mental status examination - Labs CBC & Chem 7: 05/16/23 05:22 05/16/23 05:22 Labs: Abnormal Lab Results - Last 24 Hours (Table) 05/09/23 05/15/23 05/15/23 Range/Units 12:51 16:31 20:09 RBC (4.30-5.90) m/uL Hgb (13.0-17.5) gm/dL Hct (39.0-53.0) % MCHC (31.0-37.0) g/dL Plt Count (150-450) k/uL Neutrophils # (1.3-7.7) k/uL Lymphocytes # (1.0-4.8) k/uL Sodium 136 L (137-145) mmol/L Carbon Dioxide (22-30) mmol/L BUN 25 H (9-20) mg/dL Glucose 198 H (74-99) mg/dL POC Glucose (mg/dL) 171 H (70-110) mg/dL Hemoglobin A1c (<=6.0) % Calcium 7.8 L (8.4-10.2) mg/dL Magnesium (1.6-2.3) mg/dL Total Protein 5.1 L (6.3-8.2) g/dL Albumin 3.3 L (3.5-5.0) g/dL Crossmatch See Detail 05/15/23 05/15/23 05/16/23 Range/Units 20:09 20:48 05:22 RBC (4.30-5.90) m/uL Hgb (13.0-17.5) gm/dL Hct (39.0-53.0) % MCHC (31.0-37.0) g/dL Plt Count (150-450) k/uL Neutrophils # (1.3-7.7) k/uL Lymphocytes # (1.0-4.8) k/uL Sodium (137-145) mmol/L Carbon Dioxide (22-30) mmol/L BUN (9-20) mg/dL Glucose (74-99) mg/dL POC Glucose (mg/dL) 222 H (70-110) mg/dL Hemoglobin A1c 8.7 H (<=6.0) % Calcium (8.4-10.2) mg/dL Magnesium 2.4 H (1.6-2.3) mg/dL Total Protein (6.3-8.2) g/dL Albumin (3.5-5.0) g/dL Crossmatch 05/16/23 05/16/23 05/16/23 Range/Units 05:22 05:22 06:43 RBC 2.53 L (4.30-5.90) m/uL Hgb 7.8 L D (13.0-17.5) gm/dL Hct 20.8 L (39.0-53.0) % MCHC 37.5 H (31.0-37.0) g/dL Plt Count 68 L (150-450) k/uL Neutrophils # 8.4 H (1.3-7.7) k/uL Lymphocytes # 0.9 L (1.0-4.8) k/uL Sodium 134 L (137-145) mmol/L Carbon Dioxide 21 L (22-30) mmol/L BUN 28 H (9-20) mg/dL Glucose 230 H (74-99) mg/dL POC Glucose (mg/dL) 259 H (70-110) mg/dL Hemoglobin A1c (<=6.0) % Calcium 7.9 L (8.4-10.2) mg/dL Magnesium (1.6-2.3) mg/dL Total Protein 5.0 L (6.3-8.2) g/dL Albumin 3.2 L (3.5-5.0) g/dL Crossmatch 05/16/23 05/16/23 Range/Units 11:41 11:42 RBC (4.30-5.90) m/uL Hgb (13.0-17.5) gm/dL Hct (39.0-53.0) % MCHC (31.0-37.0) g/dL Plt Count (150-450) k/uL Neutrophils # (1.3-7.7) k/uL Lymphocytes # (1.0-4.8) k/uL Sodium (137-145) mmol/L Carbon Dioxide (22-30) mmol/L BUN (9-20) mg/dL Glucose (74-99) mg/dL POC Glucose (mg/dL) 418 H 444 H (70-110) mg/dL Hemoglobin A1c (<=6.0) % Calcium (8.4-10.2) mg/dL Magnesium (1.6-2.3) mg/dL Total Protein (6.3-8.2) g/dL Albumin (3.5-5.0) g/dL Crossmatch Assessment and Plan Assessment: Impression: Coronary artery disease, status post coronary artery bypass grafting x 5 with a PELAYO to the diagonal 2 to the LAD, left radial to the OM1 to the Diag 1, saphenous vein graft to the RCA. Postoperative day #2 Type 2 diabetes Dyslipidemia Lifelong nonsmoker Recommendation: Continue ambulation and incentive spirometry Maximize medical therapy including aspirin statins and Plavix and beta blockers Continue amiodarone Continue GI and DVT prophylaxis We'll continue to follow Time with Patient: Less than 30
[2023-05-16 16:30] LABS: Glucose,Whole Blood 285 mg/dL (70-110)
[2023-05-16] MEDS: HYDROcodone/APAP 5-325MG 1 EACH TAB PO PRN (17:47)
--- NOTE | 2023-05-16 17:52 | P.PN ---
Subjective Progress Note Date: 05/16/23 Principal diagnosis: Multivessel coronary artery disease. Past medical history significant for type 2 diabetes mellitus, hyperlipidemia and is a lifetime nonsmoker. POD #3 coronary artery bypass grafting 5 vessels with left internal mammary artery as a sequential to the diagonal coronary artery and left anterior descending coronary artery, left radial artery as a sequential to the diagonal #1 coronary artery and to the obtuse marginal #1 coronary artery, and a reverse saphenous vein graft to the right coronary artery. Endoscopic harvesting of the left radial artery and left greater saphenous vein, exclusion of the left atrial appendage using a 35 mm Atriclip, intraoperative epi-aortic ultrasound, graft flow measurements using the Aproposestim flowmeter system, and intraoperative transesophageal echocardiogram performed by anesthesia. Postoperative acute blood loss anemia, expected given hemodilution and cardiopulmonary bypass. The patient was seen and examined in follow-up today 05/16/2023 is bedside in intensive care unit. Currently sitting up to bedside chair, is awake, alert, oriented 3 is no acute distress. Denies any complaints of shortness of breath although is complaining of some pain to his chest tube insertion sites rating his pain 2 out of 10 on the pain scale. Oxygen saturations are 96% on room air and he is achieving 500-750 mL on his incentive spirometry with encouragement. Bedside telemetry showing sinus tachycardia heart rate 100 BPM. He remains hemodynamically stable and is currently on no inotropic pressure support. He was having some sinus tachycardia with frequent PACs throughout the night and was started on amiodarone drip per protocol. Amiodarone is currently infusing at 0.5 mg/m. Mediastinal and left pleural chest tubes remain in place to low continuous wall suction -20 cm H2O. No air leak is present. Draining thin serosanguineous drainage. Left pleural chest tube drain 80 mL output in the last 8 hours and 150 mL output in the last 24 hours. Mediastinal chest tube drained 50 mL output in the last 8 hours 180 mL output in the last 24 hours. Left lower extremity FARHAT drain with scant serosanguineous drainage. Chest x-ray laboratory results were reviewed. Objective - Vital Signs Vital signs: Vital Signs Temp 98.4 F 05/16/23 16:00 Pulse 96 05/16/23 17:00 Resp 25 H 05/16/23 17:00 BP 119/68 05/16/23 17:00 Pulse Ox 97 05/16/23 17:00 FiO2 50 05/14/23 17:38 Intake & Output 05/15/23 05/16/23 05/16/23 18:59 06:59 18:59 Intake Total 1205.341 662 526 Output Total 400 490 665 Balance 805.341 172 -139 Weight 92 kg 90.6 kg Intake: IV 961 662 526 Albumin Human 5% 250 ml 300 In Empty Bag 1 bag @ 250 mls/hr IVPB Q1HR PRN Rx#: [id number] CO/CI 20 LR 150 Pressure bags 81 72 36 Sodium Chloride 0.9% 1, 360 590 490 000 ml @ 50 mls/hr IV . Q20H [facility] Rx#:[id number] ceFAZolin 2 gm In Sodium 50 Chloride 0.9% 50 ml @ 100 mls/hr IVPB Q8HR [facility] Rx# :[id number] Intake, IV Titration 24.341 Amount Insulin Regular 100 unit 24.341 In Sodium Chloride 0.9% 100 ml @ Per Protocol IV .Q0M [facility] Rx#:[id number] Oral 220 Output: Chest Tube Drainage 80 180 110 Chest Tube Left 35 100 60 Chest Tube Right Pleural/ 45 80 50 Mediastinal Drainage 40 15 L. leg FARHAT 40 15 Urine 280 295 555 Other: Voiding Method Indwelling Catheter Indwelling Catheter Indwelling Catheter ABP, PAP, CO, CI - Last Documented Arterial Blood Pressure 116/48 Pulmonary Artery Pressure 28/15 Cardiac Output 5.8 Cardiac Index 2.9 - Exam CONSTITUTIONAL: Sitting up to the bedside chair in the intensive care unit, appears comfortable, cooperative, no apparent acute distress. HEENT: Neck is supple, no JVD, no lymphadenopathy. Right IJ Cordis in place and functioning. RESPIRATORY: Lungs sounds essentially clear throughout, diminished to his bilateral bases. Respirations are symmetrical and nonlabored. Currently on room air with oxygen saturations 96%. Able to achieve 500-750 mL on their incentive spirometry. Strong cough. CARDIOVASCULAR: Regular rhythm and rate. S1 and S2 present, negative for S3, gallop or murmur. Sternum is stable. Palpable peripheral pulses bilaterally, trace edema to his bilateral lower extremities. No calf pain or tenderness noted. Heart hugger in place with patient demonstrating appropriate use. Knee- high CHARLES hose and sequential compression devices in place to his bilateral lower extremities. GASTROINTESTINAL: Abdomen soft, nontender, nondistended. Active bowel sounds present 4 quadrants. Tolerating diet. Passing flatus. No guarding or rigidity. GENITOURINARY: Fisher present draining clear, yellow urine. 230 mL of urine output in the last 8 hours. INTEGUMENTARY: Skin is warm and dry with no evidence of clubbing or cyanosis. Midline sternal incision clean dry and well approximated, covered with dry i ntact dressing. Left lower extremity EVH sites well approximated without redness or drainage. Left arm radial artery harvest sites clean, dry and approximated. No drainage or redness is present. NEUROLOGIC: Cranial nerves II through XII intact. No focal deficits. MUSKULOSKELETAL: Able to move all extremities, strength equal bilaterally. PSYCHIATRIC: Alert and oriented to person place and time, appropriate affect, intact judgment and insight. INVASIVE LINES AND TUBES: Mediastinal/left pleural chest tubes present and connected to low continuous wall suction, no air leaks present. Mediastinal tube with 50 mL of thin serosanguineous drainage overnight, 180 mL output in the last 24 hours. Left pleural chest tube with 80 mL of thin serosanguineous drainage overnight, 150 mL output in the last 24 hours. Atrial epicardial pacemaker wires present, connected to generator, AAI backup rate 50 bpm. Right internal jugular Cordis, right radial arterial line present. Last CVP 9 mmHg. Left leg FARHAT drain in place with scant thin serosanguineous drainage - Allied health notes Allied health notes reviewed: nursing - Labs CBC & Chem 7: 05/16/23 05:22 05/16/23 05:22 Labs: Abnormal Lab Results - Last 24 Hours (Table) 05/09/23 05/15/23 05/15/23 Range/Units 12:51 20:09 20:09 RBC (4.30-5.90) m/uL Hgb (13.0-17.5) gm/dL Hct (39.0-53.0) % MCHC (31.0-37.0) g/dL Plt Count (150-450) k/uL Neutrophils # (1.3-7.7) k/uL Lymphocytes # (1.0-4.8) k/uL Sodium 136 L (137-145) mmol/L Carbon Dioxide (22-30) mmol/L BUN 25 H (9-20) mg/dL Glucose 198 H (74-99) mg/dL POC Glucose (mg/dL) (70-110) mg/dL Hemoglobin A1c (<=6.0) % Calcium 7.8 L (8.4-10.2) mg/dL Magnesium 2.4 H (1.6-2.3) mg/dL Total Protein 5.1 L (6.3-8.2) g/dL Albumin 3.3 L (3.5-5.0) g/dL Crossmatch See Detail 05/15/23 05/16/23 05/16/23 Range/Units 20:48 05:22 05:22 RBC 2.53 L (4.30-5.90) m/uL Hgb 7.8 L D (13.0-17.5) gm/dL Hct 20.8 L (39.0-53.0) % MCHC 37.5 H (31.0-37.0) g/dL Plt Count 68 L (150-450) k/uL Neutrophils # 8.4 H (1.3-7.7) k/uL Lymphocytes # 0.9 L (1.0-4.8) k/uL Sodium (137-145) mmol/L Carbon Dioxide (22-30) mmol/L BUN (9-20) mg/dL Glucose (74-99) mg/dL POC Glucose (mg/dL) 222 H (70-110) mg/dL Hemoglobin A1c 8.7 H (<=6.0) % Calcium (8.4-10.2) mg/dL Magnesium (1.6-2.3) mg/dL Total Protein (6.3-8.2) g/dL Albumin (3.5-5.0) g/dL Crossmatch 05/16/23 05/16/23 05/16/23 Range/Units 05:22 06:43 11:41 RBC (4.30-5.90) m/uL Hgb (13.0-17.5) gm/dL Hct (39.0-53.0) % MCHC (31.0-37.0) g/dL Plt Count (150-450) k/uL Neutrophils # (1.3-7.7) k/uL Lymphocytes # (1.0-4.8) k/uL Sodium 134 L (137-145) mmol/L Carbon Dioxide 21 L (22-30) mmol/L BUN 28 H (9-20) mg/dL Glucose 230 H (74-99) mg/dL POC Glucose (mg/dL) 259 H 418 H (70-110) mg/dL Hemoglobin A1c (<=6.0) % Calcium 7.9 L (8.4-10.2) mg/dL Magnesium (1.6-2.3) mg/dL Total Protein 5.0 L (6.3-8.2) g/dL Albumin 3.2 L (3.5-5.0) g/dL Crossmatch 05/16/23 05/16/23 Range/Units 11:42 16:29 RBC (4.30-5.90) m/uL Hgb (13.0-17.5) gm/dL Hct (39.0-53.0) % MCHC (31.0-37.0) g/dL Plt Count (150-450) k/uL Neutrophils # (1.3-7.7) k/uL Lymphocytes # (1.0-4.8) k/uL Sodium (137-145) mmol/L Carbon Dioxide (22-30) mmol/L BUN (9-20) mg/dL Glucose (74-99) mg/dL POC Glucose (mg/dL) 444 H 285 H (70-110) mg/dL Hemoglobin A1c (<=6.0) % Calcium (8.4-10.2) mg/dL Magnesium (1.6-2.3) mg/dL Total Protein (6.3-8.2) g/dL Albumin (3.5-5.0) g/dL Crossmatch - Imaging and Cardiology Chest x-ray: report reviewed, image reviewed Assessment and Plan Assessment: Triple-vessel coronary artery disease, status post coronary artery bypass grafting surgery 5 vessels Dyspnea on exertion, secondary to above Hyperlipidemia, cholesterol 330, triglycerides 184, LDL 242, recently started on Crestor Type 2 diabetes, hemoglobin A1c 9.7%, recently started on Mounjaro Lifetime nonsmoker Postoperative acute blood loss anemia, expected given hemodilution and cardiopulmonary bypass Plan: Continue to maximize medical therapy with aspirin, Plavix, statin, beta zhou. Will increase metoprolol tartrate 25 mg by mouth twice a day. Continue amiodarone IV drip per protocol, start amiodarone 400 mg by mouth twice a day. Will start oral calcium channel zhou for radial artery spasm prophylaxis when blood pressure is able to tolerate. Cardizem 30 mg by mouth every 8 hours. Encourage incentive spirometry use 10 times every hour while awake. Bronchodilators per pulmonology. Increase activity, ambulate as tolerated. PT/OT/cardiac rehab following. Will monitor daily labs and x-rays. Electrolyte replacement per protocol. GI/DVT prophylaxis. Pain control with current medication regimen. Discontinue Toradol. Insulin management per internal medicine. Patient is diabetic, preoperative hemoglobin A1c 9.6%. Needs tight blood sugar control to promote healing and prevent infection Discontinue Cordis. We will remove his mediastinal/left pleural chest tubes. Will discontinue FARHAT drain to his left leg. Remove fisher, continue to record strict and accurate I & O's, May bladder scan every 6 hours and when necessary postvoid residual. Daily weights. Start colchicine 0.6 mg by mouth twice a day. More recommendations to follow based on patient's clinical course. Time with Patient: Greater than 30
[2023-05-16 20:13] LABS: Glucose,Whole Blood 282 mg/dL (70-110)
[2023-05-16] MEDS: SENNOSIDES-DOCUSATE SODIUM 1 EACH TAB PO SCH (20:27)
[2023-05-17] MEDS: DILTIAZEM ORAL 30 MG TAB PO SCH ×3 (01:00→17:47)
--- NOTE | 2023-05-17 04:42 | XR ---
EXAMINATION TYPE: XR chest 2V DATE OF EXAM: 05/17/2023 COMPARISON: NONE HISTORY: CABG. TECHNIQUE: Frontal and lateral views of the chest are obtained. IMPRESSION: There are midline sternotomy wires. The cardiac silhouette is moderately enlarged. An atrial clip is present. There is some scattered diffuse interstitial changes and platelike bands of opacities in the lung bas es which are likely atelectasis. Trace pleural effusions are present.
[2023-05-17 06:32] LABS: Basophils % (A) 0 %; Eosinophils % (A) 0 %; HCT 21.4 % (39.0-53.0); HGB 7.5 gm/dL (13.0-17.5); Lymphocytes # (A) 0.9 k/uL (1.0-4.8); Lymphocytes % (A) 10 %; MCH 29.2 pg (25.0-35.0); MCV 83.3 fL (80.0-100.0); Mean Platelet Volume 11.6; Monocytes # (A) 0.6 k/uL (0-1.0); Monocytes % (A) 7 %; Neutrophils # (A) 7.6 k/uL (1.3-7.7); Neutrophils % (A) 81 %; RBC 2.57 m/uL (4.30-5.90); RDW 12.7 % (11.5-15.5); WBC 9.3 k/uL (3.8-10.6)
[2023-05-17 06:36] LABS: Glucose,Whole Blood 255 mg/dL (70-110)
[2023-05-17 06:36] LABS: Platelet Count 92 k/uL (150-450)
[2023-05-17] MEDS: INSULIN ASPART (NovoLOG) 100 UNIT/ML VIAL SQ SCH ×4 (06:53→20:33)
[2023-05-17] MEDS: PANTOPRAZOLE 40 MG TABLET PO SCH (06:53)
[2023-05-17] MEDS ORDERED: INSULIN DETEMIR (LEVEMIR) 100 UNIT/ML SYR SQ SCH (07:00)
[2023-05-17 07:38] LABS: ALT 16 U/L (4-49); AST 30 U/L (17-59); African American GFR (CKD) >90 (>60 ml/min/1.73 sqM); Alkaline Phosphatase 63 U/L (38-126); Anion Gap 7 mmol/L; Blood Urea Nitrogen 27 mg/dL (9-20); Carbon Dioxide 25 mmol/L (22-30); Chloride 103 mmol/L (98-107); Glucose 222 mg/dL (74-99); Non-African American GFR(CKD) 88 (>60 ml/min/1.73 sqM); Potassium 4.3 mmol/L (3.5-5.1); Sodium 135 mmol/L (137-145); Total Protein 5.1 g/dL (6.3-8.2)
[2023-05-17] MEDS: COLCHICINE 0.6 MG EACH PO SCH ×2 (07:49→20:34)
[2023-05-17] MEDS: ATORVASTATIN 40 MG TAB PO SCH (07:49)
[2023-05-17] MEDS: CLOPIDOGREL 75 MG TAB PO SCH (07:49)
[2023-05-17] MEDS: ASPIRIN 325 MG TAB PO SCH (07:49)
[2023-05-17] MEDS: METOPROLOL TARTRATE 25 MG TAB PO SCH ×2 (07:50→20:34)
[2023-05-17] MEDS: AMIODARONE 200 MG TAB PO SCH ×2 (07:50→20:34)
--- NOTE | 2023-05-17 07:50 | P.PN ---
Subjective Progress Note Date: 05/17/23 PROGRESS NOTE The patient is a 57-year-old male who underwent CABG today. He was recently seen in our office with newly diagnosed hyperlipidemia, he had diabetes not treated for many years and presented with symptoms of progressive fatigue, dyspnea and had an abnormal stress test. He underwent cardiac catheterization and was found to have calcified left main and proximal LAD with severe triple- vessel CAD. His intubated, sedated but starting to wake up, in sinus mechanism. Hemodynamically stable. There is no evidence of atrial fibrillation or ventricular tachyarrhythmia. His systolic function preoperatively was mildly impaired. May 15: The patient underwent CABG yesterday, he is extubated, sitting up in the chair. Complaining of soreness in the chest. He is in sinus mechanism. He denies any dizziness or palpitations, no nausea. He is on no vasopressors . Urinary output is good. May 16: The patient sitting up in the chair, feels well. He is using his incentive spirometry. He denies any significant chest discomfort. His breathing is stable. He is in sinus mechanism and had multiple PACs earlier, he was started on amiodarone. His EKG shows ST segment elevation consistent with pericarditis. He denies any nausea or vomiting. He is ambulating. May 17: The patient is feeling well, sitting up in the chair. He has mild soreness in the chest. He continues to be in sinus mechanism. His telemetry showed mild ST elevation consistent with pericarditis. He has no nausea or vomiting. He is doing better incentive spirometry. He has been walking. Medications: Metoprolol 25 mg twice a day, aspirin, Plavix 75 mg daily, Lipitor 40 mg daily, amiodarone 400 mg twice a day, diltiazem 30 mg every 8 hours, colchicine 0.6 mg twice a day PHYSICAL EXAMINATION: Blood pressure 114/70 heart rate 98 LUNGS: Mild decreased breath sounds at the base with few crackles HEART: Regular rate and rhythm, S1, S2. No S3. No systolic murmur, plus rub ABDOMEN: Soft, nontender, no organomegaly EXTREMETIES: No edema LAB: Hemoglobin 7.5, WBC 9.3, BUN 27, creatinine 0.97 IMPRESSION: 1. Status post CABG, stable, extubated 2. Hyperlipidemia 3. diabetes mellitus 4. Mild cardiomyopathy preoperatively 5. Probable postoperative pericarditis PLAN: 1. Continue present therapy 2. Start low dose VIKI inhibitor 3. Increase physical activity 4. Incentive spirometry Objective - Vital Signs Vital signs: Vital Signs Temp 97.9 F 05/17/23 04:00 Pulse 92 05/17/23 07:00 Resp 26 H 05/17/23 07:00 BP 114/70 05/17/23 07:00 Pulse Ox 97 05/17/23 07:00 FiO2 50 05/14/23 17:38 Intake & Output 05/16/23 05/17/23 05/17/23 18:59 06:59 18:59 Intake Total 526 Output Total 665 510 0 Balance -139 -510 0 Weight 94.075 kg Intake: IV 526 Pressure bags 36 Sodium Chloride 0.9% 1, 490 000 ml @ 50 mls/hr IV . Q20H [facility] Rx#:[id number] Output: Chest Tube Drainage 110 Chest Tube Left 60 Chest Tube Right Pleural/ 50 Mediastinal Drainage 10 L. leg FARHAT 10 Urine 555 500 0 Other: Voiding Method Indwelling Catheter Indwelling Catheter ABP, PAP, CO, CI - Last Documented Arterial Blood Pressure 116/48 Pulmonary Artery Pressure 28/15 Cardiac Output 5.8 Cardiac Index 2.9 - Labs CBC & Chem 7: 05/17/23 05:36 05/17/23 05:36 Labs: Abnormal Lab Results - Last 24 Hours (Table) 05/16/23 05/16/23 05/16/23 Range/Units 05:22 11:41 11:42 RBC (4.30-5.90) m/uL Hgb (13.0-17.5) gm/dL Hct (39.0-53.0) % Plt Count (150-450) k/uL Lymphocytes # (1.0-4.8) k/uL Sodium (137-145) mmol/L BUN (9-20) mg/dL Glucose (74-99) mg/dL POC Glucose (mg/dL) 418 H 444 H (70-110) mg/dL Hemoglobin A1c 8.7 H (<=6.0) % Calcium (8.4-10.2) mg/dL Total Protein (6.3-8.2) g/dL Albumin (3.5-5.0) g/dL 05/16/23 05/16/23 05/17/23 Range/Units 16:29 20:11 05:36 RBC 2.57 L (4.30-5.90) m/uL Hgb 7.5 L (13.0-17.5) gm/dL Hct 21.4 L (39.0-53.0) % Plt Count 92 L (150-450) k/uL Lymphocytes # 0.9 L (1.0-4.8) k/uL Sodium (137-145) mmol/L BUN (9-20) mg/dL Glucose (74-99) mg/dL POC Glucose (mg/dL) 285 H 282 H (70-110) mg/dL Hemoglobin A1c (<=6.0) % Calcium (8.4-10.2) mg/dL Total Protein (6.3-8.2) g/dL Albumin (3.5-5.0) g/dL 05/17/23 05/17/23 Range/Units 05:36 06:35 RBC (4.30-5.90) m/uL Hgb (13.0-17.5) gm/dL Hct (39.0-53.0) % Plt Count (150-450) k/uL Lymphocytes # (1.0-4.8) k/uL Sodium 135 L (137-145) mmol/L BUN 27 H (9-20) mg/dL Glucose 222 H (74-99) mg/dL POC Glucose (mg/dL) 255 H (70-110) mg/dL Hemoglobin A1c (<=6.0) % Calcium 8.0 L (8.4-10.2) mg/dL Total Protein 5.1 L (6.3-8.2) g/dL Albumin 3.0 L (3.5-5.0) g/dL
[2023-05-17] MEDS: FONDAPARINUX 2.5 MG/0.5 ML SYRINGE SQ SCH (07:51)
[2023-05-17] MEDS: IPRATROPIUM-ALBUTEROL 3 ML NEB INHALATION SCH ×4 (08:38→20:08)
[2023-05-17 11:26] LABS: Glucose,Whole Blood 254 mg/dL (70-110)
--- NOTE | 2023-05-17 13:37 | P.PN ---
Subjective Progress Note Date: 05/17/23 Principal diagnosis: Multivessel coronary artery disease, status post CABG, postoperative day #3 This is a 57-year-old male patient with a known history of hyperlipidemia, diabetes mellitus, lifelong nonsmoker who had undergone a cardiac catheterization on 05/09/2023 and was found to have significant triple-vessel coronary artery disease and was recommended surgical revascularization. He was brought in today 05/14/2023 for surgery. He is seen in the immediate postoperative period in the intensive care unit. He is intubated and on mechanical ventilator rate of 14, tidal volume 500, FiO2 100% and a PEEP of 5. He has a mediastinal chest tube, left pleural chest tube. Lyon-Ange catheter in place via the right IJ. Pacer wires in place. Cardiac output 4.7. Cardiac i ndex 2.4. PA pressures 32/20. CVP 13. Currently in sinus rhythm. He has a nitroglycerin drip at 5 mcg/m. Insulin drip at 2 units per hour. Chest x-ray shows proper positioning of tubes and lines. No acute opacities or infiltrates. Labs pending. ABGs pending. Patient was reevaluated today on 05/15/2023, patient was extubated last night a few hours after he arrived to the ICU uneventfully, he is on 3 L nasal cannula with O2 saturation 99%, blood pressure seems to be a bit soft 94/38. Patient does not seem to be in any distress. Continues to have mediastinal and chest tube in place. He is on insulin drip at 3 units per hour chest x-ray today is reassuring. Post CABG changes, could not appreciate any pneumothorax as noted by the radiologist he does have a bit of a mild pulmonary vascular congestion. WBC count is 12.6 and 9.8 electrolytes are normal renal profile is normal Reevaluated today on 05/16/2023, patient is still in ICU, doing well, he is on 2 L nasal cannula, on amiodarone drip denies any shortness of breath or wheezing, noted to have some ST elevation, and felt that the patient may have some component of pericarditis and colchicine was started. His IV fluids at KVO, his chest x-ray is showing postoperative changes, minimal left basilar atelectasis, no evidence of congestive heart failure. CBC is relatively normal except for hemoglobin of 7.8 and left lites are normal renal profile is normal patient has been ambulating today in the hallway, however he had difficulty with incentive spirometry. Patient was reevaluated today on 05/17/2023, remains you, he is on room air, patient is ambulating well on his own in the hallway, his chest x-ray is reassuring, mostly postoperative changes, no acute pulmonary disease noted. His incentive spirometry is getting better just over 1 L. His pleural and mediastinal tubes has been removed. Patient is in sinus rhythm, hemodynamically stable, hemoglobin today is 7.5 electrodes are normal renal profile done. Pat ient is relatively asymptomatic, Objective - Vital Signs Vital signs: Vital Signs Temp 97.9 F 05/17/23 12:00 Pulse 85 05/17/23 12:42 Resp 25 H 05/17/23 12:00 BP 105/63 05/17/23 12:00 Pulse Ox 97 05/17/23 12:00 FiO2 21 05/17/23 08:50 Intake & Output 05/16/23 05/17/23 05/17/23 18:59 06:59 18:59 Intake Total 526 270 Output Total 665 510 400 Balance -139 -510 -130 Weight 94.075 kg Intake: IV 526 10 Invasive Line 1 10 Pressure bags 36 Sodium Chloride 0.9% 1, 490 000 ml @ 50 mls/hr IV . Q20H [facility] Rx#:[id number] Oral 260 Output: Chest Tube Drainage 110 Chest Tube Left 60 Chest Tube Right Pleural/ 50 Mediastinal Drainage 10 L. leg FARHAT 10 Urine 555 500 400 Other: Voiding Method Indwelling Catheter Indwelling Catheter # Voids 1 ABP, PAP, CO, CI - Last Documented Arterial Blood Pressure 116/48 Pulmonary Artery Pressure 28/15 Cardiac Output 5.8 Cardiac Index 2.9 - Exam GENERAL EXAM: Revealed 57-year-old white male pleasant in no distress on room air HEAD: Normocephalic. EENT: PERRLA, EOMI, nonicteric, no neck masses, no JVD. CHEST: Surgical dressing dry and intact. Heart regular rate and rhythm, Tubes have been removed. LUNGS: Diminished breath sounds and crackles at the bases CVS: S1 and S2 normal with no audible murmur, regular rhythm. ABDOMEN: Soft nontender no megaly no rebound no guarding. SKIN: No rashes CENTRAL NERVOUS SYSTEM: Alert and oriented 3 no gross focal deficit EXTREMITIES: No clubbing edema or cyanosis. Psychiatric: Normal mood affect and normal mental status examination - Labs CBC & Chem 7: 05/17/23 05:36 05/17/23 05:36 Labs: Abnormal Lab Results - Last 24 Hours (Table) 05/16/23 05/16/23 05/17/23 Range/Units 16:29 20:11 05:36 RBC 2.57 L (4.30-5.90) m/uL Hgb 7.5 L (13.0-17.5) gm/dL Hct 21.4 L (39.0-53.0) % Plt Count 92 L (150-450) k/uL Lymphocytes # 0.9 L (1.0-4.8) k/uL Sodium (137-145) mmol/L BUN (9-20) mg/dL Glucose (74-99) mg/dL POC Glucose (mg/dL) 285 H 282 H (70-110) mg/dL Calcium (8.4-10.2) mg/dL Total Protein (6.3-8.2) g/dL Albumin (3.5-5.0) g/dL 05/17/23 05/17/23 05/17/23 Range/Units 05:36 06:35 11:24 RBC (4.30-5.90) m/uL Hgb (13.0-17.5) gm/dL Hct (39.0-53.0) % Plt Count (150-450) k/uL Lymphocytes # (1.0-4.8) k/uL Sodium 135 L (137-145) mmol/L BUN 27 H (9-20) mg/dL Glucose 222 H (74-99) mg/dL POC Glucose (mg/dL) 255 H 254 H (70-110) mg/dL Calcium 8.0 L (8.4-10.2) mg/dL Total Protein 5.1 L (6.3-8.2) g/dL Albumin 3.0 L (3.5-5.0) g/dL Assessment and Plan Assessment: Impression: Coronary artery disease, status post coronary artery bypass grafting x 5 with a PELAYO to the diagonal 2 to the LAD, left radial to the OM1 to the Diag 1, saphenous vein graft to the RCA. Postoperative day #3 Type 2 diabetes Dyslipidemia Lifelong nonsmoker Postoperative atelectasis, expected. Recommendation: Continue ambulation and incentive spirometry Maximize medical therapy including aspirin statins and Plavix and beta blockers Continue amiodarone Continue GI and DVT prophylaxis We'll continue to follow Time with Patient: Less than 30
--- NOTE | 2023-05-17 13:39 | P.PN ---
Subjective Progress Note Date: 05/17/23 patient is a 57-year-old gentleman with past medical history significant for hyperlipidemia, diabetes mellitus, lifelong nonsmoker who presented to the hospital for elective CABG on 05/14. Patient underwent cardiac catheterization on 05/09/2023 and was found to have significant triple-vessel coronary artery disease and was recommended surgical revascularization. Patient underwent CABG on 05/14. Postoperatively patient was monitored in the ICU, initially was intubated and was on mechanical ventilation. Patient was extubated yesterday. Medicine team was consulted for medical management 05/16. Patient seen and examined. Patient sitting upright in the chair. States he is passing gas. Tolerating diet. Patient ambulatory in the hallway this morning. 05/17. Patient seen and examined. Patient chest tubes and mediastinal tubes have been removed. Blood sugars are running in 200s, we'll increase Levemir to 5 units twice a day REVIEW OF SYSTEMS: CONSTITUTIONAL: No fever, no malaise,. CARDIOVASCULAR: No chest pain, no palpitations, no syncope. PULMONARY: No shortness of breath, no cough, GASTROINTESTINAL: No diarrhea, no nausea, no vomiting, no abdominal pain. NEUROLOGICAL: No headaches, no weakness, PHYSICAL EXAMINATION: GENERAL: The patient is alert and oriented x3, not in any acute distress. Well developed, well nourished. HEENT: Pupils are round and equally reacting to light. EOMI. No scleral icterus. No conjunctival pallor. Normocephalic, atraumatic. No pharyngeal erythema. No thyromegaly. CARDIOVASCULAR: S1 and S2 present. No murmurs, rubs, or gallops. PULMONARY: Diminished breath sounds at the bases bilaterally ABDOMEN: Soft, nontender, nondistended, normoactive bowel sounds. No palpable organomegaly. MUSCULOSKELETAL: No joint swelling or deformity. EXTREMITIES: No cyanosis, clubbing, or pedal edema. NEUROLOGICAL: Gross neurological examination did not reveal any focal deficits. SKIN: No rashes. Assessment and plan Coronary artery disease, status post CABG with a PELAYO to the diagonal 2 to the LAD, left radial to the OM1 to the Diag 1, saphenous vein graft to the RCA. Diabetes mellitus Hyperlipidemia Lifelong nonsmoker Monitor vital signs Monitor CBC Monitor CMP Continue telemetry monitoring Aggressive bronchopulmonary hygiene Encourage use of I-S Continue aspirin, Lipitor Continue Plavix Continue Cardizem monitor blood sugar levels, last HbA1c level was 8.7. continue sliding scale insulin, increase Levemir to 5 units twice a day Continue postop care per cardiac surgery Critical care following Labs and medication were reviewed.. Continue same treatment. Continue with symptomatic treatment. Resume home medication. Monitor labs and vitals. DVT and GI prophylaxis. Further recommendations as per clinical course of the patient Dictation was produced using [employer] dictation software. please excuse any grammatical, word or spelling errors. Objective - Vital Signs Vital signs: Vital Signs Temp 97.9 F 05/17/23 12:00 Pulse 93 05/17/23 13:00 Resp 13 05/17/23 13:00 BP 115/68 05/17/23 13:00 Pulse Ox 97 05/17/23 13:00 FiO2 21 05/17/23 08:50 Intake & Output 05/16/23 05/17/23 05/17/23 18:59 06:59 18:59 Intake Total 526 270 Output Total 665 510 400 Balance -139 -510 -130 Weight 94.075 kg Intake: IV 526 10 Invasive Line 1 10 Pressure bags 36 Sodium Chloride 0.9% 1, 490 000 ml @ 50 mls/hr IV . Q20H [facility] Rx#:[id number] Oral 260 Output: Chest Tube Drainage 110 Chest Tube Left 60 Chest Tube Right Pleural/ 50 Mediastinal Drainage 10 L. leg FARHAT 10 Urine 555 500 400 Other: Voiding Method Indwelling Catheter Indwelling Catheter # Voids 1 ABP, PAP, CO, CI - Last Documented Arterial Blood Pressure 116/48 Pulmonary Artery Pressure 28/15 Cardiac Output 5.8 Cardiac Index 2.9 - Labs CBC & Chem 7: 05/17/23 05:36 05/17/23 05:36 Labs: Abnormal Lab Results - Last 24 Hours (Table) 05/16/23 05/16/23 05/17/23 Range/Units 16:29 20:11 05:36 RBC 2.57 L (4.30-5.90) m/uL Hgb 7.5 L (13.0-17.5) gm/dL Hct 21.4 L (39.0-53.0) % Plt Count 92 L (150-450) k/uL Lymphocytes # 0.9 L (1.0-4.8) k/uL Sodium (137-145) mmol/L BUN (9-20) mg/dL Glucose (74-99) mg/dL POC Glucose (mg/dL) 285 H 282 H (70-110) mg/dL Calcium (8.4-10.2) mg/dL Total Protein (6.3-8.2) g/dL Albumin (3.5-5.0) g/dL 05/17/23 05/17/23 05/17/23 Range/Units 05:36 06:35 11:24 RBC (4.30-5.90) m/uL Hgb (13.0-17.5) gm/dL Hct (39.0-53.0) % Plt Count (150-450) k/uL Lymphocytes # (1.0-4.8) k/uL Sodium 135 L (137-145) mmol/L BUN 27 H (9-20) mg/dL Glucose 222 H (74-99) mg/dL POC Glucose (mg/dL) 255 H 254 H (70-110) mg/dL Calcium 8.0 L (8.4-10.2) mg/dL Total Protein 5.1 L (6.3-8.2) g/dL Albumin 3.0 L (3.5-5.0) g/dL
--- NOTE | 2023-05-17 13:45 | P.PN ---
Subjective Progress Note Date: 05/17/23 Principal diagnosis: Multivessel coronary artery disease. Past medical history significant for type 2 diabetes mellitus, hyperlipidemia and is a lifetime nonsmoker. POD #3 coronary artery bypass grafting 5 vessels with left internal mammary artery as a sequential to the diagonal coronary artery and left anterior descending coronary artery, left radial artery as a sequential to the diagonal #1 coronary artery and to the obtuse marginal #1 coronary artery, and a reverse saphenous vein graft to the right coronary artery. Endoscopic harvesting of the left radial artery and left greater saphenous vein, exclusion of the left atrial appendage using a 35 mm Atriclip, intraoperative epi-aortic ultrasound, graft flow measurements using the [employer] Systems[employer] flowmeter system, and intraoperative transesophageal echocardiogram performed by anesthesia. Postoperative acute blood loss anemia, expected given hemodilution and cardiopulmonary bypass. The patient was seen and examined in follow-up today 05/17/2023 at his bedside in the intensive care unit. Currently he is sitting up to the bedside chair, is awake, alert, oriented 3 and is in no acute apparent distress. Denies any c omplaints of pain or shortness of breath at this time. Bedside telemetry is showing normal sinus rhythm heart rate 81 BPM. Oxygen saturations are 98% on room air and he is achieving 1000 mL on his incentive spirometry with encouragement. He remains hemodynamically stable and is currently on no in otropic or pressor support. Right IJ Cordis, Fisher catheter and mediastinal chest tube and pleural chest tubes were removed yesterday without incident. Atrial epicardial pacemaker wires remain in place and are grounded. The patient reports he has been up ambulating in the intensive care unit hallway with assistance from nursing and therapy staff and has been tolerating well. Chest x-ray and laboratory results reviewed. Objective - Vital Signs Vital signs: Vital Signs Temp 97.9 F 05/17/23 12:00 Pulse 85 05/17/23 12:42 Resp 25 H 05/17/23 12:00 BP 105/63 05/17/23 12:00 Pulse Ox 97 05/17/23 12:00 FiO2 21 05/17/23 08:50 Intake & Output 05/16/23 05/17/23 05/17/23 18:59 06:59 18:59 Intake Total 526 270 Output Total 665 510 400 Balance -139 -510 -130 Weight 94.075 kg Intake: IV 526 10 Invasive Line 1 10 Pressure bags 36 Sodium Chloride 0.9% 1, 490 000 ml @ 50 mls/hr IV . Q20H [facility] Rx#:[id number] Oral 260 Output: Chest Tube Drainage 110 Chest Tube Left 60 Chest Tube Right Pleural/ 50 Mediastinal Drainage 10 L. leg FARHAT 10 Urine 555 500 400 Other: Voiding Method Indwelling Catheter Indwelling Catheter # Voids 1 ABP, PAP, CO, CI - Last Documented Arterial Blood Pressure 116/48 Pulmonary Artery Pressure 28/15 Cardiac Output 5.8 Cardiac Index 2.9 - Exam CONSTITUTIONAL: Sitting up to the bedside chair in the intensive care unit, appears comfortable, cooperative, no apparent acute distress. HEENT: Neck is supple, no JVD, no lymphadenopathy. RESPIRATORY: Lungs sounds essentially clear throughout, diminished to his bilateral bases. Respirations are symmetrical and nonlabored. Currently on room air with oxygen saturations 98%. Able to achieve 1000 mL on their incentive spirometry. Strong cough. CARDIOVASCULAR: Regular rhythm and rate. S1 and S2 present, negative for S3, gallop or murmur. Sternum is stable. Palpable peripheral pulses bilaterally, trace edema to his bilateral lower extremities. No calf pain or tenderness noted. Heart hugger in place with patient demonstrating appropriate use. Knee- high CHARLES hose and sequential compression devices in place to his bilateral lower extremities. GASTROINTESTINAL: Abdomen soft, nontender, nondistended. Active bowel sounds present 4 quadrants. Tolerating diet. Passing flatus. No guarding or rigidity. GENITOURINARY: Continues to void. 400 mL of urine output in the last 8 hours. INTEGUMENTARY: Skin is warm and dry with no evidence of clubbing or cyanosis. Midline sternal incision clean dry and well approximated, covered with dry intact dressing. Left lower extremity EVH sites well approximated without redness or drainage. Left arm radial artery harvest sites clean, dry and approximated. No drainage or redness is present. NEUROLOGIC: Cranial nerves II through XII intact. No focal deficits. MUSKULOSKELETAL: Able to move all extremities, strength equal bilaterally. PSYCHIATRIC: Alert and oriented to person place and time, appropriate affect, intact judgment and insight. INVASIVE LINES AND TUBES: Atrial epicardial pacemaker wires present, and is grounded. - Allied health notes Allied health notes reviewed: nursing - Labs CBC & Chem 7: 05/17/23 05:36 05/17/23 05:36 Labs: Abnormal Lab Results - Last 24 Hours (Table) 05/16/23 05/16/23 05/17/23 Range/Units 16:29 20:11 05:36 RBC 2.57 L (4.30-5.90) m/uL Hgb 7.5 L (13.0-17.5) gm/dL Hct 21.4 L (39.0-53.0) % Plt Count 92 L (150-450) k/uL Lymphocytes # 0.9 L (1.0-4.8) k/uL Sodium (137-145) mmol/L BUN (9-20) mg/dL Glucose (74-99) mg/dL POC Glucose (mg/dL) 285 H 282 H (70-110) mg/dL Calcium (8.4-10.2) mg/dL Total Protein (6.3-8.2) g/dL Albumin (3.5-5.0) g/dL 05/17/23 05/17/23 05/17/23 Range/Units 05:36 06:35 11:24 RBC (4.30-5.90) m/uL Hgb (13.0-17.5) gm/dL Hct (39.0-53.0) % Plt Count (150-450) k/uL Lymphocytes # (1.0-4.8) k/uL Sodium 135 L (137-145) mmol/L BUN 27 H (9-20) mg/dL Glucose 222 H (74-99) mg/dL POC Glucose (mg/dL) 255 H 254 H (70-110) mg/dL Calcium 8.0 L (8.4-10.2) mg/dL Total Protein 5.1 L (6.3-8.2) g/dL Albumin 3.0 L (3.5-5.0) g/dL - Imaging and Cardiology Chest x-ray: report reviewed, image reviewed Assessment and Plan Assessment: Triple-vessel coronary artery disease, status post coronary artery bypass grafting surgery 5 vessels Dyspnea on exertion, secondary to above Hyperlipidemia, cholesterol 330, triglycerides 184, LDL 242, recently started on Crestor Type 2 diabetes, hemoglobin A1c 9.7%, recently started on Mounjaro Lifetime nonsmoker Mild cardiopathy preoperatively Postoperative acute blood loss anemia, expected given hemodilution and cardiopulmonary bypass Plan: Continue to maximize medical therapy with aspirin, Plavix, statin, beta zhou. Will increase metoprolol tartrate as tolerated, currently on 25 mg by mouth twice a day. Continue amiodarone 400 mg by mouth twice a day for atrial fibrillation prophylaxis. Continue calcium channel zhou for radial artery spasm prophylaxis when blood pressure is able to tolerate. Cardizem 30 mg by mouth every 8 hours. Encourage incentive spirometry use 10 times every hour while awake. Bronchodilators per pulmonology. Increase activity, ambulate as tolerated. PT/OT/cardiac rehab following. Will monitor daily labs and x-rays. Electrolyte replacement per protocol. GI/DVT prophylaxis. Pain control with current medication regimen. Discontinue Toradol. Insulin management per internal medicine. Patient is diabetic, preoperative hemoglobin A1c 9.6%. Needs tight blood sugar control to promote healing and prevent infection The patient was started on lisinopril 2.5 mg by mouth daily by cardiology for afterload reduction. Atrial epicardial pacemaker wires were removed without incident. Bed rest for 1 hour post pacemaker wire removal. Remove fisher, continue to record strict and accurate I & O's, May bladder scan every 6 hours and when necessary postvoid residual. Daily weights. Continue colchicine 0.6 mg by mouth twice a day, for possible pericarditis. We will put transfer orders and two third for cardiac stepdown unit. Discharge planning is in place. More recommendations to follow based on patient's clinical course. Time with Patient: Greater than 30
[2023-05-17 16:12] LABS: Glucose,Whole Blood 253 mg/dL (70-110)
[2023-05-17 19:53] LABS: Glucose,Whole Blood 226 mg/dL (70-110)
[2023-05-17] MEDS: INSULIN DETEMIR (LEVEMIR) 100 UNIT/ML SYR SQ SCH (20:33)
[2023-05-17] MEDS: SENNOSIDES-DOCUSATE SODIUM 1 EACH TAB PO SCH (20:34)
[2023-05-18] MEDS: DILTIAZEM ORAL 30 MG TAB PO SCH ×3 (00:05→16:52)
[2023-05-18] MEDS: ACETAMINOPHEN TAB 500 MG TAB PO PRN ×2 (00:06→20:19)
[2023-05-18 06:35] LABS: Glucose,Whole Blood 216 mg/dL (70-110)
[2023-05-18] MEDS: INSULIN DETEMIR (LEVEMIR) 100 UNIT/ML SYR SQ SCH ×2 (06:42→20:04)
[2023-05-18] MEDS: INSULIN ASPART (NovoLOG) 100 UNIT/ML VIAL SQ SCH ×4 (06:42→20:03)
[2023-05-18] MEDS: PANTOPRAZOLE 40 MG TABLET PO SCH (06:42)
[2023-05-18 06:52] LABS: African American GFR (CKD) >90 (>60 ml/min/1.73 sqM); Anion Gap 6 mmol/L; Blood Urea Nitrogen 29 mg/dL (9-20); Calcium 7.7 mg/dL (8.4-10.2); Carbon Dioxide 24 mmol/L (22-30); Chloride 103 mmol/L (98-107); Glucose 177 mg/dL (74-99); Non-African American GFR(CKD) 89 (>60 ml/min/1.73 sqM); Sodium 133 mmol/L (137-145)
[2023-05-18 07:05] LABS: HCT 21.1 % (39.0-53.0); HGB 7.5 gm/dL (13.0-17.5); MCH 29.6 pg (25.0-35.0); MCHC 35.3 g/dL (31.0-37.0); MCV 83.8 fL (80.0-100.0); Mean Platelet Volume 10.6; Platelet Count 134 k/uL (150-450); RBC 2.52 m/uL (4.30-5.90); RDW 13.1 % (11.5-15.5); WBC 7.9 k/uL (3.8-10.6)
--- NOTE | 2023-05-18 07:24 | XR ---
EXAMINATION TYPE: XR chest 2V DATE OF EXAM: 05/18/2023 6:29 AM COMPARISON: Chest radiographs from 05/17/2023 TECHNIQUE: XR chest 2V Frontal and lateral views of the chest. CLINICAL INDICATION:Male, 57 years old with history of Postop CABG; FINDINGS: Lungs/Pleura: Trace bilateral pleural effusions with associated atelectasis. No pneumothorax. Pulmonary vascularity: Unremarkable. Heart/mediastinum: Cardiomediastinal silhouette is enlarged and stable. Post CABG changes. Left atri al appendage occlusion devices present. Musculoskeletal: No acute osseous pathology. Midline sternotomy wires are noted and stable. IMPRESSION: Overall stable examination with post CABG changes and trace bilateral pleural effusions with associat ed atelectasis.
[2023-05-18] MEDS: IPRATROPIUM-ALBUTEROL 3 ML NEB INHALATION SCH ×4 (07:41→20:15)
[2023-05-18] MEDS: AMIODARONE 200 MG TAB PO SCH ×2 (08:18→20:03)
[2023-05-18] MEDS: ASPIRIN 325 MG TAB PO SCH (08:18)
[2023-05-18] MEDS: CLOPIDOGREL 75 MG TAB PO SCH (08:18)
[2023-05-18] MEDS: COLCHICINE 0.6 MG EACH PO SCH ×2 (08:18→20:03)
[2023-05-18] MEDS: ATORVASTATIN 40 MG TAB PO SCH (08:18)
[2023-05-18] MEDS: METOPROLOL TARTRATE 25 MG TAB PO SCH ×2 (08:18→20:03)
[2023-05-18] MEDS: FONDAPARINUX 2.5 MG/0.5 ML SYRINGE SQ SCH (08:19)
[2023-05-18] MEDS ORDERED: FUROSEMIDE 10 MG/ML 2 ML VIAL IV ONE (08:33)
[2023-05-18] MEDS ORDERED: POTASSIUM CHLORIDE ER 20 MEQ TAB.ER PO STA (08:33)
--- NOTE | 2023-05-18 08:40 | P.PN ---
Subjective Progress Note Date: 05/18/23 Principal diagnosis: Multivessel coronary artery disease. Past medical history significant for type 2 diabetes mellitus, hyperlipidemia and is a lifetime nonsmoker. POD #4 coronary artery bypass grafting 5 vessels with left internal mammary artery as a sequential to the diagonal coronary artery and left anterior descending coronary artery, left radial artery as a sequential to the diagonal #1 coronary artery and to the obtuse marginal #1 coronary artery, and a reverse saphenous vein graft to the right coronary artery. Endoscopic harvesting of the left radial artery and left greater saphenous vein, exclusion of the left atrial appendage using a 35 mm Atriclip, intraoperative epi-aortic ultrasound, graft flow measurements using the [employer]stim flowmeter system, and intraoperative transesophageal echocardiogram performed by anesthesia. Postoperative acute blood loss anemia, expected given hemodilution and cardiopulmonary bypass. The patient was seen and examined in follow-up today 05/18/2023 at his bedside in the intensive care unit. Transfer orders were placed yesterday for cardiac stepdown unit and he is waiting for bed. Currently he is sitting up to the bed side chair, is awake, alert, oriented 3 and is in no acute apparent distress. Denies any complaints of shortness of breath or pain at this time. Bedside telemetry showing normal sinus rhythm heart rate 64 BPM. Oxygen saturation are 96% on room air and he is achieving 1000 mL on his incentive spirometry with encouragement. He remains hemodynamically stable and is currently on no inotropic pressor support. The patient reports he has been up ambulating in the intensive care unit hallway with standby assistance from nursing staff and therapy staff, tolerating well. Blood sugars in the last 24 hours have been ranging from 216-282, his Levemir was increased to 5 units subcu twice a day. Chest x-ray and laboratory results reviewed. Objective - Vital Signs Vital signs: Vital Signs Temp 98.6 F 05/18/23 04:00 Pulse 64 05/18/23 07:54 Resp 20 05/18/23 04:00 BP 100/52 05/18/23 04:00 Pulse Ox 93 L 05/18/23 04:00 FiO2 21 05/17/23 08:50 Intake & Output 05/17/23 05/18/23 05/18/23 18:59 06:59 18:59 Intake Total 270 240 Output Total 400 600 Balance -130 -360 Weight 93.5 kg Intake: IV 10 Invasive Line 1 10 Oral 260 240 Output: Urine 400 600 Other: Voiding Method Indwelling Catheter Urinal # Voids 1 1 # Bowel Movements 1 ABP, PAP, CO, CI - Last Documented Arterial Blood Pressure 116/48 Pulmonary Artery Pressure 28/15 Cardiac Output 5.8 Cardiac Index 2.9 - Exam CONSTITUTIONAL: Sitting up to the bedside chair in the intensive care unit, appears comfortable, cooperative, no apparent acute distress. HEENT: Neck is supple, no JVD, no lymphadenopathy. RESPIRATORY: Lungs sounds essentially clear throughout, diminished to his bilateral bases. Respirations are symmetrical and nonlabored. Currently on room air with oxygen saturations 96%. Able to achieve 1000 mL on their incentive spirometry. Strong cough. CARDIOVASCULAR: Regular rhythm and rate. S1 and S2 present, negative for S3, gallop or murmur. Sternum is stable. Palpable peripheral pulses bilaterally, trace edema to his bilateral lower extremities. No calf pain or tenderness noted. Heart hugger in place with patient demonstrating appropriate use. Knee- high CHARLES hose and sequential compression devices in place to his bilateral lower extremities. GASTROINTESTINAL: Abdomen soft, nontender, nondistended. Active bowel sounds present 4 quadrants. Tolerating diet. Passing flatus. No guarding or rigidity. Bowel movement this a.m. GENITOURINARY: Continues to void. 600 mL of urine output in the last 8 hours. INTEGUMENTARY: Skin is warm and dry with no evidence of clubbing or cyanosis. Midline sternal incision clean dry and well approximated, covered with dry int act dressing. Left lower extremity EVH sites well approximated without redness or drainage. Left arm radial artery harvest sites clean, dry and approximated. No drainage or redness is present. NEUROLOGIC: Cranial nerves II through XII intact. No focal deficits. MUSKULOSKELETAL: Able to move all extremities, strength equal bilaterally. PSYCHIATRIC: Alert and oriented to person place and time, appropriate affect, intact judgment and insight. - Allied health notes Allied health notes reviewed: nursing - Labs CBC & Chem 7: 05/18/23 06:50 05/18/23 05:49 Labs: Abnormal Lab Results - Last 24 Hours (Table) 05/17/23 05/17/23 05/17/23 Range/Units 11:24 16:11 19:53 RBC (4.30-5.90) m/uL Hgb (13.0-17.5) gm/dL Hct (39.0-53.0) % Plt Count (150-450) k/uL Sodium (137-145) mmol/L BUN (9-20) mg/dL Glucose (74-99) mg/dL POC Glucose (mg/dL) 254 H 253 H 226 H (70-110) mg/dL Calcium (8.4-10.2) mg/dL 05/18/23 05/18/23 05/18/23 Range/Units 05:49 06:34 06:50 RBC 2.52 L (4.30-5.90) m/uL Hgb 7.5 L (13.0-17.5) gm/dL Hct 21.1 L (39.0-53.0) % Plt Count 134 L (150-450) k/uL Sodium 133 L (137-145) mmol/L BUN 29 H (9-20) mg/dL Glucose 177 H (74-99) mg/dL POC Glucose (mg/dL) 216 H (70-110) mg/dL Calcium 7.7 L (8.4-10.2) mg/dL - Imaging and Cardiology Chest x-ray: report reviewed, image reviewed Assessment and Plan Assessment: Triple-vessel coronary artery disease, status post coronary artery bypass grafting surgery 5 vessels Dyspnea on exertion, secondary to above Hyperlipidemia, cholesterol 330, triglycerides 184, LDL 242, recently started on Crestor Type 2 diabetes, hemoglobin A1c 9.7%, recently started on Mounjaro Lifetime nonsmoker Mild cardiopathy preoperatively Postoperative acute blood loss anemia, expected given hemodilution and cardiopul monary bypass Plan: Continue to maximize medical therapy with aspirin, Plavix, statin, beta zhou. Will increase metoprolol tartrate as tolerated. Continue amiodarone 400 mg by mouth twice a day for atrial fibrillation prophylaxis. Continue calcium channel zhou for radial artery spasm prophylaxis when blood pressure is able to tolerate. Cardizem 30 mg by mouth every 8 hours. Encourage incentive spirometry use 10 times every hour while awake. Bronchodilators per pulmonology. Increase activity, ambulate as tolerated. PT/OT/cardiac rehab following. Will monitor daily labs and x-rays. Electrolyte replacement per protocol. GI/DVT prophylaxis. Pain control with current medication regimen. Insulin management per internal medicine. Patient is diabetic, preoperative hemoglobin A1c 9.6%. Needs tight blood sugar control to promote healing and pre vent infection The patient was started on lisinopril 2.5 mg by mouth daily by cardiology for afterload reduction. Continue to record strict and accurate I & O's, January bladder scan every 6 hours and when necessary postvoid residual. Daily weights. Shower daily Continue colchicine 0.6 mg by mouth twice a day, for possible pericarditis. Lasix 20 mg IV 1 now and potassium chloride 10 mEq by mouth 1 now. We will put transfer orders and two third for cardiac stepdown unit. Discharge planning is in place, anticipate discharge home within the next 24-48 hours with home health care. More recommendations to follow based on patient's clinical course. Time with Patient: Greater than 30
--- NOTE | 2023-05-18 09:57 | P.PN ---
Subjective Progress Note Date: 05/18/23 PROGRESS NOTE The patient is a 57-year-old male who underwent CABG today. He was recently seen in our office with newly diagnosed hyperlipidemia, he had diabetes not treated for many years and presented with symptoms of progressive fatigue, dyspnea and had an abnormal stress test. He underwent cardiac catheterization and was found to have calcified left main and proximal LAD with severe triple- vessel CAD. His intubated, sedated but starting to wake up, in sinus mechanism. Hemodynamically stable. There is no evidence of atrial fibrillation or ventricular tachyarrhythmia. His systolic function preoperatively was mildly impaired. May 15: The patient underwent CABG yesterday, he is extubated, sitting up in the chair. Complaining of soreness in the chest. He is in sinus mechanism. He denies any dizziness or palpitations, no nausea. He is on no vasopressors . Urinary output is good. May 16: The patient sitting up in the chair, feels well. He is using his incentive spirometry. He denies any significant chest discomfort. His breathing is stable. He is in sinus mechanism and had multiple PACs earlier, he was started on amiodarone. His EKG shows ST segment elevation consistent with pericarditis. He denies any nausea or vomiting. He is ambulating. May 17: The patient is feeling well, sitting up in the chair. He has mild soreness in the chest. He continues to be in sinus mechanism. His telemetry showed mild ST elevation consistent with pericarditis. He has no nausea or vomiting. He is doing better incentive spirometry. He has been walking. May 18: The patient feels better overall, stronger. He has been ambulating. He denies any chest discomfort, dizziness or palpitations. He denies any nausea or vomiting. He continues to be in sinus mechanism and hemodynamically stable. He has no evidence of atrial fibrillation or malignant arrhythmia. Medications: Metoprolol 25 mg twice a day, aspirin, Plavix 75 mg daily, Lipitor 40 mg daily, amiodarone 400 mg twice a day, diltiazem 30 mg every 8 hours, colchicine 0.6 mg twice a day, lisinopril 2.5 mg daily PHYSICAL EXAMINATION: Blood pressure 116/60 heart rate 98 LUNGS: Mild decreased breath sounds at the base with few crackles HEART: Regular rate and rhythm, S1, S2. No S3. No systolic murmur, plus rub ABDOMEN: Soft, nontender, no organomegaly EXTREMETIES: No edema LAB: Hemoglobin 7.5, WBC 7.9, BUN 29, creatinine 0.96 IMPRESSION: 1. Status post CABG, stable, extubated 2. Hyperlipidemia 3. diabetes mellitus 4. Mild cardiomyopathy preoperatively 5. Probable postoperative pericarditis PLAN: 1. Continue present therapy 2. Follow heart rate and adjust beta zhou accordingly 3. Continue incentive spirometry and increase physical activity 4. Continue adjusting treatment for control of blood sugar and probable discharge home in the next 24-48 hours Objective - Vital Signs Vital signs: Vital Signs Temp 98.2 F 05/18/23 08:00 Pulse 99 05/18/23 08:00 Resp 18 05/18/23 08:00 BP 116/68 05/18/23 08:00 Pulse Ox 97 05/18/23 08:00 FiO2 21 05/17/23 08:50 Intake & Output 05/17/23 05/18/23 05/18/23 18:59 06:59 18:59 Intake Total 270 240 Output Total 400 600 Balance -130 -360 Weight 93.5 kg Intake: IV 10 Invasive Line 1 10 Oral 260 240 Output: Urine 400 600 Other: Voiding Method Indwelling Catheter Urinal # Voids 1 1 # Bowel Movements 1 ABP, PAP, CO, CI - Last Documented Arterial Blood Pressure 116/48 Pulmonary Artery Pressure 28/15 Cardiac Output 5.8 Cardiac Index 2.9 - Labs CBC & Chem 7: 05/18/23 06:50 05/18/23 05:49 Labs: Abnormal Lab Results - Last 24 Hours (Table) 05/17/23 05/17/23 05/17/23 Range/Units 11:24 16:11 19:53 RBC (4.30-5.90) m/uL Hgb (13.0-17.5) gm/dL Hct (39.0-53.0) % Plt Count (150-450) k/uL Sodium (137-145) mmol/L BUN (9-20) mg/dL Glucose (74-99) mg/dL POC Glucose (mg/dL) 254 H 253 H 226 H (70-110) mg/dL Calcium (8.4-10.2) mg/dL 05/18/23 05/18/23 05/18/23 Range/Units 05:49 06:34 06:50 RBC 2.52 L (4.30-5.90) m/uL Hgb 7.5 L (13.0-17.5) gm/dL Hct 21.1 L (39.0-53.0) % Plt Count 134 L (150-450) k/uL Sodium 133 L (137-145) mmol/L BUN 29 H (9-20) mg/dL Glucose 177 H (74-99) mg/dL POC Glucose (mg/dL) 216 H (70-110) mg/dL Calcium 7.7 L (8.4-10.2) mg/dL
[2023-05-18 11:33] LABS: Glucose,Whole Blood 268 mg/dL (70-110)
[2023-05-18] MEDS: ASCORBIC ACID 500 MG TAB PO SCH (11:36)
[2023-05-18] MEDS: FERROUS SULFATE 325 MG TAB PO SCH (11:36)
--- NOTE | 2023-05-18 11:39 | P.PN ---
Subjective Progress Note Date: 05/18/23 Principal diagnosis: Multivessel coronary artery disease, status post CABG, postoperative day #4 This is a 57-year-old male patient with a known history of hyperlipidemia, diabetes mellitus, lifelong nonsmoker who had undergone a cardiac catheterization on 05/09/2023 and was found to have significant triple-vessel coronary artery disease and was recommended surgical revascularization. He was brought in today 05/14/2023 for surgery. He is seen in the immediate postoperative period in the intensive care unit. He is intubated and on mechanical ventilator rate of 14, tidal volume 500, FiO2 100% and a PEEP of 5. He has a mediastinal chest tube, left pleural chest tube. [place]-Ange catheter in place via the right IJ. Pacer wires in place. Cardiac output 4.7. Cardiac i ndex 2.4. PA pressures 32/20. CVP 13. Currently in sinus rhythm. He has a nitroglycerin drip at 5 mcg/m. Insulin drip at 2 units per hour. Chest x-ray shows proper positioning of tubes and lines. No acute opacities or infiltrates. Labs pending. ABGs pending. Patient was reevaluated today on 05/15/2023, patient was extubated last night a few hours after he arrived to the ICU uneventfully, he is on 3 L nasal cannula with O2 saturation 99%, blood pressure seems to be a bit soft 94/38. Patient does not seem to be in any distress. Continues to have mediastinal and chest tube in place. He is on insulin drip at 3 units per hour chest x-ray today is reassuring. Post CABG changes, could not appreciate any pneumothorax as noted by the radiologist he does have a bit of a mild pulmonary vascular congestion. WBC count is 12.6 and 9.8 electrolytes are normal renal profile is normal Reevaluated today on 05/16/2023, patient is still in ICU, doing well, he is on 2 L nasal cannula, on amiodarone drip denies any shortness of breath or wheezing, noted to have some ST elevation, and felt that the patient may have some component of pericarditis and colchicine was started. His IV fluids at KVO, his chest x-ray is showing postoperative changes, minimal left basilar atelectasis, no evidence of congestive heart failure. CBC is relatively normal except for hemoglobin of 7.8 and left lites are normal renal profile is normal patient has been ambulating today in the hallway, however he had difficulty with incentive spirometry. Patient was reevaluated today on 05/17/2023, remains you, he is on room air, patient is ambulating well on his own in the hallway, his chest x-ray is reassuring, mostly postoperative changes, no acute pulmonary disease noted. His incentive spirometry is getting better just over 1 L. His pleural and mediastinal tubes has been removed. Patient is in sinus rhythm, hemodynamically stable, hemoglobin today is 7.5 electrodes are normal renal profile done. Pat ient is relatively asymptomatic, Patient was reevaluated today on 05/18/2023, remains on room air, doing well, patient is feeling stronger and stronger, ambulating, not requiring any inotropes or any pressors, hemodynamically stable. Denies any discomfort or chest pain no GI symptoms, no evidence of arrhythmia. CBC is relatively normal electrolytes are normal renal profile is normal Objective - Vital Signs Vital signs: Vital Signs Temp 98.2 F 05/18/23 08:00 Pulse 60 05/18/23 11:04 Resp 18 05/18/23 08:00 BP 116/68 05/18/23 08:00 Pulse Ox 97 05/18/23 08:00 FiO2 21 05/17/23 08:50 Intake & Output 05/17/23 05/18/23 05/18/23 18:59 06:59 18:59 Intake Total 270 240 Output Total 400 600 Balance -130 -360 Weight 93.5 kg Intake: IV 10 Invasive Line 1 10 Oral 260 240 Output: Urine 400 600 Other: Voiding Method Indwelling Catheter Urinal # Voids 1 1 # Bowel Movements 1 ABP, PAP, CO, CI - Last Documented Arterial Blood Pressure 116/48 Pulmonary Artery Pressure 28/15 Cardiac Output 5.8 Cardiac Index 2.9 - Exam GENERAL EXAM: Revealed 57-year-old white male pleasant in no distress on room air HEAD: Normocephalic. EENT: PERRLA, EOMI, nonicteric, no neck masses, no JVD. CHEST: Surgical dressing dry and intact. Heart regular rate and rhythm LUNGS: Diminished breath sounds and crackles at the bases CVS: S1 and S2 normal with no audible murmur, regular rhythm. ABDOMEN: Soft nontender no megaly no rebound no guarding. SKIN: No rashes CENTRAL NERVOUS SYSTEM: Alert and oriented 3 no gross focal deficit EXTREMITIES: No clubbing edema or cyanosis. Psychiatric: Normal mood affect and normal mental status examination - Labs CBC & Chem 7: 05/18/23 06:50 05/18/23 05:49 Labs: Abnormal Lab Results - Last 24 Hours (Table) 05/17/23 05/17/23 05/18/23 Range/Units 16:11 19:53 05:49 RBC (4.30-5.90) m/uL Hgb (13.0-17.5) gm/dL Hct (39.0-53.0) % Plt Count (150-450) k/uL Sodium 133 L (137-145) mmol/L BUN 29 H (9-20) mg/dL Glucose 177 H (74-99) mg/dL POC Glucose (mg/dL) 253 H 226 H (70-110) mg/dL Calcium 7.7 L (8.4-10.2) mg/dL 05/18/23 05/18/23 05/18/23 Range/Units 06:34 06:50 11:31 RBC 2.52 L (4.30-5.90) m/uL Hgb 7.5 L (13.0-17.5) gm/dL Hct 21.1 L (39.0-53.0) % Plt Count 134 L (150-450) k/uL Sodium (137-145) mmol/L BUN (9-20) mg/dL Glucose (74-99) mg/dL POC Glucose (mg/dL) 216 H 268 H (70-110) mg/dL Calcium (8.4-10.2) mg/dL Assessment and Plan Assessment: Impression: Coronary artery disease, status post coronary artery bypass grafting x 5 with a PELAYO to the diagonal 2 to the LAD, left radial to the OM1 to the Diag 1, saphenous vein graft to the RCA. Postoperative day #4 Type 2 diabetes Dyslipidemia Lifelong nonsmoker Postoperative atelectasis, expected. Recommendation: Continue ambulation and incentive spirometry Maximize medical therapy including aspirin statins and Plavix and beta blockers Continue GI and DVT prophylaxis Possible discharge planning in the next 24 hours We'll continue to follow Time with Patient: Less than 30
--- NOTE | 2023-05-18 13:25 | P.PN ---
Subjective Progress Note Date: 05/18/23 patient is a 57-year-old gentleman with past medical history significant for hyperlipidemia, diabetes mellitus, lifelong nonsmoker who presented to the hospital for elective CABG on 05/14. Patient underwent cardiac catheterization on 05/09/2023 and was found to have significant triple-vessel coronary artery disease and was recommended surgical revascularization. Patient underwent CABG on 05/14. Postoperatively patient was monitored in the ICU, initially was intubated and was on mechanical ventilation. Patient was extubated yesterday. Medicine team was consulted for medical management 05/16. Patient seen and examined. Patient sitting upright in the chair. States he is passing gas. Tolerating diet. Patient ambulatory in the hallway this morning. 05/17. Patient seen and examined. Patient chest tubes and mediastinal tubes have been removed. Blood sugars are running in 200s, we'll increase Levemir to 5 units twice a day 05/18. Patient seen and examined. Blood sugars have been elevated, will increase Levemir to 8 units twice a day, add farxiga. REVIEW OF SYSTEMS: CONSTITUTIONAL: No fever, no malaise,. CARDIOVASCULAR: No chest pain, no palpitations, no syncope. PULMONARY: No shortness of breath, no cough, GASTROINTESTINAL: No diarrhea, no nausea, no vomiting, no abdominal pain. NEUROLOGICAL: No headaches, no weakness, PHYSICAL EXAMINATION: GENERAL: The patient is alert and oriented x3, not in any acute distress. Well developed, well nourished. HEENT: Pupils are round and equally reacting to light. EOMI. No scleral icterus. No conjunctival pallor. Normocephalic, atraumatic. No pharyngeal erythema. No thyromegaly. CARDIOVASCULAR: S1 and S2 present. No murmurs, rubs, or gallops. PULMONARY: Diminished breath sounds at the bases bilaterally ABDOMEN: Soft, nontender, nondistended, normoactive bowel sounds. No palpable organomegaly. MUSCULOSKELETAL: No joint swelling or deformity. EXTREMITIES: No cyanosis, clubbing, or pedal edema. NEUROLOGICAL: Gross neurological examination did not reveal any focal deficits. SKIN: No rashes. Assessment and plan Coronary artery disease, status post CABG with a PELAYO to the diagonal 2 to the LAD, left radial to the OM1 to the Diag 1, saphenous vein graft to the RCA. Diabetes mellitus Hyperlipidemia Lifelong nonsmoker Monitor vital signs Monitor CBC Monitor CMP Continue telemetry monitoring Aggressive bronchopulmonary hygiene Encourage use of I-S Continue aspirin, Lipitor Continue Plavix Continue Cardizem monitor blood sugar levels, last HbA1c level was 8.7. continue sliding scale insulin, increase Levemir to 8 units twice a day .add farxiga Continue postop care per cardiac surgery Critical care following Labs and medication were reviewed.. Continue same treatment. Continue with symptomatic treatment. Resume home medication. Monitor labs and vitals. DVT and GI prophylaxis. Further recommendations as per clinical course of the patient Dictation was produced using [employer] dictation software. please excuse any g rammatical, word or spelling errors. Objective - Vital Signs Vital signs: Vital Signs Temp 98.2 F 05/18/23 08:00 Pulse 60 05/18/23 11:04 Resp 18 05/18/23 08:00 BP 116/68 05/18/23 08:00 Pulse Ox 97 05/18/23 08:00 FiO2 21 05/17/23 08:50 Intake & Output 05/17/23 05/18/23 05/18/23 18:59 06:59 18:59 Intake Total 270 240 Output Total 400 600 Balance -130 -360 Weight 93.5 kg Intake: IV 10 Invasive Line 1 10 Oral 260 240 Output: Urine 400 600 Other: Voiding Method Indwelling Catheter Urinal # Voids 1 1 # Bowel Movements 1 ABP, PAP, CO, CI - Last Documented Arterial Blood Pressure 116/48 Pulmonary Artery Pressure 28/15 Cardiac Output 5.8 Cardiac Index 2.9 - Labs CBC & Chem 7: 05/18/23 06:50 05/18/23 05:49 Labs: Abnormal Lab Results - Last 24 Hours (Table) 05/17/23 05/17/23 05/18/23 Range/Units 16:11 19:53 05:49 RBC (4.30-5.90) m/uL Hgb (13.0-17.5) gm/dL Hct (39.0-53.0) % Plt Count (150-450) k/uL Sodium 133 L (137-145) mmol/L BUN 29 H (9-20) mg/dL Glucose 177 H (74-99) mg/dL POC Glucose (mg/dL) 253 H 226 H (70-110) mg/dL Calcium 7.7 L (8.4-10.2) mg/dL 05/18/23 05/18/23 05/18/23 Range/Units 06:34 06:50 11:31 RBC 2.52 L (4.30-5.90) m/uL Hgb 7.5 L (13.0-17.5) gm/dL Hct 21.1 L (39.0-53.0) % Plt Count 134 L (150-450) k/uL Sodium (137-145) mmol/L BUN (9-20) mg/dL Glucose (74-99) mg/dL POC Glucose (mg/dL) 216 H 268 H (70-110) mg/dL Calcium (8.4-10.2) mg/dL
[2023-05-18] MEDS: DAPAGLIFLOZIN PROPANEDIOL 10 MG TABLET PO SCH (14:20)
[2023-05-18 16:21] LABS: Glucose,Whole Blood 208 mg/dL (70-110)
[2023-05-18] MEDS: SENNOSIDES-DOCUSATE SODIUM 1 EACH TAB PO SCH (19:52)
[2023-05-18 23:47] LABS: Glucose,Whole Blood 107 mg/dL (70-110)
[2023-05-19] MEDS: PANTOPRAZOLE 40 MG TABLET PO SCH (06:24)
--- NOTE | 2023-05-19 07:38 | XR ---
EXAMINATION TYPE: XR chest 2V DATE OF EXAM: 05/19/2023 6:22 AM COMPARISON: Chest radiographs from 05/18/2023 TECHNIQUE: XR chest 2V Frontal and lateral views of the chest. CLINICAL INDICATION:Male, 57 years old with history of Postop CABG; FINDINGS: Lungs/Pleura: Trace bilateral pleural effusions with associated atelectasis. No pneumothorax. Pulmonary vascularity: Unremarkable. Heart/mediastinum: Cardiomediastinal silhouette is enlarged and stable. Post CABG changes. Left atri al appendage occlusion devices present. Musculoskeletal: No acute osseous pathology. Midline sternotomy wires are noted and stable. IMPRESSION: Overall stable examination with post CABG changes and trace bilateral pleural effusions with associat ed atelectasis.
[2023-05-19] MEDS: INSULIN ASPART (NovoLOG) 100 UNIT/ML VIAL SQ SCH ×2 (08:16→12:26)
[2023-05-19] MEDS: ASPIRIN 325 MG TAB PO SCH (08:26)
[2023-05-19] MEDS: COLCHICINE 0.6 MG EACH PO SCH (08:26)
[2023-05-19] MEDS: AMIODARONE 200 MG TAB PO SCH (08:26)
[2023-05-19] MEDS: ATORVASTATIN 40 MG TAB PO SCH (08:26)
[2023-05-19] MEDS: CLOPIDOGREL 75 MG TAB PO SCH (08:26)
[2023-05-19] MEDS: METOPROLOL TARTRATE 25 MG TAB PO SCH (08:26)
[2023-05-19] MEDS: DILTIAZEM ORAL 30 MG TAB PO SCH ×2 (08:26)
[2023-05-19] MEDS: DAPAGLIFLOZIN PROPANEDIOL 10 MG TABLET PO SCH (08:27)
[2023-05-19] MEDS: FONDAPARINUX 2.5 MG/0.5 ML SYRINGE SQ SCH (08:28)
[2023-05-19] MEDS: IPRATROPIUM-ALBUTEROL 3 ML NEB INHALATION SCH ×2 (08:40→12:02)
[2023-05-19] MEDS: INSULIN DETEMIR (LEVEMIR) 100 UNIT/ML SYR SQ SCH (09:28)
--- NOTE | 2023-05-19 10:34 | P.PN ---
Subjective Progress Note Date: 05/19/23 This is a 57-year-old male patient with a known history of hyperlipidemia, diabetes mellitus, lifelong nonsmoker who had undergone a cardiac catheterization on 05/09/2023 and was found to have significant triple-vessel coronary artery disease and was recommended surgical revascularization. He was brought in today 05/14/2023 for surgery. He is seen in the immediate postoperative period in the intensive care unit. He is intubated and on mechanical ventilator rate of 14, tidal volume 500, FiO2 100% and a PEEP of 5. He has a mediastinal chest tube, left pleural chest tube. [place]-Ange catheter in place via the right IJ. Pacer wires in place. Cardiac output 4.7. Cardiac index 2.4. PA pressures 32/20. CVP 13. Currently in sinus rhythm. He has a nitroglycerin drip at 5 mcg/m. Insulin drip at 2 units per hour. Chest x-ray shows proper positioning of tubes and lines. No acute opacities or infiltrates. Labs pending. ABGs pending. Patient was reevaluated today on 05/15/2023, patient was extubated last night a few hours after he arrived to the ICU uneventfully, he is on 3 L nasal cannula with O2 saturation 99%, blood pressure seems to be a bit soft 94/38. Patient does not seem to be in any distress. Continues to have mediastinal and chest tube in place. He is on insulin drip at 3 units per hour chest x-ray today is reassuring. Post CABG changes, could not appreciate any pneumothorax as noted by the radiologist he does have a bit of a mild pulmonary vascular congestion. WBC count is 12.6 and 9.8 electrolytes are normal renal profile is normal Reevaluated today on 05/16/2023, patient is still in ICU, doing well, he is on 2 L nasal cannula, on amiodarone drip denies any shortness of breath or wheezing, noted to have some ST elevation, and felt that the patient may have some component of pericarditis and colchicine was started. His IV fluids at KVO, his chest x-ray is showing postoperative changes, minimal left basilar atelectasis, no evidence of congestive heart failure. CBC is relatively normal except for hemoglobin of 7.8 and left lites are normal renal profile is normal patient has been ambulating today in the hallway, however he had difficulty with incentive spirometry. Patient was reevaluated today on 05/17/2023, remains you, he is on room air, patient is ambulating well on his own in the hallway, his chest x-ray is reassuring, mostly postoperative changes, no acute pulmonary disease noted. His incentive spirometry is getting better just over 1 L. His pleural and mediastinal tubes has been removed. Patient is in sinus rhythm, hemodynamically stable, hemoglobin today is 7.5 electrodes are normal renal profile done. Patient is relatively asymptomatic, Patient was reevaluated today on 05/18/2023, remains on room air, doing well, patient is feeling stronger and stronger, ambulating, not requiring any inotropes or any pressors, hemodynamically stable. Denies any discomfort or chest pain no GI symptoms, no evidence of arrhythmia. CBC is relatively normal electrolytes are normal renal profile is normal. The patient is seen today 05/19/2023 in follow-up on the selective care unit. He is currently sitting up in a chair at the bedside. Awake and alert in no acute distress. Maintaining good O2 saturations in the 90s on room air. Chest x-ray reveals trace bilateral pleural effusions with associated atelectasis. Stable compared to previous. He remains on DuoNeb inhalations. Anticoagulated with Arixtra. Objective - Vital Signs Vital signs: Vital Signs Temp 98.8 F 05/19/23 03:15 Pulse 92 05/19/23 08:54 Resp 18 05/19/23 03:15 BP 118/69 05/19/23 03:15 Pulse Ox 96 05/19/23 03:15 FiO2 21 05/17/23 08:50 Intake & Output 05/18/23 05/19/23 05/19/23 18:59 06:59 18:59 Intake Total 500 Output Total 300 450 400 Balance 200 -450 -400 Weight 95 kg Intake: Oral 500 Output: Urine 300 450 400 Other: # Voids 2 1 1 # Bowel Movements 2 ABP, PAP, CO, CI - Last Documented Arterial Blood Pressure 116/48 Pulmonary Artery Pressure 28/15 Cardiac Output 5.8 Cardiac Index 2.9 - Exam GENERAL EXAM: Alert, active, very pleasant 57-year-old male, on room air, comfortable in no apparent distress. HEAD: Normocephalic. EYES: Normal reaction of pupils, equal size. NOSE: Clear with pink turbinates. THROAT: No erythema or exudates. NECK: No masses, no JVD. CHEST: Sternal dressing dry and intact. Heart Hugger in place. LUNGS: Equal air entry with no crackles, wheeze, rhonchi or dullness. CVS: S1 and S2 normal with no audible murmur, regular rhythm. ABDOMEN: No hepatosplenomegaly, normal bowel sounds, no guarding or rigidity. SPINE: No scoliosis or deformity SKIN: No rashes CENTRAL NERVOUS SYSTEM: No focal deficits, tone is normal in all 4 extremities. EXTREMITIES: There is no peripheral edema. No clubbing, no cyanosis. Peripheral pulses are intact. - Labs CBC & Chem 7: 05/18/23 06:50 05/18/23 05:49 Labs: Abnormal Lab Results - Last 24 Hours (Table) 05/18/23 05/18/23 Range/Units 11:31 16:20 POC Glucose (mg/dL) 268 H 208 H (70-110) mg/dL Assessment and Plan Assessment: Coronary artery disease, status post coronary artery bypass grafting x 5 with a PELAYO to the diagonal 2 to the LAD, left radial to the OM1 to the Diag 1, saphenous vein graft to the RCA. Postoperative day #5 Diabetes mellitus Hyperlipidemia Lifelong nonsmoker Plan: The patient was seen and evaluated Chest x-ray and medications reviewed Currently stable and on room air Home once cleared by CT services Follow-up in the office in 1 week I have personally seen and examined the patient, performed the documentation and the assessment and plan as written. Number of minutes spent on the visit: 10.
[2023-05-19 11:31] LABS: Glucose,Whole Blood 152 mg/dL (70-110)
--- NOTE | 2023-05-19 11:45 | P.PN ---
Subjective Progress Note Date: 05/19/23 PROGRESS NOTE The patient is a 57-year-old male who underwent CABG today. He was recently seen in our office with newly diagnosed hyperlipidemia, he had diabetes not treated for many years and presented with symptoms of progressive fatigue, dyspnea and had an abnormal stress test. He underwent cardiac catheterization and was found to have calcified left main and proximal LAD with severe triple- vessel CAD. His intubated, sedated but starting to wake up, in sinus mechanism. Hemodynamically stable. There is no evidence of atrial fibrillation or ventricular tachyarrhythmia. His systolic function preoperatively was mildly impaired. May 15: The patient underwent CABG yesterday, he is extubated, sitting up in the chair. Complaining of soreness in the chest. He is in sinus mechanism. He denies any dizziness or palpitations, no nausea. He is on no vasopressors . Urinary output is good. May 16: The patient sitting up in the chair, feels well. He is using his incentive spirometry. He denies any significant chest discomfort. His breathing is stable. He is in sinus mechanism and had multiple PACs earlier, he was started on amiodarone. His EKG shows ST segment elevation consistent with pericarditis. He denies any nausea or vomiting. He is ambulating. May 17: The patient is feeling well, sitting up in the chair. He has mild soreness in the chest. He continues to be in sinus mechanism. His telemetry showed mild ST elevation consistent with pericarditis. He has no nausea or vomiting. He is doing better incentive spirometry. He has been walking. May 18: The patient feels better overall, stronger. He has been ambulating. He denies any chest discomfort, dizziness or palpitations. He denies any nausea or vomiting. He continues to be in sinus mechanism and hemodynamically stable. He has no evidence of atrial fibrillation or malignant arrhythmia. May 19: The patient is feeling well, he is ambulating without difficulty. He continues to be in sinus mechanism. He has no nausea or vomiting no dizziness or palpitations. He has no further episodes of atrial fibrillation. Medications: Metoprolol 25 mg twice a day, aspirin, Plavix 75 mg daily, Lipitor 40 mg daily, amiodarone 400 mg twice a day, diltiazem 30 mg every 8 hours, colchicine 0.6 mg twice a day, lisinopril 2.5 mg daily, Farxiga 10 mg daily PHYSICAL EXAMINATION: Blood pressure 121/70 heart rate 96 LUNGS: Mild decreased breath sounds , no rales HEART: Regular rate and rhythm, S1, S2. No S3. No systolic murmur, plus rub ABDOMEN: Soft, nontender, no organomegaly EXTREMETIES: No edema LAB: Pending IMPRESSION: 1. Status post CABG, stable, extubated 2. Hyperlipidemia 3. diabetes mellitus 4. Mild cardiomyopathy preoperatively 5. Probable postoperative pericarditis PLAN: 1. Continue present therapy 2. Increase physical activity 3. Probable discharged home soon and follow-up as an outpatient. Objective - Vital Signs Vital signs: Vital Signs Temp 97.6 F 05/19/23 08:00 Pulse 92 05/19/23 08:54 Resp 14 05/19/23 08:00 BP 121/76 05/19/23 08:00 Pulse Ox 99 05/19/23 08:00 FiO2 21 05/17/23 08:50 Intake & Output 05/18/23 05/19/23 05/19/23 18:59 06:59 18:59 Intake Total 500 Output Total 300 450 400 Balance 200 -450 -400 Weight 95 kg Intake: Oral 500 Output: Urine 300 450 400 Other: Voiding Method Urinal # Voids 2 1 1 # Bowel Movements 2 ABP, PAP, CO, CI - Last Documented Arterial Blood Pressure 116/48 Pulmonary Artery Pressure 28/15 Cardiac Output 5.8 Cardiac Index 2.9 - Labs CBC & Chem 7: 05/18/23 06:50 05/18/23 05:49 Labs: Abnormal Lab Results - Last 24 Hours (Table) 05/18/23 05/19/23 Range/Units 16:20 11:29 POC Glucose (mg/dL) 208 H 152 H (70-110) mg/dL
[2023-05-19 12:10] VITALS: BP 92/66; PULSE 88; RESP 16; TEMP 98.2
--- NOTE | 2023-05-19 12:10 | P.PN ---
Subjective Progress Note Date: 05/19/23 patient is a 57-year-old gentleman with past medical history significant for hyperlipidemia, diabetes mellitus, lifelong nonsmoker who presented to the hospital for elective CABG on 05/14. Patient underwent cardiac catheterization on 05/09/2023 and was found to have significant triple-vessel coronary artery disease and was recommended surgical revascularization. Patient underwent CABG on 05/14. Postoperatively patient was monitored in the ICU, initially was intubated and was on mechanical ventilation. Patient was extubated yesterday. Medicine team was consulted for medical management 05/16. Patient seen and examined. Patient sitting upright in the chair. States he is passing gas. Tolerating diet. Patient ambulatory in the hallway this morning. 05/17. Patient seen and examined. Patient chest tubes and mediastinal tubes have been removed. Blood sugars are running in 200s, we'll increase Levemir to 5 units twice a day 05/18. Patient seen and examined. Blood sugars have been elevated, will increase Levemir to 8 units twice a day, add farxiga. 05/19. Patient seen and examined. Being discharged on Levemir 8 units twice a day, farxiga and sliding scale insulin REVIEW OF SYSTEMS: CONSTITUTIONAL: No fever, no malaise,. CARDIOVASCULAR: No chest pain, no palpitations, no syncope. PULMONARY: No shortness of breath, no cough, GASTROINTESTINAL: No diarrhea, no nausea, no vomiting, no abdominal pain. NEUROLOGICAL: No headaches, no weakness, PHYSICAL EXAMINATION: GENERAL: The patient is alert and oriented x3, not in any acute distress. Well developed, well nourished. HEENT: Pupils are round and equally reacting to light. EOMI. No scleral icterus. No conjunctival pallor. Normocephalic, atraumatic. No pharyngeal erythema. No thyromegaly. CARDIOVASCULAR: S1 and S2 present. No murmurs, rubs, or gallops. PULMONARY: Diminished breath sounds at the bases bilaterally ABDOMEN: Soft, nontender, nondistended, normoactive bowel sounds. No palpable organomegaly. MUSCULOSKELETAL: No joint swelling or deformity. EXTREMITIES: No cyanosis, clubbing, or pedal edema. NEUROLOGICAL: Gross neurological examination did not reveal any focal deficits. SKIN: No rashes. Assessment and plan Coronary artery disease, status post CABG with a PELAYO to the diagonal 2 to the LAD, left radial to the OM1 to the Diag 1, saphenous vein graft to the RCA. Diabetes mellitus Hyperlipidemia Lifelong nonsmoker Monitor vital signs Monitor CBC Monitor CMP Continue telemetry monitoring Aggressive bronchopulmonary hygiene Encourage use of I-S Continue aspirin, Lipitor Continue Plavix Continue Cardizem monitor blood sugar levels, last HbA1c level was 8.7. Being discharged on Levemir 8 units twice a day, farxiga and sliding scale insulin Continue postop care per cardiac surgery Critical care following Labs and medication were reviewed.. Continue same treatment. Continue with symptomatic treatment. Resume home medication. Monitor labs and vitals. DVT and GI prophylaxis. Further recommendations as per clinical course of the patient Dictation was produced using [employer] dictation software. please excuse any grammatical, word or spelling errors. Objective - Vital Signs Vital signs: Vital Signs Temp 97.6 F 05/19/23 08:00 Pulse 92 05/19/23 08:54 Resp 14 05/19/23 08:00 BP 121/76 05/19/23 08:00 Pulse Ox 99 05/19/23 08:00 FiO2 21 05/17/23 08:50 Intake & Output 05/18/23 05/19/23 05/19/23 18:59 06:59 18:59 Intake Total 500 Output Total 300 450 400 Balance 200 -450 -400 Weight 95 kg Intake: Oral 500 Output: Urine 300 450 400 Other: Voiding Method Urinal # Voids 2 1 1 # Bowel Movements 2 ABP, PAP, CO, CI - Last Documented Arterial Blood Pressure 116/48 Pulmonary Artery Pressure 28/15 Cardiac Output 5.8 Cardiac Index 2.9 - Labs CBC & Chem 7: 05/18/23 06:50 05/18/23 05:49 Labs: Abnormal Lab Results - Last 24 Hours (Table) 05/18/23 05/19/23 Range/Units 16:20 11:29 POC Glucose (mg/dL) 208 H 152 H (70-110) mg/dL
[2023-05-19] MEDS: ASCORBIC ACID 500 MG TAB PO SCH (12:26)
[2023-05-19] MEDS: FERROUS SULFATE 325 MG TAB PO SCH (12:26)
--- NOTE | 2023-05-19 12:43 | P.DS ---
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 Consult: post cardiac surgery Do you want consulting provider notified?: Yes Primary care physician: Hemanth Sy Hospital Course: FINAL DIAGNOSIS: Triple-vessel coronary artery disease, status post coronary artery bypass grafting surgery 5 vessels Dyspnea on exertion, secondary to above Hyperlipidemia, cholesterol 330, triglycerides 184, LDL 242, recently started on Crestor Type 2 diabetes, hemoglobin A1c 9.7%, recently started on Mounjaro 2 weeks ago as an outpatient Lifetime nonsmoker Mild cardiopathy preoperatively Postoperative acute blood loss anemia, expected given hemodilution and cardiopulmonary bypass PRINCIPAL PROCEDURE: Quintuple multiple arterial coronary artery bypass grafting using the left internal mammary artery sequentially to the medial branching of the diagonal coronary artery and a [id number] fashion, then to the left anterior descending coronary artery in an end-to-side fashion, left radial artery from the aorta anastomosed in a [id number] fashion to the first obtuse marginal coronary artery, then in an end side fashion to the lateral branching of the diagonal coronary artery, a reverse greater saphenous vein graft from the aorta to the right coronary artery. Exclusion of the left atrial appendage using a 35 mm Atriclip Endoscopic harvesting of the left radial artery. Endoscopic harvesting of the left greater saphenous vein. Intraoperative graft flow measurement using the Medistim system. Intraoperative transesophageal echocardiogram performed by anesthesia Intraoperative epi-aortic scanning. HISTORY OF PRESENT ILLNESS: This is a 57-year-old gentleman who follows on an outpatient basis with Dr. Hemanth [facility]. The patient is quite active and right bikes several miles daily. Over the last year to year and a half the patient has noticed a decrease in his activity tolerance and has complaints of exertional dyspnea. Initially he was relating this to the aging process and just getting older. Subsequently due to his complaints he presented to his primary care physician's office and was recommended to undergo a stress test. The stress test showed a 1.[address] segment depression which persisted long into recovery suggesting ischemia. Due to the findings on the stress test he was referred to Dr. Mixon from cardiology [facility] for further evaluation and treatment recommendations. Subsequently, the patient was recommended to undergo a heart catheterization which demonstrated a distal left main stenosis of 30-40%, a 90% stenosis to his proximal left anterior descending coronary artery, a 90-95% stenosis to his mid to distal left anterior descending coronary artery, a small nondominant left circumflex with a subtotally occluded third obtuse marginal coronary artery branch, a 90% stenosis to his proximal ramus coronary artery, a 70% stenosis to his proximal right coronary artery, an 85-90% stenosis to his mid right coronary artery and a 99% stenosis to his right distal coronary artery. During heart catheterization a left ventriculogram was completed with no gradient across the aortic valve, and his LVEDP showed 20-25 mm. Due to the findings on the cardiac catheterization results he was seen by Dr. Agusto Best from cardiothoracic surgery who discussed treatment options including myocardial revascularization surgery. Risks and benefits of surgery were discussed including the STS risk score and knowing and understanding the risks the patient wished to proceed with the surgical option. HOSPITAL COURSE: On 05/14/2023 the patient was brought to the hospital, consent was obtained, the patient was brought to the preoperative area, peritoneum usual fashion and subsequently taken to the operating room where Dr. Agusto Best performed a quintuple multiple arterial coronary artery bypass grafting surgery. Upon completion of the surgery the patient was transferred to the cardiovascular intensive care unit where he was recovered and monitored hemo dynamically. He was subsequently extubated, all lines, tubes and supportive drips were discontinued when appropriate and he was transferred to the cardiac stepdown unit for further monitoring and rehabilitation. His oxygen was titrated off, he continued to work with physical/occupational therapy, cardiac will build patient staff, he was tolerating an oral diet, his pain was well controlled without narcotics and he was ready to be discharged home with a home health care on postoperative day #6. The patient has received verbal and written instructions regarding his medications, activity restrictions, signs and symptoms requiring physician notification and his follow-up appointments. Plan - Discharge Summary Discharge Rx Participant: No New Discharge Prescriptions: New Colchicine [Colcrys] 0.6 mg PO BID #14 each Amiodarone [Cordarone] 400 mg PO DAILY #14 tab Clopidogrel [Plavix] 75 mg PO DAILY #30 tab Pantoprazole [Protonix] 40 mg PO AC-BRKFST #30 tab Potassium Chloride ER [K-Dur 10] 10 meq PO DAILY #5 tab Furosemide [Lasix] 20 mg PO DAILY #5 tab Diltiazem Oral [Cardizem*] 30 mg PO Q8H #90 tab Ferrous Sulfate [Iron (65 MG Elemental)] 325 mg PO W/LUNCH #7 tab Sennosides-Docusate Sodium [Senokot-S] 2 each PO HS #14 tab Acetaminophen Tab [Tylenol] 1,000 mg PO Q6HR PRN tab PRN Reason: Fever and/ or Mild Pain Ascorbic Acid [Vitamin C] 500 mg PO W/LUNCH #7 tab lisinopriL [Zestril] 2.5 mg PO DAILY #30 tab Dapagliflozin Propanediol [Farxiga] 10 mg PO DAILY #30 tab Insulin Detemir (Levemir) [Levemir] 8 unit SQ BID@0700,2100 #1 each INSULIN ASPART (NovoLOG) [NovoLOG (formulary)] 0 unit SQ ACHS #1 each Continue Rosuvastatin Calcium [Crestor] 40 mg PO DAILY Aspirin [Adult Low Dose Aspirin EC] 81 mg PO DAILY Metoprolol Tartrate [Lopressor] 25 mg PO BID Tirzepatide [Mounjaro] 2.5 mg SQ SA Discharge Medication List Aspirin [Adult Low Dose Aspirin EC] 81 mg PO DAILY 05/06/23 [History] Metoprolol Tartrate [Lopressor] 25 mg PO BID 05/06/23 [History] Rosuvastatin Calcium [Crestor] 40 mg PO DAILY 05/06/23 [History] Tirzepatide [Mounjaro] 2.5 mg SQ SA 05/06/23 [History] Acetaminophen Tab [Tylenol] 1,000 mg PO Q6HR PRN tab 05/19/23 [Rx] Amiodarone [Cordarone] 400 mg PO DAILY #14 tab 05/19/23 [Rx] Ascorbic Acid [Vitamin C] 500 mg PO W/LUNCH #7 tab 05/19/23 [Rx] Clopidogrel [Plavix] 75 mg PO DAILY #30 tab 05/19/23 [Rx] Colchicine [Colcrys] 0.6 mg PO BID #14 each 05/19/23 [Rx] Dapagliflozin Propanediol [Farxiga] 10 mg PO DAILY #30 tab 05/19/23 [Rx] Diltiazem Oral [Cardizem*] 30 mg PO Q8H #90 tab 05/19/23 [Rx] Ferrous Sulfate [Iron (65 MG Elemental)] 325 mg PO W/LUNCH #7 tab 05/19/23 [Rx] Furosemide [Lasix] 20 mg PO DAILY #5 tab 05/19/23 [Rx] INSULIN ASPART (NovoLOG) [NovoLOG (formulary)] 0 unit SQ ACHS #1 each 05/19/23 [Rx] Insulin Detemir (Levemir) [Levemir] 8 unit SQ BID@0700,2100 #1 each 05/19/23 [Rx] Pantoprazole [Protonix] 40 mg PO AC-BRKFST #30 tab 05/19/23 [Rx] Potassium Chloride ER [K-Dur 10] 10 meq PO DAILY #5 tab 05/19/23 [Rx] Sennosides-Docusate Sodium [Senokot-S] 2 each PO HS #14 tab 05/19/23 [Rx] lisinopriL [Zestril] 2.5 mg PO DAILY #30 tab 05/19/23 [Rx] Follow up Appointment(s)/Referral(s): Hemanth Sy MD [Primary Care Provider] - 05/21/23 10:20 am Kallie Reyes MD [STAFF PHYSICIAN] - 06/10/23 1:30 pm Anca Owen NPC [Nurse Practitioner] - 05/23/23 11:00 am Maryse Mixon MD [STAFF PHYSICIAN] - 06/05/23 8:30 am [facility],Cardiac [NON-STAFF] - 4 Weeks Agusto Best MD [STAFF PHYSICIAN] - 06/05/23 2:30 pm [facility] [NON-STAFF] - 1 Week ([facility] will call you to schedule a visit) Ambulatory/Diagnostic Orders: Complete Blood Count w/diff [LAB.AMB] Time Frame: 05/22/23, Facility: [facility], Location: [facility] Comprehensive Metabolic Panel [LAB.AMB] Time Frame: 05/22/23, Facility: [facility], Location: [facility] Activity/Diet/Wound Care/Special Instructions: DISCHARGE INSTRUCTIONS: 1. No driving for 4 weeks, or until physician gives their ok. 2. The patient should sleep in their own bed, no medical bed needed. 3. Stairs are not an issue. If the bedroom is upstairs, it is advised that the patient go up at night and down in the morning for the first week. Go slowly, using handrail and take 1 step at a time. 4. CHARLES hose are to be worn for 30 days or until physician discontinues. 5. Heart hugger is to be worn 100% of the time until physician discontinues.(except when showering) 6. No lifting, pushing, or pulling more than 10 pounds for 12 weeks. The physician will advise of any restriction changes. 7. The patient is expected to continue the prescribed walking program. 8. Continue pain control per as needed orders. 9. Continue with incentive spirometry and splinting/heart hugger until otherwise directed by the physician. 10. Must shower daily using liquid antibacterial soap and a separate white washcloth for each individual incision. 11. Routine sternal incision care, no ointments, lotions or powders on the incisions. 12. Please notify surgeon/nurse practitioner for temperature greater than 101F or purulent drainage from incisions 13. Prescriptions for first 30 days given per cardiac surgery service. After 30 days, all prescription refills obtained through cardiology/primary care physician. 14. A red arm and has been placed on this patient it should be worn for 30 days post surgery and will be removed by the cardiothoracic surgeons. If an ER visit is necessary, please make sure the number on the red arm band is called. HOME HEALTH SERVICES TO PROVIDE: RN SKILLED HOME CARE SERVICES FOR POST-OP SURGICAL PATIENTS WITH THE FOLLOWING: Coronary Artery Bypass Surgery (CABG), Mitral Valve Replacement/Repair ( MVR), Aortic Valve Replacement/Repair (AVR) RN TO CONTINUE EDUCATION FROM ``ROAD TO A HEALTH HEART PATIENT EDUCATION MANUAL" (GIVEN TO PATIENT IN THE HOSPITAL) MEDICATION RECONCILIATION WITH EDUCATION NEEDED ON FIRST HOME VISIT EMPHASIZE IMPORTANCE OF WEARING BREAST SUPPORT/HEART HUGGER ENCOURAGE USE OF INCENTIVE SPIROMETER 10 X EVERY HOUR WHILE AWAKE ENCOURAGE UTILIZATION OF LOWER EXTREMITY COMPRESSION STOCKINGS/CHARLES HOSE and ELEVATE LEGS ABOVE LEVEL OF HEART WHILE AT REST. ENCOURAGE AMBULATION 3-5x/day INCREASING TOLERATES, WHILE AVOID EXTREMES IN TEMPERATURE FREQUENCY: RN TO OPEN THE PATIENT WITHIN 24 HOURS OF DISCHARGE FROM THE HOSPITAL WITH TELEHEALTH INSTALLED AT [facility] [place], RN TO VISIT 2-3 X A WEEK FOR 4 WEEKS ESTABLISHED BY PATIENT NEEDS. REMOVAL OF SUTURES: NURSING SERVICES TO REMOVE SUTURES TWO WEEKS POST SURGICAL DATE [ default ]. If any questions regarding suture removal please call the office at [phone]. LABORATORY: CBC, CMP TO BE DRAWN ON THE THIRD DAY HOME, (RAN STAT) FAX RESULTS TO [phone]. TELEHEALTH PARAMETERS: WEIGHT: NOTIFY MD OF WEIGHT GAIN OF 2 LBS IN 24 HOURS OR 5 LBS IN ONE WEEK HR: NOTIFY MD OF HR <55 BPM OR HR>100 BPM BP: NOTIFY MD IF BP <90/55 OR BP>140/100 O2 SAT: NOTIFY MD IF PO2<93% ON ROOM AIR SEND TELEHEALTH REPORT TO PRODUCTION GEAR CUTTER AND CARDIOVASCULAR SURGEON THE FIRST WEEK OF CARE AND THEN BI-WEEKLY. PLEASE ADDITIONALLY COMMUNICATE ANY ABNORMALS AND NEW FINDINGS TO THE SURGEONS OFFICE. Discharge Disposition: HOME WITH HOME HEALTH SERVICES
[2023-05-19 12:51] LABS: HCT 23.9 % (39.0-53.0); HGB 8.3 gm/dL (13.0-17.5); MCH 29.6 pg (25.0-35.0); MCHC 34.8 g/dL (31.0-37.0); MCV 85.1 fL (80.0-100.0); Mean Platelet Volume 10.4; Platelet Count 245 k/uL (150-450); RBC 2.81 m/uL (4.30-5.90); RDW 13.7 % (11.5-15.5); WBC 10.1 k/uL (3.8-10.6)
[2023-05-19 13:02] LABS: African American GFR (CKD) 89 (>60 ml/min/1.73 sqM); Anion Gap 10 mmol/L; Blood Urea Nitrogen 27 mg/dL (9-20); Calcium 8.2 mg/dL (8.4-10.2); Carbon Dioxide 23 mmol/L (22-30); Chloride 102 mmol/L (98-107); Glucose 128 mg/dL (74-99); Non-African American GFR(CKD) 77 (>60 ml/min/1.73 sqM); Sodium 135 mmol/L (137-145)
--- NOTE | 2023-05-21 13:37 | CDI ---
Documentation Clarification Form Date: 05/21/2023 01:08:36 PM From: Radha Donovan RN CCDS Phone: [phone] Admit Date: 05/14/2023 05:35:00 AM Patient Name: Anup Carson Visit Number: [id number] Discharge Date: 05/19/2023 02:59:00 PM ATTENTION: The Clinical Documentation Specialists (CDI) and [facility] Coding Staff appreciate your assistance in clarifying documentation. Please respond to the clarification below the line at the bottom and electronically sign. The CDI & [facility] Coding staff will review the response and follow-up if needed. Please note: Queries are made part of the Legal Health Record. If you have any questions, please contact the author of this message via ITS. Dr. Agusto Best Postoperative pericarditis is documented in Cardiology notes 05/16 05/19 and patient had Coronary artery bybass grafting surgery x5 vessels, 05/14. Additional clarification is requested regarding the relationship, if any, that exists between the diagnosis and the procedure. Patients Admitting Diagnosis: Triple vessel coronary artery disease, mild left ventricular dysfunction, diabetes hypertension. Post-Operative Diagnosis: Triple vessel coronary artery disease, mild left ventricular dysfunction, diabetes hypertension, diffuse coronary artery disease. Procedure performed: Quintuple multiple arterial coronary artery bypass grafting using. History/Risk Factors: 57 year old male presents for elective Coronary Artery Bypass surgery. Medical history: CAD, DM2, HLD and lifelong smoker. 05/15, Medicine consult. Clinical Indicators: 05/16, Cardiology Note: His EKG shows ST Segment elevation consistent with pericarditis. Treatment: 05/16 Toradol 15mg IV x 1 and 05/16 Colcrys 0.6mg PO BID What relationship, if any, exists between the diagnosis of Pericarditis and the procedure: [ ] Pericarditis is a complication of surgical procedure [ X] Pericarditis is an expected outcome of the surgical procedure [ ] Pericarditis is related to patients co-morbid condition(s) of [insert co- morbid dxs] & not a complication of the procedure [ ] Other please specify ____ [ ] Unable to determine (Template Last Revised: November 2020) MTDD
== END 2023-05-19 14:59 | disposition home health service (06) | DRG 236 ==
LOC: 2ORMAIN 05:35 → 2SICU 14:27 → 3SCARD 05-19 03:05
PROVIDERS: ADMIT Surgery; ATTEND Surgery
PROC: 06BQ4ZZ Excision of Left Saphenous Vein, Percutaneous Endoscopic Approach (ICD-10-PCS; 2023-05-14)
PROC: 05BA4ZZ Excision of Left Brachial Vein, Percutaneous Endoscopic Approach (ICD-10-PCS; 2023-05-14)
PROC: 5A1221Z Performance of Cardiac Output, Continuous (ICD-10-PCS; 2023-05-14)
PROC: 02L70CK Occlusion of Left Atrial Appendage with Extraluminal Device, Open Approach (ICD-10-PCS; 2023-05-14)
PROC: B24BZZ4 Ultrasonography of Heart with Aorta, Transesophageal (ICD-10-PCS; 2023-05-14)
PROC: 4A0305C Measurement of Arterial Flow, Coronary, Open Approach (ICD-10-PCS; 2023-05-14)
PROC: 30243H0 Transfusion of Autologous Whole Blood into Central Vein, Percutaneous Approach (ICD-10-PCS; 2023-05-14)
PROC: 30233J1 Transfusion of Nonautologous Serum Albumin into Peripheral Vein, Percutaneous Approach (ICD-10-PCS; 2023-05-14)
PROC: 02110Z9 Bypass Coronary Artery, Two Arteries from Left Internal Mammary, Open Approach (ICD-10-PCS; principal; 2023-05-14 08:00)
PROC: 02110AW Bypass Coronary Artery, Two Arteries from Aorta with Autologous Arterial Tissue, Open Approach (ICD-10-PCS; 2023-05-14 08:00)
PROC: 021009W Bypass Coronary Artery, One Artery from Aorta with Autologous Venous Tissue, Open Approach (ICD-10-PCS; 2023-05-14 08:00)
DX: I25.10 Atherosclerotic heart disease of native coronary artery without angina pectoris (principal); I30.8 Other forms of acute pericarditis; D62 Acute posthemorrhagic anemia; J98.11 Atelectasis; I42.9 Cardiomyopathy, unspecified; E11.65 Type 2 diabetes mellitus with hyperglycemia; I11.9 Hypertensive heart disease without heart failure; E78.5 Hyperlipidemia, unspecified; Z28.310 Unvaccinated for COVID-19; Z79.899 Other long term (current) drug therapy; Z79.82 Long term (current) use of aspirin; Z79.85 Long-term (current) use of injectable non-insulin antidiabetic drugs; Z86.16 Personal history of COVID-19; Z82.49 Family history of ischemic heart disease and other diseases of the circulatory system
CPT/HCPCS: 36600; 71045; 71046; 80048; 80053; 82330; 82805; 83036; 83735; 85025; 85027; 85610; 85730; 86022; 86850; 86891; 86900; 86901; 86920; 94002; 94640

== ENCOUNTER 2024-08-19 06:42 | Day surgery (SDC) | payer OTHER ==
[2024-08-14 10:21] VITALS: BMI 26.9
[~2024-08-19 06:42] MED LIST changes: -ALBUMIN HUMAN 25% 50 ML IV ONE; -ALBUMIN HUMAN 5% 500 ML IVPB ONE; -ASPIRIN 325 MG TAB PO ONE; -ATORVASTATIN 10 MG TAB PO ONE; -CALCIUM CHLORIDE 100 MG/ML 10 ML SYRINGE IV ONE; -CHLORHEXIDINE GLUCONATE 15 ML CUP MUCOUS MEM ONE; -CLEVIDIPINE BUTYRATE 25 MG in EMPTY BAG 1 BAG IV ONE; -DILTIAZEM 125 MG in SODIUM CHLORIDE 0.9% 100 ML IV ONE; -ELECTROLYTE-A SOLUTION 1,000 ML with POTASSIUM CHLORIDE 100 MEQ, MAGNESIUM SULFATE 16 M... IV ONE; -ELECTROLYTE-A SOLUTION 1,000 ML with POTASSIUM CHLORIDE 40 MEQ, MAGNESIUM SULFATE 16 ME... IV ONE; -HEPARIN SODIUM 1,000 UN/ML (10ML VL) IV ONE; -HEPARIN SODIUM,PORCINE (1 ML) 5,000 UNIT in SODIUM CHLORIDE 0.9% 500 ML 500 ML IV ONE; -INSULIN REGULAR 100 UNIT in SODIUM CHLORIDE 0.9% 100 ML IV ONE; -LACTATED RINGERS 1,000 ML IV ONE; +LIDOCAINE 1% (10MG/ML) FOR IV START INTRADERMA PRN; -MAGNESIUM SULFATE 16.24 MEQ in EMPTY SYRINGE 1 SYR IV ONE; -MANNITOL 25% 12.5 GM/50 ML VIAL IV ONE; -METOPROLOL TARTRATE 12.5 MG TAB PO ONE; -NITROGLYCERIN SL TABS 0.4 MG TAB SUBLINGUAL ONE; -NITROGLYCERIN-D5W PMX 25 MG/250 ML BTL IV ONE; -NITROGLYCERIN-D5W PMX 50 MG in DEXTROSE/WATER 1 250ML.BAG IV ONE; -NOREPINEPHRINE 4 MG in SODIUM CHLORIDE 0.9% 250 ML IV ONE; -PAPAVERINE 360 MG in SODIUM CHLORIDE 0.9% 90 ML IV ONE; -PHENYLEPHRINE 10 MG/ML VIAL IV ONE; -PHENYLEPHRINE 40 MG in SODIUM CHLORIDE 0.9% 250 ML IV ONE; -PROTAMINE SULFATE 10 MG/ML 25 ML VIAL IV ONE; -PROTAMINE SULFATE 250 MG in EMPTY BAG 1 BAG IV ONE; -SODIUM BICARB 8.4% 50 ML SYR (1 MEQ/ML) IV ONE; -SODIUM CHLORIDE 0.9% 1,000 ML IV ONE; -TRANEXAMIC ACID 2,000 MG in SODIUM CHLORIDE 0.9% 80 ML IV ONE; -ceFAZolin 1,000 MG in SODIUM CHLORIDE 0.9% IRRIGATIO 1,000 ML IRRIGATION ONE; -propofoL 1,000 MG/100 ML VIAL IV ONE
[2024-08-19 07:16] VITALS: TEMP 97.6
[2024-08-19] MEDS: LACTATED RINGERS 1,000 ML IV SCH (07:20)
[2024-08-19] MEDS: IV FLUID CONTINUATION 1,000 ML IV ONE (07:20)
[2024-08-19 07:32] LABS: Glucose,Whole Blood 101 mg/dL (70-110)
[2024-08-19] MEDS ORDERED: PROPOFOL 10 MG/ML 20 ML VIAL IV ONE (07:37)
--- NOTE | 2024-08-19 07:39 | P.GSHP ---
History of Present Illness H&P Date: 08/19/24 CHIEF COMPLAINT: Colon screen HISTORY OF PRESENT ILLNESS: The patient is a 58-year-old male who presents for colon screen. Lower endoscopy was offered for further evaluation and management. PAST MEDICAL HISTORY: Please see list. PAST SURGICAL HISTORY: Please see list. MEDICATIONS: Please see list. ALLERGIES: Please see list. SOCIAL HISTORY: No illicit drug use FAMILY HISTORY: No reports of Crohn disease or ulcerative colitis. REVIEW OF ORGAN SYSTEMS: CONSTITUTIONAL: No reports of fevers or chills. PHYSICAL EXAM: VITAL SIGNS: Stable GENERAL: Well-developed pleasant in no acute distress. HEENT: No scleral icterus. Extraocular movements grossly intact. Moist buccal mucosa. NECK: Supple without lymphadenopathy. CHEST: Unlabored respirations. Equal bilateral excursions. CARDIOVASCULAR: Regular rate and rhythm. Distal 2+ pulses. ABDOMEN: Soft, nontender, nondistended. MUSCULOSKELETAL: No clubbing, cyanosis, or edema. ASSESSMENT: 1. Colon screen. PLAN: 1. Recommend proceeding with a lower endoscopy Past Medical History Past Medical History: Coronary Artery Disease (CAD), Diabetes Mellitus, Hyperlipidemia Additional Past Medical History / Comment(s): hx of covid x2, remains unvaccinated, quintuple bypass 2022 no stents History of Any Multi-Drug Resistant Organisms: None Reported Past Surgical History: Heart Catheterization Additional Past Surgical History / Comment(s): bilateral cataracts, wisdom teeth., open heart Past Anesthesia/Blood Transfusion Reactions: No Reported Reaction Additional Past Anesthesia/Blood Transfusion Reaction / Comment(s): no blood transfusion Smoking Status: Never smoker - Past Family History Mother Family Medical History: Congestive Heart Failure (CHF), Diabetes Mellitus Additional Family Medical History / Comment(s): Mom Father Family Medical History: Hypertension Medications and Allergies Home Medications Medication Instructions Recorded Confirmed Type Aspirin [Adult Low Dose Aspirin EC] 81 mg PO DAILY 05/06/23 08/19/24 History Metoprolol Tartrate [Lopressor] 25 mg PO BID 05/06/23 08/19/24 History Rosuvastatin Calcium [Crestor] 40 mg PO HS 05/06/23 08/19/24 History Tirzepatide [Mounjaro] 2.5 mg SQ SA 05/06/23 08/19/24 History Acetaminophen Tab [Tylenol] 1,000 mg PO Q6HR PRN tab 05/19/23 08/19/24 Rx Dapagliflozin Propanediol [Farxiga] 10 mg PO DAILY #30 tab 05/19/23 08/19/24 Rx lisinopriL [Zestril] 2.5 mg PO DAILY #30 tab 05/19/23 08/19/24 Rx Ezetimibe [Zetia] 10 mg PO DAILY 08/14/24 08/19/24 History Allergies Allergy/AdvReac Type Severity Reaction Status Date / Time No Known Allergies Allergy Verified 08/19/24 07:16 Surgical - Exam Vital Signs Temp Pulse Resp BP Pulse Ox 97.6 F 80 18 117/67 98 08/19/24 07:15 08/19/24 07:15 08/19/24 07:15 08/19/24 07:15 08/19/24 07:15
--- NOTE | 2024-08-19 08:03 | P.PCN ---
Date of Procedure: 08/19/24 Description of Procedure: PREOPERATIVE DIAGNOSIS: Colonoscopy screening. POSTOPERATIVE DIAGNOSIS: Colonoscopy screening. OPERATION: Colonoscopy to the cecum, ileocecal valve and appendiceal orifice. SURGEON: Stacie Hensley MD. ANESTHESIA: MAC. INDICATIONS: The patient is a 58-year-old female who presents for colonoscopy screening. Benefits and risks were described and informed consent was obtained. DESCRIPTION OF PROCEDURE: The patient had undergone GoLytely prep. The patient had been brought into the operating room and laid in the left lateral decubitus position. After adequate intravenous sedation, the rectum was examined with 2% lidocaine jelly. External hemorrhoids were encountered. The rectal tone was within normal limits. No lesions were palpated in the rectal vault. An Olympus colonoscope was advanced until the cecum, ileocecal valve and appendiceal orifice were clearly viewed. The prep was excellent. No scattered diverticulosis was encountered. No colonic polyps were found. No evidence of focal colitis was found. Retroflexion of the scope demonstrated grade 1 internal hemorrhoids without active bleeding or inflammation. The colon was desufflated. The patient had tolerated the procedure well. Withdrawal time was over 6 minutes. FINDINGS: Aronchick preparation quality scale 2 (1-5) Internal hemorrhoids, grade 1 External prolapsed hemorrhoids, grade 2 No arteriovenous malformations. No adenomatous polyps. No focal colitis. Redundant sigmoid colon RECOMMENDATIONS: Lower endoscopy 10 years, 2033 Plan - Discharge Summary Discharge Rx Participant: No New Discharge Prescriptions: Continue Rosuvastatin Calcium [Crestor] 40 mg PO HS Aspirin [Adult Low Dose Aspirin EC] 81 mg PO DAILY Metoprolol Tartrate [Lopressor] 25 mg PO BID Ezetimibe [Zetia] 10 mg PO DAILY Tirzepatide [Mounjaro] 2.5 mg SQ SA Acetaminophen Tab [Tylenol] 1,000 mg PO Q6HR PRN tab PRN Reason: Fever and/ or Mild Pain lisinopriL [Zestril] 2.5 mg PO DAILY #30 tab Dapagliflozin Propanediol [Farxiga] 10 mg PO DAILY #30 tab Discharge Medication List Aspirin [Adult Low Dose Aspirin EC] 81 mg PO DAILY 05/06/23 [History] Metoprolol Tartrate [Lopressor] 25 mg PO BID 05/06/23 [History] Rosuvastatin Calcium [Crestor] 40 mg PO HS 05/06/23 [History] Tirzepatide [Mounjaro] 2.5 mg SQ SA 05/06/23 [History] Acetaminophen Tab [Tylenol] 1,000 mg PO Q6HR PRN tab 05/19/23 [Rx] Dapagliflozin Propanediol [Farxiga] 10 mg PO DAILY #30 tab 05/19/23 [Rx] lisinopriL [Zestril] 2.5 mg PO DAILY #30 tab 05/19/23 [Rx] Ezetimibe [Zetia] 10 mg PO DAILY 08/14/24 [History] Follow up Appointment(s)/Referral(s): Stacie Hensley MD [STAFF PHYSICIAN] - As Needed Patient Instructions/Handouts: *Surgery [facility] - (Anesthesia) Discharge Instruc tions Outpatient Surgery, Colonoscopy (DC) Activity/Diet/Wound Care/Special Instructions: May resume all medications Repeat colonoscopy in 10 years, 2033 REST TODAY, ENCOURAGE FLUIDS AT HOME Discharge Disposition: HOME SELF-CARE
[2024-08-19 08:09] VITALS: RESP 16
[2024-08-19 08:35] VITALS: BP 118/86; PULSE 69
== END 2024-08-19 09:00 | disposition home or self-care (01) ==
LOC: ORWHC2ENDO 06:42
PROVIDERS: ATTEND Surgery Plastic and Reconstructive Surgery
DX: Z12.11 Encounter for screening for malignant neoplasm of colon (principal); K64.1 Second degree hemorrhoids; K63.89 Other specified diseases of intestine; E11.9 Type 2 diabetes mellitus without complications; I25.10 Atherosclerotic heart disease of native coronary artery without angina pectoris; E78.5 Hyperlipidemia, unspecified; Z79.82 Long term (current) use of aspirin; Z79.899 Other long term (current) drug therapy; Z79.85 Long-term (current) use of injectable non-insulin antidiabetic drugs; Z98.890 Other specified postprocedural states; Z95.1 Presence of aortocoronary bypass graft; Z98.41 Cataract extraction status, right eye; Z98.42 Cataract extraction status, left eye; Z82.49 Family history of ischemic heart disease and other diseases of the circulatory system; Z83.3 Family history of diabetes mellitus
CPT/HCPCS: 45378; J2704